=== PATIENT | male | born 1990 | race African-American/Black ===

== ENCOUNTER 2016-06-07 23:53 | Emergency (ER) | payer OTHER ==
[~2016-06-07] VITALS: Ht 160 cm; Wt 63.5 kg
[~2016-06-07 23:53] MED LIST: HYDREA500 M1 PO; PERCOCET 5-3251 EACH PO; ZOFRAN ODT4 M1 PO
--- NOTE | 2016-06-08 01:36 | ED GENERAL ADULT ---
History of Present Illness General Chief Complaint: General Adult Stated Complaint: PT STATES " SICKLE CELL PAIN" Source: patient Exam Limitations: no limitations Vital Signs & Intake/Output Vital Signs & Intake/Output Vital Signs Date Time Temp Pulse Resp B/P Pulse O2 O2 Flow FiO2 Ox Delivery Rate 06/08 0103 98.9 80 18 126/70 91 Allergies Coded Allergies: aspirin (Mild, GI UPSET 05/28/16) hydromorphone (From DILAUDID) (Mild, HIVES AND NAUSEA 05/28/16) ibuprofen (Mild, GI ISSUES 05/28/16) Reconcile Medications Hydroxyurea (Hydrea) 500 MG CAPSULE 1 TAB PO D SICKLE CELL Ondansetron (Zofran Odt) 4 MG TAB.RAPDIS 1 TAB PO Q6 PRN NAUSEA Oxycodone HCl/Acetaminophen (Percocet 5-325 MG Tablet) 5 MG-325 MG TABLET 1 TAB PO Q4-6 PRN PAIN Triage Note: PT WITH HX SICKLE CELL C/O BACK PAIN, BILAT LEG AND ARM PAIN AND SOB FOR A FEW HOURS Triage Nurses Notes Reviewed? yes Onset: Gradual Duration: hour(s):, waxing and waning Timing: recent history Injury Environment: home Severity: moderate Modifying Factors: Improves With: rest. Associated Symptoms: back pain, "body pain" HPI: 26 yo gentleman h/o sickle cell disease with occasional pain crises, presents with back and bilateral leg pain consistent with his prior sickle cell pain crises for the past 3 hours. He denies fever, dyspnea, cough, wheezing. He notes that he might be dehydrated. He is otherwise well. Past History Medical History Any Pertinent Medical History? see below for history Neurological: STROKE HX Gastrointestinal: GI BLEED HX Blood Disorders: sickle cell disease Surgical History Surgical History: non-contributory Psychosocial History What is your primary language Luxembourgish Family History Hx Contributory? No Review of Systems Review of Systems Constitutional: Reports: no symptoms. EENTM: Reports: no symptoms. Respiratory: Reports: no symptoms. Cardiovascular: Reports: no symptoms. GI: Reports: no symptoms. Genitourinary: Reports: no symptoms. Musculoskeletal: Reports: no symptoms. Skin: Reports: no symptoms. Neurological/Psychological: Reports: no symptoms. Hematologic/Endocrine: Reports: no symptoms. Immunologic/Allergic: Reports: no symptoms. All Other Systems: Reviewed and Negative Physical Exam Physical Exam General Appearance: well developed/nourished, mild distress Head: atraumatic, normal appearance Eyes: Bilateral: normal appearance. Ears, Nose, Throat: normal pharynx, normal ENT inspection, hearing grossly normal Neck: normal inspection, supple, full range of motion Respiratory: normal breath sounds, chest non-tender, no respiratory distress, quiet respiration, lungs clear Cardiovascular: regular rate/rhythm Gastrointestinal: normal bowel sounds, soft, non-tender Back: normal inspection Extremities: normal inspection Neurologic/Psych: no motor/sensory deficits, awake, alert, oriented x 3 Skin: intact, normal color, warm/dry Core Measures ACS in differential dx? No CVA/TIA Diagnosis: No Severe Sepsis Present: No Septic Shock Present: No Progress Differential Diagnoses I considered the following diagnoses in my evaluation of the patient: sickle cell disease vs other. Plan of Care: Orders Procedure Date/time Status TROPONIN LEVEL 06/08 140 Complete RETICULOCYTE COUNT 06/08 140 Complete COMPREHENSIVE METABOLIC PANEL 06/08 140 Complete CBC WITHOUT DIFFERENTIAL 06/08 140 Complete EKG 06/08 140 Active Laboratory Tests 06/08/16 0159: Anion Gap 12, Estimated GFR > 60, BUN/Creatinine Ratio 20.0, Glucose 94, Calcium 9.4, Total Bilirubin 5.5 H, AST 89 H, ALT 96 H, Alkaline Phosphatase 179 H, Troponin I < 0.01, Total Protein 7.7, Albumin 4.1, Globulin 3.6, Albumin/ Globulin Ratio 1.1, CBC w Diff MAN DIFF ORDERED, RBC 2.97 L, MCV 97.0 H, MCH 34.1 H, RDW 19.4 H, MPV 10.4, Segmented Neutrophils 55, Lymphocytes 28, Monocytes 16 H, Eosinophils 1, Nucleated RBCs 3 H, Platelet Estimate ADEQUATE, Polychromasia 1+, Hypochromic-Microcytic 1+, Poikilocytosis 1+, Anisocytosis 2+, Target Cells FEW, PUBS MCHC 35.2, Retic Count 5.93 H, Fld Total RBCs Counted 100 Diagnostic Imaging: Viewed by Me: Radiology Read. Discussed w/RAD: Radiology Read. CXR Impression: no acute abnormality, no infiltrates, normal mediastinum, ENLARGED CARDIAC SILHOUETTE Initial ED EKG: normal axis, normal intervals, normal p-waves, normal QRS complex, normal sinus rhythm, LVH Comments: PATIENT: SHAYAN PENALOZA PRESENT AGE: 26 PATIENT ACCOUNT NO: [id number] : 90 LOCATION: [facility] ORDERING PHYSICIAN: ALYCE MARROQUIN MD SERVICE DATE: 06/08/16 EXAM TYPE: RAD - XRY-PORTABLE CHEST XRAY EXAMINATION: XR PORTABLE CHEST CLINICAL INFORMATION: Dyspnea COMPARISON: None. TECHNIQUE: AP portable upright view of the chest FINDINGS: Cardiac silhouette is enlarged. Pulmonary vascularity is normal. Lungs are clear. No consolidation, pneumothorax, or pleural effusion. Tubular radiodense structure overlies the right upper quadrant, most likely external to the patient. Foci of sclerosis are present at the humeral heads bilaterally, potentially due to areas of bone infarct. IMPRESSION: Enlarged cardiac silhouette, either due to cardiomegaly or a pericardial effusion. No acute pulmonary findings DICTATED BY: KEVON TIRADO MD DATE/TIME DICTATED:06/08/16230 HISTOPATHOLOGIST:ULI DATE/TIME TRANSCRIBED:06/08/16230 CONFIDENTIAL, DO NOT COPY WITHOUT APPROPRIATE AUTHORIZATION. <Electronically signed in Other Vendor System> SIGNED BY: KEVON TIRADO MD 06/08/16235 Departure Departure Disposition: HOME OR SELF CARE Condition: Stable Clinical Impression Primary Impression: Sickle cell pain crisis Referrals: UNKNOWN (PCP/Family) Departure Forms: Customer Survey General Discharge Information Comments 06/08/15, 6:24am... pt feeling well after several rounds of morphine. His pulse is 60. He is otherwise well. His labs are stable. He would like to go home. Pt stable for discharge. Critical Care Note Critical Care Note Critical Care Time: non-applicable
--- NOTE | 2016-06-08 02:36 | RADIOLOGY REPORT ---
EXAMINATION: XR PORTABLE CHEST CLINICAL INFORMATION: Dyspnea COMPARISON: None. TECHNIQUE: AP portable upright view of the chest FINDINGS: Cardiac silhouette is enlarged. Pulmonary vascularity is normal. Lungs are clear. No consolidation, pneumothorax, or pleural effusion. Tubular radiodense structure overlies the right upper quadrant, most likely external to the patient. Foci of sclerosis are present at the humeral heads bilaterally, potentially due to areas of bone infarct. IMPRESSION: Enlarged cardiac silhouette, either due to cardiomegaly or a pericardial effusion. No acute pulmonary findings
[2016-06-08 02:42] LABS: HEMATOCRIT 28.8 % (42-52); MEAN CORPUSCULAR HGB 34.1 PG (27.0-31.0); MEAN CORPUSCULAR HGB CONC 35.2 G/DL (33.0-37.0); MEAN PLATELET VOLUME 10.4 FL (7.4-10.4); PLATELET COUNT 292 /CUMM (130-400); RBC DISTRIBUTION WIDTH 19.4 % (11.5-14.5); RED BLOOD CELL CT 2.97 /CUMM (4.70-6.10)
[2016-06-08 02:43] LABS: WHITE BLOOD CELL COUNT 9.5 /CUMM (4.8-10.8)
[2016-06-08 06:37] VITALS: BP 91/57
== END 2016-06-08 07:08 ==
LOC: ERH 23:53
PROVIDERS: Pediatrics
DX: D57.00 Hb-SS disease with crisis, unspecified (principal); M79.604 Pain in right leg; M79.605 Pain in left leg; R06.02 Shortness of breath; M79.601 Pain in right arm; M79.602 Pain in left arm
CPT/HCPCS: 93005; 93010; 96374; 96375; J1200; J2405

== ENCOUNTER 2016-06-22 11:19 | Emergency (ER) | payer OTHER ==
[~2016-06-22] VITALS: Ht 162.6 cm; Wt 63.5 kg
[2016-06-22] MEDS ORDERED: PROAIR HFA8.5 GM INH (11:39)
[2016-06-22] MEDS ORDERED: MONTELUKAST SOD10 M1 PO (11:40)
[2016-06-22] MEDS ORDERED: SYMBICORT 16010.2 GM INH (11:40)
[2016-06-22] MEDS ORDERED: PANTOPRAZOLE SO40 M1 PO (11:40)
[2016-06-22] MEDS ORDERED: LISINOPRIL5 M1 PO (11:40)
[2016-06-22] MEDS ORDERED: VITAMIN D250000 UNIT PO (11:40)
[2016-06-22] MEDS ORDERED: FOLIC ACID1 M1 PO (11:41)
[2016-06-22] MEDS ORDERED: MORPHINE SULFAT30 M3 PO (11:41)
--- NOTE | 2016-06-22 12:02 | ED GENERAL ADULT ---
History of Present Illness General Chief Complaint: General Adult Stated Complaint: BODY ACHES; NAUSEA Source: patient Exam Limitations: no limitations Vital Signs & Intake/Output Vital Signs & Intake/Output Vital Signs Date Time Temp Pulse Resp B/P Pulse O2 O2 Flow FiO2 Ox Delivery Rate 06/22 1526 97.8 77 18 118/69 96 Room Air 06/22 1311 97.4 74 18 121/66 94 Room Air 06/22 1125 98.9 85 18 149/77 98 Room Air Room Air Allergies Coded Allergies: aspirin (Mild, GI UPSET 05/28/16) hydromorphone (From DILAUDID) (Mild, HIVES AND NAUSEA 05/28/16) ibuprofen (Mild, GI ISSUES 05/28/16) Reconcile Medications Albuterol Sulfate (Proair Hfa) 90 MCG HFA.AER.AD 2 PUF INH Q4-6 PRN PRN BREATHING PROBLEMS (Reported) Budesonide/Formoterol Fumarate (Symbicort 160-4.5 Mcg Inhaler) 160 MCG-4.5 MCG/ ACTUATION HFA.AER.AD 2 PUF INH BID BREATHING PROBLEMS (Reported) Ergocalciferol (Vitamin D2) (Vitamin D2) 50,000 UNIT CAPSULE 1 CAP PO QW SUPPLEMENT (Reported) Folic Acid 1 MG TABLET 1 TAB PO DAILY SUPPLEMENT (Reported) Hydroxyurea (Hydrea) 500 MG CAPSULE 1 TAB PO D SICKLE CELL Lisinopril 5 MG TABLET 1 TAB PO DAILY HEART (Reported) Montelukast Sodium 10 MG TABLET 1 TAB PO DAILY ALLERGIES (Reported) Morphine Sulfate (Morphine Sulfate ER) 30 MG TABLET.ER 1 TAB PO BIDP PRN PAIN (Reported) Ondansetron (Zofran Odt) 4 MG TAB.RAPDIS 1 TAB PO Q6 PRN NAUSEA Pantoprazole Sodium 40 MG TABLET.DR 1 TAB PO DAILY GI (Reported) Triage Note: TRIAGE: 26 Y/O MALE PRESENTS W PMHX OF SICKLE CELL ANEMIA. NOW C/O BODY ACHES ADN NAUSEA. AFEBRILE IN TRIAGE. Triage Nurses Notes Reviewed? yes Onset: Abrupt Duration: day(s): (1), constant, continues in ED Timing: recent history Injury Environment: home Severity: moderate, severe No Modifying Factors: none HPI: 26-year-old male comes into emergency room for further evaluation of general body pain as well as nausea. Patient has a history of sickle cell anemia reports that the pain feels similar. Patient is also experiencing some abdominal pain which is new for him. Denies any fever. Denies any upper respiratory symptoms or cough. Denies any vomiting. Patient reports that he had some associated chest tightness and shortness of breath previously. Patient usually goes to [facility] but is currently with a friend that is locaL. Patient reports it feels like his previous sickle cell other than the abdominal pain. (JENNIFER MUNOZ) Past History Travel History Traveled to [place] past 21 day No Medical History Any Pertinent Medical History? see below for history Neurological: STROKE HX Gastrointestinal: GI BLEED HX Blood Disorders: SICKLE CELL ANEMIA Surgical History Surgical History: non-contributory Psychosocial History What is your primary language Maltese Tobacco Use: Never used ETOH Use: occasional use Illicit Drug Use: denies illicit drug use Family History Hx Contributory? No (JENNIFER MUNOZ) Review of Systems Review of Systems Constitutional: Reports: see HPI. EENTM: Reports: no symptoms. Respiratory: Reports: no symptoms. Cardiovascular: Reports: no symptoms. GI: Reports: see HPI. Genitourinary: Reports: no symptoms. Musculoskeletal: Reports: no symptoms. Skin: Reports: no symptoms. Neurological/Psychological: Reports: no symptoms. Hematologic/Endocrine: Reports: no symptoms. Immunologic/Allergic: Reports: no symptoms. All Other Systems: Reviewed and Negative (JENNIFER MUNOZ) Physical Exam Physical Exam General Appearance: well developed/nourished, no apparent distress, alert, awake Head: atraumatic, normal appearance, active bleeding Eyes: Bilateral: normal appearance, EOMI. Ears, Nose, Throat: normal pharynx, normal ENT inspection Neck: normal inspection Respiratory: normal breath sounds, no respiratory distress Cardiovascular: regular rate/rhythm Gastrointestinal: soft, tenderness (mild periumbilical) Back: normal inspection Extremities: normal inspection, normal range of motion Neurologic/Psych: awake, alert, oriented x 3, normal gait Skin: intact, normal color Core Measures ACS in differential dx? Yes CVA/TIA Diagnosis: No Severe Sepsis Present: No Septic Shock Present: No (JENNIFER MUNOZ) Progress Differential Diagnoses I considered the following diagnoses in my evaluation of the patient: Sickle cell crisis, influenza, viral syndrome, appendicitis, diverticulitis, [place], Plan of Care: Orders Procedure Date/time Status Add-on Test (ER Only) 06/22 1348 Active DIRECT BILIRUBIN 06/22 1220 Complete RAPID VIRAL INFLUENZA A 06/22 1151 Complete TROPONIN LEVEL 06/22 1151 Complete RETICULOCYTE COUNT 06/22 1151 Complete COMPREHENSIVE METABOLIC PANEL 06/22 1151 Complete CBC WITHOUT DIFFERENTIAL 06/22 1151 Complete EKG 06/22 1151 Active Laboratory Tests 06/22/16 1220: Anion Gap 7, Estimated GFR > 60, BUN/Creatinine Ratio 8.3, Glucose 89, Calcium 9.1, Total Bilirubin 4.1 H, Direct Bilirubin 0.9 H, AST 79 H, ALT 58, Alkaline Phosphatase 172 H, Troponin I 0.01, Total Protein 7.2, Albumin 4.0, Globulin 3.2, Albumin/Globulin Ratio 1.3, CBC w Diff MAN DIFF ORDERED, RBC 2.80 L, MCV 105.2 H, MCH 35.6 H, RDW 21.8 H, MPV 11.3 H, Gran % 45.9, Lymphocytes % 30.2, Monocytes % 18.3 H, Eosinophils % 3.2, Basophils % 2.4 H, Absolute Granulocytes 3.4, Segmented Neutrophils 44, Band Neutrophils 1, Absolute Lymphocytes 2.2, Lymphocytes 36, Monocytes 18 H, Absolute Monocytes 1.4 H, Eosinophils 1, Absolute Eosinophils 0.2, Absolute Basophils 0.2, Nucleated RBCs 9 H, Polychromasia 2+, Poikilocytosis 3+, Anisocytosis 3+, Macrocytic Cells 3+, Target Cells 1+, Ovalocytes 1+, PUBS MCHC 33.8, Retic Count 8.38 H Initial ED EKG: normal intervals, normal p-waves, normal sinus rhythm, rate (69) Comments: 06/22/2016 2:39:14 PM Patient has been reevaluated multiple times here in the emergency room. Patient has been in no apparent distress. Patient has been on his phone listening to his head phone. Patient has no acute abdomen on exam. No guarding. No rebound tenderness. No suspicion for appendicitis at this time. Discussed early possibility. At this time I do not feel patient needs CAT scan. Case discussed with Dr. Fishman. Patient to return immediately if any other concerns worsening symptoms. Patient has previous sickle cell anemia pain is consistent with previous sickle cell anemia. It was recommended to the patient that he should go to the hospital where all his hematologists are if his symptoms are persistent. (JENNIFER MUNOZ) Departure Departure Disposition: HOME OR SELF CARE Condition: Stable Clinical Impression Primary Impression: Sickle cell anemia Referrals: PATIENT HAS NO PRIMARY CARE DR (PCP/Family) Additional Instructions: If your symptoms persist and get worse go to [facility]. Return to emergency room if any concerns worsening symptoms. Please go over all results of today's visit with your primary care doctor. Contact your primary care doctor to let them know you were here in the emergency room. There may be nonspecific findings which may not be related to your visit today here in the emergency room but may require further evaluation and chronic monitoring by your primary care doctor. If you had a laceration today the chance of foreign body always remains. You should follow-up with your primary care doctor for recheck in 3-5 days for a wound check. If you had an x-ray done there is a chance that a fracture could have been missed on initial read and you should follow-up with your primary care doctor for repeat x-rays if symptoms persist. If your blood pressure was elevated here in the emergency room please have rechecked by her primary care doctor within the next 48 hours by your primary care doctor. If you were prescribed a narcotic here in the emergency room or any type of controlled substances you're not allowed to drive while taking this medication or operate any type of heavy machinery. Narcotics can make you feel lightheaded dizziness nausea and can cause constipation. You may need to nut picker a stool softener. Thank you for choosing [facility] emergency room. Please return to the emergency room immediately if you have any other concerns worsening of symptoms. Departure Forms: Customer Survey General Discharge Information (JENNIFER MUNOZ) PA/RETAIL LOSS PREVENTION SPECIALIST Co-Sign Statement Statement: ED Attending supervision documentation- [] I saw and evaluated the patient. I have also reviewed all the pertinent lab results and diagnostic results. I agree with the findings and the plan of care as documented in the PA's/RETAIL LOSS PREVENTION SPECIALIST's documentation. [X] I have reviewed the ED Record and agree with the PA's/RETAIL LOSS PREVENTION SPECIALIST's documentation. [] Additions or exceptions (if any) to the PAs/RETAIL LOSS PREVENTION SPECIALIST's note and plan are summarized below: [] (KEVIN FLOWERS,MAI Churchill) Critical Care Note Critical Care Note Critical Care Time: non-applicable (JOSE C MUNOZNTON)
[2016-06-22 12:41] LABS: ABSOLUTE BASOPHIL COUNT 0.2 /CUMM (0.0-0.2); ABSOLUTE EOSINOPHIL COUNT 0.2 /CUMM (0.0-0.7); HEMATOCRIT 29.5 % (42-52); MEAN CORPUSCULAR HGB 35.6 PG (27.0-31.0); MEAN CORPUSCULAR HGB CONC 33.8 G/DL (33.0-37.0); MEAN CORPUSCULAR VOLUME 105.2 FL (80.0-94.0); MEAN PLATELET VOLUME 11.3 FL (7.4-10.4); PLATELET COUNT 163 /CUMM (130-400); RBC DISTRIBUTION WIDTH 21.8 % (11.5-14.5)
[2016-06-22 12:58] LABS: WHITE BLOOD CELL COUNT 7.4 /CUMM (4.8-10.8)
[2016-06-22 12:59] LABS: ABSOLUTE GRANULOCYTE CT 3.4 /CUMM (1.4-6.5); ABSOLUTE LYMPH COUNT 2.2 /CUMM (1.2-3.4); ABSOLUTE MONOCYTE COUNT 1.4 /CUMM (0.10-0.60); BASOPHIL % 2.4 % (0.0-2.0); EOSINOPHIL % 3.2 % (0-5); GRANULOCYTE % 45.9 % (42.2-75.2)
[2016-06-22 15:26] VITALS: BP 118/69
== END 2016-06-22 15:27 ==
LOC: ERH 11:19
PROVIDERS: Physician Assistant Medical
DX: D57.1 Sickle-cell disease without crisis (principal); R07.89 Other chest pain; R10.9 Unspecified abdominal pain
CPT/HCPCS: 87804; 87804-59; 93005; 93010; 96374; 96375; 96376; J2405

== ENCOUNTER 2016-07-20 12:55 | Emergency (ER) | payer OTHER ==
[~2016-07-20] VITALS: Ht 167.6 cm; Wt 63.5 kg
[~2016-07-20 12:55] MED LIST changes: +FOLIC ACID1 M1 PO; +LISINOPRIL5 M1 PO; +MONTELUKAST SOD10 M1 PO; +MORPHINE SULFAT30 M3 PO; +PANTOPRAZOLE SO40 M1 PO; +PROAIR HFA8.5 GM INH; +SYMBICORT 16010.2 GM INH; +VITAMIN D250000 UNIT PO
--- NOTE | 2016-07-20 13:46 | ED GENERAL ADULT ---
History of Present Illness General Chief Complaint: General Adult Stated Complaint: SICKLE CELL PAIN Source: patient Exam Limitations: no limitations Allergies Coded Allergies: aspirin (Mild, GI UPSET 07/20/16) hydromorphone (From DILAUDID) (Mild, HIVES AND NAUSEA 07/20/16) ibuprofen (Mild, GI ISSUES 07/20/16) Triage Note: PT TO ED WITH C/O "ALL OVER SICKLE CELL PAIN, TAKING PRESCRIBED MORPHINE, NOT HELPING". LAST MORPHINE 0300 THIS MORNING. Triage Nurses Notes Reviewed? yes HPI: 26-year-old male with significant past medical history of sickle cell anemia seen for evaluation of pain in his arms and legs. He reports worsening pain in his upper and lower extremities since about noon yesterday. He denies any recent trauma or any ill contacts. He denies any chest or abdominal pain but does admit to associated nausea. Additionally he denies any headache, fever, chills, palpitations, shortness of breath, vomiting, diarrhea. His fuel cell repairer is located at [facility] and he has been reportedly been coming to [facility] recently because he is living "in the area"with his best friend. (MADAY FLOWERS,FABIOLA) Vital Signs & Intake/Output Vital Signs & Intake/Output Vital Signs Date Time Temp Pulse Resp B/P Pulse O2 O2 Flow FiO2 Ox Delivery Rate 07/20 1346 100 Room Air 07/20 1303 97.1 81 20 109/67 95 Room Air Room Air Reconcile Medications Albuterol Sulfate (Proair Hfa) 90 MCG HFA.AER.AD 2 PUF INH Q4-6 PRN PRN BREATHING PROBLEMS (Reported) Budesonide/Formoterol Fumarate (Symbicort 160-4.5 Mcg Inhaler) 160 MCG-4.5 MCG/ ACTUATION HFA.AER.AD 2 PUF INH BID BREATHING PROBLEMS (Reported) Ergocalciferol (Vitamin D2) (Vitamin D2) 50,000 UNIT CAPSULE 1 CAP PO QW SUPPLEMENT (Reported) Folic Acid 1 MG TABLET 1 TAB PO DAILY SUPPLEMENT (Reported) Hydroxyurea (Hydrea) 500 MG CAPSULE 1 TAB PO D SICKLE CELL Lisinopril 5 MG TABLET 1 TAB PO DAILY HEART (Reported) Montelukast Sodium 10 MG TABLET 1 TAB PO DAILY ALLERGIES (Reported) Morphine Sulfate (Morphine Sulfate ER) 30 MG TABLET.ER 1 TAB PO BIDP PRN PAIN (Reported) Morphine Sulfate 15 MG TABLET 1 TAB PO BIDP PRN PAIN (Reported) Ondansetron (Zofran Odt) 4 MG TAB.RAPDIS 1 TAB PO Q6 PRN NAUSEA Pantoprazole Sodium 40 MG TABLET.DR 1 TAB PO DAILY GI (Reported) (BRYON FLOWERS,HECTOR Negrete) Past History Travel History Traveled to [place] past 21 day No Medical History Any Pertinent Medical History? see below for history Neurological: STROKE HX EENT: NONE Cardiovascular: hypertension Respiratory: asthma Gastrointestinal: GI BLEED HX Hepatic: NONE Renal: NONE Musculoskeletal: NONE Psychiatric: depression Endocrine: hypothyroidism Blood Disorders: SICKLE CELL ANEMIA Cancer(s): NONE TRAINING OFFICER/Reproductive: NONE Surgical History Surgical History: non-contributory Psychosocial History What is your primary language East Timorese Tobacco Use: Never used ETOH Use: denies use Illicit Drug Use: denies illicit drug use Family History Hx Contributory? Yes (FABIOLA NASSAR MD) Review of Systems Review of Systems Constitutional: Reports: see HPI. (FABIOLA NASSAR MD) Physical Exam Physical Exam General Appearance: well developed/nourished, no apparent distress, alert, awake , comfortable Comments: General -well-developed, thin -[place]ue[place] man in no acute distress HEENT - NCAT, PERRL, EOMI, anicteric sclera Cardio - S1, S2 w/o murmurs/gallops/rubs, nontender to palpation Resp - CTA bilaterally w/o wheezing/rhochi/crackles GI - soft, nontender, nondistended, bowel sounds present Neuro - Awake and alert, CN II - XII grossly intact Extremities - no edema, pulses intact, upper/lower extremity tenderness Core Measures ACS in differential dx? No CVA/TIA Diagnosis: No Severe Sepsis Present: No Septic Shock Present: No (FABIOLA NASSAR MD) Progress Differential Diagnoses I considered the following diagnoses in my evaluation of the patient: sickle cell crisis, dehydration, viral illness Initial ED EKG: none Comments: Patient has multiple admissions for similar presentations to [facility]. Previous lab work is pharmaceutical representative of a mild anemia. Patient's vital signs and physical examination do not demonstrate any acute findings, patient appears comfortable seen lying flat in bed talking on his phone in no acute distress. [place] prescription monitoring program profile demonstrates prescriptions for narcotic pain medications from different providers. Complete blood count demonstrated a mild anemia with an elevated reticulocyte count. Comprehensive metabolic panel was within normal limits. Direct bilirubin was mildly elevated Morphine was given for pain relief. Zofran was given for nausea. Patient was given intravenous normal saline. Patient is to be discharged to home with instruction to follow up with his fuel cell repairer at [facility] on his previously scheduled appointment date of July 26. (FABIOLA NASSAR MD) Plan of Care: Orders Procedure Date/time Status RETICULOCYTE COUNT 07/20 1333 Complete DIRECT BILIRUBIN 07/20 1333 Complete COMPREHENSIVE METABOLIC PANEL 07/20 1333 Complete CBC WITHOUT DIFFERENTIAL 07/20 1333 Complete Laboratory Tests 07/20/16 1340: Anion Gap 8, Estimated GFR > 60, BUN/Creatinine Ratio 11.7, Glucose 92, Calcium 9.1, Total Bilirubin 3.4 H, Direct Bilirubin 0.9 H, AST 62 H, ALT 52, Alkaline Phosphatase 175 H, Total Protein 7.1, Albumin 3.8, Globulin 3.3, Albumin/Globulin Ratio 1.2, CBC w Diff MAN DIFF ORDERED, RBC 3.01 L, MCV 101.9 H, MCH 34.1 H, RDW 18.3 H, MPV 10.0, Gran % 58.7, Lymphocytes % 23.3, Monocytes % 16.1 H, Eosinophils % 1.9, Basophils % 0 L, Absolute Granulocytes 4.6, Segmented Neutrophils 49, Absolute Lymphocytes 1.8, Lymphocytes 35, Monocytes 14 H, Absolute Monocytes 1.3 H, Eosinophils 2, Absolute Eosinophils 0.1, Absolute Basophils 0, Nucleated RBCs 8 H, Platelet Estimate VERIFIED BY SMEAR, Polychromasia 2+, Poikilocytosis 2+, Anisocytosis 2+, Macrocytic Cells 1+ , Target Cells 1+, PUBS MCHC 33.5, Retic Count 8.44 H Departure Departure Disposition: HOME OR SELF CARE Condition: Stable Clinical Impression Primary Impression: Sickle cell anemia with pain Referrals: PATIENT HAS NO PRIMARY CARE DR (PCP/Family) Additional Instructions: Follow-up with your fuel cell repairer at [facility] for further evaluation and pain management of your sickle cell disease. Follow-up with your primary care provider after discharge for further evaluation. Departure Forms: Customer Survey General Discharge Information (FABIOLA NASSAR MD) Resident Co-Sign Statement Statement: ED Attending supervision documentation- [X] I saw and evaluated the patient. I have also reviewed all the pertinent lab results and diagnostic results. I agree with the findings and the plan of care as documented in the Resident's documentation. [] I have reviewed the ED Record and agree with the Resident's documentation. [] Additions or exceptions (if any) to the Resident's note and plan are summarized below: [] (BRYON FLOWERS,HECTOR Negrete) Critical Care Note Critical Care Note Critical Care Time: non-applicable (MADAY FLOWERS,FABIOLA)
[2016-07-20] MEDS ORDERED: MORPHINE SULFAT15 M4 PO (14:01)
[2016-07-20 14:05] LABS: ABSOLUTE LYMPH COUNT 1.8 /CUMM (1.2-3.4)
[2016-07-20 14:10] LABS: ABSOLUTE BASOPHIL COUNT 0 /CUMM (0.0-0.2); ABSOLUTE EOSINOPHIL COUNT 0.1 /CUMM (0.0-0.7); ABSOLUTE GRANULOCYTE CT 4.6 /CUMM (1.4-6.5); ABSOLUTE MONOCYTE COUNT 1.3 /CUMM (0.10-0.60); BASOPHIL % 0 % (0.0-2.0); EOSINOPHIL % 1.9 % (0-5); GRANULOCYTE % 58.7 % (42.2-75.2); HEMATOCRIT 30.6 % (42-52); MEAN CORPUSCULAR HGB 34.1 PG (27.0-31.0); MEAN CORPUSCULAR HGB CONC 33.5 G/DL (33.0-37.0); MEAN CORPUSCULAR VOLUME 101.9 FL (80.0-94.0); PLATELET COUNT 360 /CUMM (130-400); RBC DISTRIBUTION WIDTH 18.3 % (11.5-14.5); RED BLOOD CELL CT 3.01 /CUMM (4.70-6.10)
[2016-07-20 14:37] LABS: WHITE BLOOD CELL COUNT 7.8 /CUMM (4.8-10.8)
[2016-07-20 15:33] VITALS: BP 117/71
== END 2016-07-20 15:58 ==
LOC: ERH 12:55
PROVIDERS: Internal Medicine Interventional Cardiology
DX: D57.00 Hb-SS disease with crisis, unspecified (principal)
CPT/HCPCS: 96361; 96374; 96375; 96376; J2405

== ENCOUNTER 2016-08-17 13:18 | Emergency (ER) | payer OTHER ==
[~2016-08-17] VITALS: Ht 162.6 cm; Wt 63.5 kg
[~2016-08-17 13:18] MED LIST changes: +MORPHINE SULFAT15 M4 PO
--- NOTE | 2016-08-17 13:26 | ED GENERAL ADULT ---
History of Present Illness General Chief Complaint: General Adult Stated Complaint: SICKLE CELL CRISIS Source: patient, old records Exam Limitations: no limitations Vital Signs & Intake/Output Vital Signs & Intake/Output Vital Signs Date Time Temp Pulse Resp B/P Pulse O2 O2 Flow FiO2 Ox Delivery Rate 08/17 1526 98.0 60 18 108/66 97 Room Air 08/17 1320 97.6 67 16 120/66 94 Room Air Allergies Coded Allergies: aspirin (Mild, GI UPSET 07/20/16) hydromorphone (From DILAUDID) (Mild, HIVES AND NAUSEA 07/20/16) ibuprofen (Mild, GI ISSUES 07/20/16) Reconcile Medications Albuterol Sulfate (Proair Hfa) 90 MCG HFA.AER.AD 2 PUF INH Q4-6 PRN PRN BREATHING PROBLEMS (Reported) Budesonide/Formoterol Fumarate (Symbicort 160-4.5 Mcg Inhaler) 160 MCG-4.5 MCG/ ACTUATION HFA.AER.AD 2 PUF INH BID BREATHING PROBLEMS (Reported) Ergocalciferol (Vitamin D2) (Vitamin D2) 50,000 UNIT CAPSULE 1 CAP PO QW SUPPLEMENT (Reported) Folic Acid 1 MG TABLET 1 TAB PO DAILY SUPPLEMENT (Reported) Hydroxyurea (Hydrea) 500 MG CAPSULE 1 TAB PO D SICKLE CELL Lisinopril 5 MG TABLET 1 TAB PO DAILY HEART (Reported) Montelukast Sodium 10 MG TABLET 1 TAB PO DAILY ALLERGIES (Reported) Morphine Sulfate (Morphine Sulfate ER) 30 MG TABLET.ER 1 TAB PO BIDP PRN PAIN (Reported) Morphine Sulfate 15 MG TABLET 1 TAB PO BIDP PRN PAIN (Reported) Ondansetron (Zofran Odt) 4 MG TAB.RAPDIS 1 TAB PO Q6 PRN NAUSEA Pantoprazole Sodium 40 MG TABLET.DR 1 TAB PO DAILY GI (Reported) Triage Note: PT STATES HE IS IN SICKLE CELL CRISIS. PT STATES HE IS HAVING PAIN AND NAUSEA. Triage Nurses Notes Reviewed? yes Onset: Abrupt Duration: day(s): (1), intermittent, waxing and waning Timing: recent history Injury Environment: home Severity: moderate Severity Numbers: 8 No Modifying Factors: none Associated Symptoms: NAUSEA HPI: Is a 26-year-old male with history of sickle cell anemia CVA DC presents emergency room for evaluation complaining of moderate aching intermittent pain waxing and waning in intensity to his arms and legs since waking this morning. He states he took one of his morphine pills at 6 AM this morning without improvement. He is been no recent injury or trauma. He is also complaining of generalized nausea no abdominal pain. He reports to similar episodes in the past. No chest pain abdominal pain fever chills no vomiting no diarrhea. The patient is seen by patternmaker bench at [facility] whom he saw yesterday for a well checkup. Past History Travel History Traveled to [place] past 21 day No Medical History Any Pertinent Medical History? 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 No Review of Systems Review of Systems Constitutional: Reports: see HPI. All Other Systems: Reviewed and Negative Comments Review of systems: See HPI, All other systems negative. Constitutional, no chills no fever, no malaise HEENT: no sore throat no congestion, no ear pain Cardiovascular: No chest pain , no palpitation , Skin, no jaundice no rashes, no change in skin Respiratory: No dyspnea no cough no sputum GI: No nausea no vomiting, no diarrhea, : No dysuria Muscle skeletal: No joint pain, no joint swelling, no back pain Neurologic: No numbness, no headache Psych: No stress Heme/endocrine: No bruising no bleeding Immunology: No lymphadenopathy, Physical Exam Physical Exam General Appearance: well developed/nourished, no apparent distress, alert, awake Peripheral Pulses: 2+ radial (R), 2+ radial (L), 2+ tibialis posterior (R), 2+ tibialis posterior ( L) Comments: Well-developed well-nourished person in no acute distress HEENT: Normal EENT exam; PERRL, EOMI, HEAD is atraumatic. moist mucous membranes. Neck: Supple, normal range of motion without pain or tenderness Back: Nontender, no CVA tenderness. Full range of motion Cardiovascular: Regular rate and rhythms no murmurs rubs Respiratory: No respiratory distress. Patient speaking in full complete sentences. Breath sounds clear to auscultation bilaterally: NO W/R/R Abdomen: Soft, nontender nondistended, no appreciable organomegaly. Normal bowel sounds. No rebound/guarding Extremity: No edema, full range of motion of extremities, 5 out of 5 strength noted to bilateral upper and lower extremities, capillary refill is within normal limits, pulses are 2+ bilaterally Neuro: Alert oriented x3, motor sensory normal, There were no obvious focal neurologic abnormalities. Skin: No appreciable rash on exposed skin, skin is warm and dry. Psych: Mood and affect is normal, memory and judgment is normal. Core Measures ACS in differential dx? No CVA/TIA Diagnosis: No Severe Sepsis Present: No Septic Shock Present: No Progress Differential Diagnoses I considered the following diagnoses in my evaluation of the patient: SICKLE CELL CRISIS, DEHYDRATION, VIRAL SYNDROME Plan of Care: Orders Procedure Date/time Status Saline Lock 08/17 1326 Active RETICULOCYTE COUNT 08/17 1326 Complete COMPREHENSIVE METABOLIC PANEL 08/17 1326 Complete CBC WITHOUT DIFFERENTIAL 08/17 1326 Complete Laboratory Tests 08/17/16 1333: Anion Gap 9, Estimated GFR > 60, BUN/Creatinine Ratio 13.3, Glucose 107 H, Calcium 9.5, Total Bilirubin 6.6 H, AST 72 H, ALT 57, Alkaline Phosphatase 171 H, Total Protein 7.5, Albumin 4.1, Globulin 3.4, Albumin/Globulin Ratio 1.2, CBC w Diff MAN DIFF ORDERED, RBC 3.14 L, MCV 97.4 H, MCH 33.4 H, RDW 19.6 H, MPV 10.2, Segmented Neutrophils 59, Lymphocytes 26, Monocytes 7, Eosinophils 6 H, Basophils 2, Nucleated RBCs 18 H, Platelet Estimate ADEQUATE, Polychromasia 2+, Hypochromic-Microcytic 2+, Poikilocytosis 3+, Anisocytosis 3+, Target Cells 1+, Ovalocytes 1+, Elliptocytes 1+, Schistocytes 1+, PUBS MCHC 34.3, Retic Count 7.37 H Old records reviewed patient medicated with morphine 4 mg IV Zofran 4 mg IV labs ordered Old records reviewed patient H&H is baseline, his elevated bilirubin 6.6 today is unchanged from previous-5.5, 4.1, 3.4 in old records Discussed with patient ALL his lab results he is feeling improved after second administration of morphine 2 mg he will follow up with his patternmaker bench on Friday, he feels comfortable this plan, i answered all of his questions. (DEAN SCHULTZ,NIURKA) Initial ED EKG: none Departure Departure Disposition: HOME OR SELF CARE Condition: Stable Clinical Impression Primary Impression: Sickle cell crisis Secondary Impressions: Elevated bilirubin Referrals: PATIENT HAS NO PRIMARY CARE DR (PCP/Family) Additional Instructions: FOLLOW UP WITH YOUR INFORMATION TECHNOLOGY ACCOUNT MANAGER ON FRIDAY. CONTINUE TAKING YOUR MEDICATIONS PRESCRIBED. Departure Forms: Customer Survey General Discharge Information Critical Care Note Critical Care Note Critical Care Time: non-applicable
[2016-08-17 13:49] LABS: HEMATOCRIT 30.6 % (42-52); MEAN CORPUSCULAR HGB 33.4 PG (27.0-31.0); MEAN CORPUSCULAR HGB CONC 34.3 G/DL (33.0-37.0); MEAN CORPUSCULAR VOLUME 97.4 FL (80.0-94.0); MEAN PLATELET VOLUME 10.2 FL (7.4-10.4); PLATELET COUNT 217 /CUMM (130-400); RBC DISTRIBUTION WIDTH 19.6 % (11.5-14.5); RED BLOOD CELL CT 3.14 /CUMM (4.70-6.10)
[2016-08-17 15:26] VITALS: BP 108/66
== END 2016-08-17 15:44 ==
LOC: ERH 13:18
PROVIDERS: Physician Assistant Medical
DX: D57.00 Hb-SS disease with crisis, unspecified (principal); R17 Unspecified jaundice
CPT/HCPCS: 96374; 96375; 96376; J2405

== ENCOUNTER 2016-09-29 15:29 | Emergency (ER) | payer OTHER ==
[~2016-09-29] VITALS: Ht 162.6 cm; Wt 63.5 kg
[2016-09-29 15:32] VITALS: BP 122/75
--- NOTE | 2016-09-29 15:43 | ED GENERAL ADULT ---
History of Present Illness General Chief Complaint: General Adult Stated Complaint: PT IS HERE NOT FEELING WELL Source: patient, old records Exam Limitations: no limitations Vital Signs & Intake/Output Vital Signs & Intake/Output Vital Signs Date Time Temp Pulse Resp B/P B/P Pulse O2 O2 Flow FiO2 Mean Ox Delivery Rate 09/29 1532 98.3 55 18 122/75 96 Room Air Allergies Coded Allergies: aspirin (Mild, GI UPSET 07/20/16) hydromorphone (From DILAUDID) (Mild, HIVES AND NAUSEA 07/20/16) ibuprofen (Mild, GI ISSUES 07/20/16) Reconcile Medications Albuterol Sulfate (Proair Hfa) 90 MCG HFA.AER.AD 2 PUF INH Q4-6 PRN PRN BREATHING PROBLEMS (Reported) Budesonide/Formoterol Fumarate (Symbicort 160-4.5 Mcg Inhaler) 160 MCG-4.5 MCG/ ACTUATION HFA.AER.AD 2 PUF INH BID BREATHING PROBLEMS (Reported) Ergocalciferol (Vitamin D2) (Vitamin D2) 50,000 UNIT CAPSULE 1 CAP PO QW SUPPLEMENT (Reported) Folic Acid 1 MG TABLET 1 TAB PO DAILY SUPPLEMENT (Reported) Hydroxyurea (Hydrea) 500 MG CAPSULE 1 TAB PO D SICKLE CELL Lisinopril 5 MG TABLET 1 TAB PO DAILY HEART (Reported) Montelukast Sodium 10 MG TABLET 1 TAB PO DAILY ALLERGIES (Reported) Morphine Sulfate (Morphine Sulfate ER) 30 MG TABLET.ER 1 TAB PO BIDP PRN PAIN (Reported) Morphine Sulfate 15 MG TABLET 1 TAB PO BIDP PRN PAIN (Reported) Ondansetron (Zofran Odt) 4 MG TAB.RAPDIS 1 TAB PO Q6 PRN NAUSEA Pantoprazole Sodium 40 MG TABLET.DR 1 TAB PO DAILY GI (Reported) Triage Note: PT TO ER STATES THAT ABOUT 3 HOURS AGO HE STARTED WITH HIS SICKLE CELL PAIN. PTS DOCTORS ARE IN [place] BUT STATES THAT HE WAS VISITING FAMILY [place]. PT TAKES MORPHINE AT HOME FOR PAIN . LAST DOSE WAS 1000 THIS AM. Triage Nurses Notes Reviewed? yes Onset: Gradual Duration: day(s): (1), constant Timing: recent history Injury Environment: home Severity: mild, moderate Severity Numbers: 5 No Modifying Factors: none Associated Symptoms: denies HPI: This is a 26-year-old male with history significant of sickle cell anemia, CVA IA presents to the ER for evaluation stating that for the past 4 hours he's had gradual onset generalized leg cramping pain. He states that this feels similar to how his crisis episodes have started in the past. Symptoms are constant moderate aching. He denies chest pain shortness of breath fever chills rashes. His triage rn is out of Ten Sleep. Patient is also complaining of nausea he denies abdominal pain no vomiting no diarrhea black or bloody stools. He took morphine which she normally takes as needed for hours ago and the symptoms began as well as Zofran without improvement in his symptoms and came here for evaluation (NIURKA WREN) Past History Travel History Traveled to [place] past 21 day No Medical History Any Pertinent Medical History? see below for history Neurological: STROKE HX EENT: NONE Cardiovascular: hypertension Respiratory: asthma Gastrointestinal: GI BLEED HX Hepatic: NONE Renal: NONE Musculoskeletal: NONE Psychiatric: depression Endocrine: hypothyroidism Blood Disorders: SICKLE CELL ANEMIA Cancer(s): NONE LEGAL PRACTICE MANAGER/Reproductive: NONE Surgical History Surgical History: non-contributory Psychosocial History What is your primary language Greek Tobacco Use: Never used ETOH Use: denies use Illicit Drug Use: denies illicit drug use Family History Hx Contributory? No (NIURKA WREN) Review of Systems Review of Systems Constitutional: Reports: see HPI. All Other Systems: Reviewed and Negative Comments Review of systems: See HPI, All other systems negative. Constitutional, no chills no fever, no malaise no weight loss HEENT: no sore throat no congestion, no ear pain Cardiovascular: No chest pain , no palpitation , no orthopnea Skin: no rashes, no change in skin Respiratory: No dyspnea no cough no sputum no hemoptysis GI: No nausea no vomiting, no diarrhea, no bloating/constipation : No dysuria No hematuria, no frequency, no discharge Muscle skeletal: No joint pain, no joint swelling, no back pain, no neck pain, Neurologic: No numbness no confusion, no headache Psych: No stress no depression,. Heme/endocrine: No bruising no bleeding Immunology: No lymphadenopathy (NIURKA WREN) Physical Exam Physical Exam General Appearance: well developed/nourished, alert, awake Comments: Well-developed well-nourished person in no acute distress HEENT: Normal EENT exam; PERRL, EOMI, HEAD is atraumatic. moist mucous membranes. Neck: Supple, normal range of motion Back: Nontender, no CVA tenderness. Full range of motion Cardiovascular: Regular rate and rhythms no murmurs rubs Respiratory: Chest nontender.There were no bony deformities, no asymmetry. No respiratory distress. Patient speaking in full complete sentences. Breath sounds clear to auscultation bilaterally: NO W/R/R Abdomen: Soft, nontender nondistended, no appreciable organomegaly. Normal bowel sounds. No rebound/guarding, Extremity: No edema, full range of motion of extremities, normal and equal pulses bilaterally, 5 out of 5 strength noted to bilateral upper and lower extremities Neuro: Alert oriented x3, motor sensory normal, There were no obvious focal neurologic abnormalities. Skin: No appreciable rash on exposed skin, skin is warm and dry. Psych: Mood and affect is normal, memory and judgment is normal. Core Measures ACS in differential dx? No CVA/TIA Diagnosis: No Severe Sepsis Present: No Septic Shock Present: No (NIURKA WREN) Progress Differential Diagnoses I considered the following diagnoses in my evaluation of the patient: [Sickle cell crisis acute chest syndrome electrolyte abnormality dehydration Plan of Care: Current Medications Sig/Chayo Start time Last Medication Dose Stop Time Status Admin Morphine Sulfate 6 MG ONCE ONE 09/29 1544 CAN (Morphine) 09/29 1545 Patient has been seen numerous times in the past, advised he follow up with his triage rn tomorrow. Advised return anytime sooner with any concerns I had an extensive conversation regarding need for close follow up with their primary care physician this week as well as return precautions. I answered all of their questions, they feel comfortable with the plan and follow-up care. (NIURKA WREN) Initial ED EKG: none (NIURKA WREN) Departure Departure Time of Disposition: 1545 Disposition: HOME OR SELF CARE Condition: Stable Clinical Impression Primary Impression: Sickle cell pain crisis Referrals: UNKNOWN (PCP/Family) Additional Instructions: Follow-up with your triage rn tomorrow continue taking her pain medication nausea medicine as directed return with any concerns. Departure Forms: Customer Survey General Discharge Information (NIURKA WREN) PA/METEOROLOGY TEACHER Co-Sign Statement Statement: ED Attending supervision documentation- [] I saw and evaluated the patient. I have also reviewed all the pertinent lab results and diagnostic results. I agree with the findings and the plan of care as documented in the PA's/METEOROLOGY TEACHER's documentation. [X] I have reviewed the ED Record and agree with the PA's/METEOROLOGY TEACHER's documentation. [] Additions or exceptions (if any) to the PAs/METEOROLOGY TEACHER's note and plan are summarized below: [] (KEVIN FLOWERS,MAI Churchill) Critical Care Note Critical Care Note Critical Care Time: non-applicable (NIURKA WREN)
== END 2016-09-29 16:04 ==
LOC: ERH 15:29
DX: D57.00 Hb-SS disease with crisis, unspecified (principal)
CPT/HCPCS: 96372; J3101

== ENCOUNTER 2017-09-05 22:13 | Emergency (ER) | payer OTHER ==
[2017-09-05 22:18] VITALS: BP 115/73
[2017-09-05 22:54] LABS: PT 14.2 SEC (9.4-12.5); PTT 29 SEC (25-37)
[2017-09-05 22:56] LABS: HEMATOCRIT 28.9 % (42-52); MEAN CORPUSCULAR HGB 33.7 PG (27.0-31.0); MEAN CORPUSCULAR HGB CONC 35.5 G/DL (33.0-37.0); MEAN CORPUSCULAR VOLUME 95.1 FL (80.0-94.0); MEAN PLATELET VOLUME 11.1 FL (7.4-10.4); PLATELET COUNT 198 /CUMM (130-400); RBC DISTRIBUTION WIDTH 21.3 % (11.5-14.5); RED BLOOD CELL CT 3.04 /CUMM (4.70-6.10); WHITE BLOOD CELL COUNT 17.1 /CUMM (4.8-10.8)
--- NOTE | 2017-09-06 00:39 | ED GENERAL ADULT ---
History of Present Illness General Chief Complaint: General Adult Stated Complaint: +V BLACK "STUFF" "MY SICKLE CELL IS ACTING UP" Source: patient Exam Limitations: no limitations Vital Signs & Intake/Output Vital Signs & Intake/Output Vital Signs Date Time Temp Pulse Resp B/P B/P Pulse O2 O2 Flow FiO2 Mean Ox Delivery Rate 09/05 2218 98.0 105 20 115/73 96 ED Intake and Output 09/06 0000 09/05 1200 Intake Total Output Total Balance Patient 140 lb Weight Allergies Coded Allergies: aspirin (Mild, GI UPSET 07/20/16) hydromorphone (From DILAUDID) (Mild, HIVES AND NAUSEA 07/20/16) ibuprofen (Mild, GI ISSUES 07/20/16) Triage Note: PER PT VOMITING BLACK STUFF ALL DAY AND SEVERE BODY PAIN FROM SICKLE CELL Triage Nurses Notes Reviewed? yes Onset: Abrupt Duration: day(s): (1), changing over time, continues in ED, getting worse Timing: recent history Injury Environment: home Severity: mild, moderate Severity Numbers: 9 No Modifying Factors: none Associated Symptoms: back pain HPI: 27-year-old male past medical history of sickle cell anemia, GI bleed, hypertension, and asthma presents for evaluation of diffuse body pain and vomiting. Patient states symptoms started today with epigastric abdominal pain and multiple episodes of vomiting. He states that he vomited black material. He states that he had similar symptoms back when he had a GI bleed several years ago. He denies any melena or prior blood per rectum. He had a normal bowel movement earlier today. He denies any chest pain or shortness of breath. He reports pain located in the bilateral upper and lower extremities as well as his lower back. He's been taking morphine at home without much improvement. No chest pain no shortness of breath. No hemoptysis or lower EXTREMITY edema. No fevers. (Wilfred SCHULTZ,Osito) Reconcile Medications Albuterol Sulfate (Proair Hfa) 90 MCG HFA.AER.AD 2 PUF INH Q4-6 PRN PRN BREATHING PROBLEMS (Reported) Budesonide/Formoterol Fumarate (Symbicort 160-4.5 Mcg Inhaler) 160 MCG-4.5 MCG/ ACTUATION HFA.AER.AD 2 PUF INH BID BREATHING PROBLEMS (Reported) Ergocalciferol (Vitamin D2) (Vitamin D2) 50,000 UNIT CAPSULE 1 CAP PO QW SUPPLEMENT (Reported) Folic Acid 1 MG TABLET 1 TAB PO DAILY SUPPLEMENT (Reported) Lisinopril 5 MG TABLET 1 TAB PO DAILY HEART (Reported) Montelukast Sodium 10 MG TABLET 1 TAB PO DAILY ALLERGIES (Reported) Morphine Sulfate (Morphine Sulfate ER) 30 MG TABLET.ER 1 TAB PO BIDP PRN PAIN (Reported) Morphine Sulfate 15 MG TABLET 1 TAB PO BIDP PRN PAIN (Reported) Ondansetron (Zofran Odt) 4 MG TAB.RAPDIS 1 TAB PO Q6 PRN NAUSEA Ondansetron (Zofran Odt) 4 MG TAB.RAPDIS 1 TAB SL TID PRN NAUSEA Pantoprazole Sodium 40 MG TABLET.DR 1 TAB PO DAILY GI (Reported) Pantoprazole Sodium (Protonix) 40 MG TABLET.DR 1 TAB PO DAILY STOMACH BURNING (Michaela FLOWERS,Jairon Plasencia) Past History Travel History Traveled to [place] past 21 day No Medical History Any Pertinent Medical History? see below for history Neurological: STROKE HX EENT: NONE Cardiovascular: hypertension Respiratory: asthma Gastrointestinal: GI BLEED HX Hepatic: NONE Renal: NONE Musculoskeletal: NONE Psychiatric: depression Endocrine: hypothyroidism Blood Disorders: SICKLE CELL ANEMIA Cancer(s): NONE ART MODEL/Reproductive: NONE Surgical History Surgical History: non-contributory Psychosocial History What is your primary language Macanese Tobacco Use: Never used Family History Hx Contributory? No (Osito Simpson) Review of Systems Review of Systems Constitutional: Reports: no symptoms. EENTM: Reports: no symptoms. Respiratory: Reports: no symptoms. Cardiovascular: Reports: no symptoms. GI: Reports: see HPI, abdominal pain, vomiting. Genitourinary: Reports: no symptoms. Musculoskeletal: Reports: back pain, joint pain, muscle pain, muscle stiffness. Skin: Reports: no symptoms. Neurological/Psychological: Reports: no symptoms. Hematologic/Endocrine: Reports: no symptoms. Immunologic/Allergic: Reports: no symptoms. All Other Systems: Reviewed and Negative (Osito Simpson) Physical Exam Physical Exam General Appearance: well developed/nourished, no apparent distress, alert, awake Head: atraumatic, normal appearance Eyes: Bilateral: normal appearance, PERRL, EOMI. Ears, Nose, Throat: normal pharynx, normal ENT inspection, hearing grossly normal Neck: normal inspection, supple, full range of motion Respiratory: normal breath sounds, chest non-tender, no respiratory distress, lungs clear Cardiovascular: regular rate/rhythm, normal peripheral pulses Peripheral Pulses: 2+ radial (R), 2+ radial (L) Gastrointestinal: normal bowel sounds, soft, no organomegaly, tenderness ( EPIGASTRIC ) Rectal: normal exam, normal rectal tone, heme negative stool Back: normal inspection, normal range of motion, LUMBAR SPINE AND PARASPINOUS MUSCLES TENDER TO PALPATION BILATERALLY NO STEP-OFFS OR DEFORMITIES NO BRUISING SWELLING OR ABRASIONS Extremities: normal inspection, normal capillary refill, normal range of motion, no edema Neurologic/Psych: no motor/sensory deficits, awake, alert, oriented x 3, normal gait Skin: intact, normal color, warm/dry Lymphatic: no anterior cervical esvin Core Measures ACS in differential dx? No CVA/TIA Diagnosis: No Sepsis Present: No Sepsis Focused Exam Completed? No (Wilfred SCHULTZ,Osito) Progress Differential Diagnoses I considered the following diagnoses in my evaluation of the patient: [Sickle cell crisis, pulmonary infarct, pneumonia, GI bleeding, pulmonary embolism,] Plan of Care: Orders Procedure Date/time Status Add-on Test (ER Only) 09/06 0039 Active MISTAKE 09/06 0001 Active Add-on Test (ER Only) 09/05 2353 Active PROTHROMBIN TIME 09/05 2231 Complete LIPASE 09/05 2231 Complete DIRECT BILIRUBIN 09/05 2231 Complete RETICULOCYTE COUNT 09/05 2221 Complete PARTIAL THROMBOPLASTIN TIME 09/05 2221 Complete LACTIC ACID 09/05 2221 Complete COMPREHENSIVE METABOLIC PANEL 09/05 2221 Complete CBC WITHOUT DIFFERENTIAL 09/05 2221 Complete Laboratory Tests 09/06/17 0121: Lactic Acid Cancelled 09/05/17 2231: Anion Gap 13, Estimated GFR 56 L, BUN/Creatinine Ratio 12.0, Glucose 113 H, Lactic Acid 1.5, Calcium 9.9, Total Bilirubin 12.3 H, Direct Bilirubin 3.4 H, AST 139 H, ALT 66, Alkaline Phosphatase 292 H, Total Protein 8.7 H, Albumin 4.7, Globulin 4.0, Albumin/Globulin Ratio 1.2, Lipase 86, PT 14.2 H, INR 1.30 H, APTT 29, CBC w Diff MAN DIFF ORDERED, RBC 3.04 L, MCV 95.1 H, MCH 33.7 H, MCHC 35.5, RDW 21.3 H, MPV 11.1 H, Segmented Neutrophils 84 H, Band Neutrophils 1, Lymphocytes 8 L, Monocytes 7, Nucleated RBCs 1 H, Platelet Estimate VERIFIED BY SMEAR, Polychromasia 1+, Poikilocytosis 2+, Anisocytosis 2+ , Target Cells FEW, Ovalocytes RARE, Retic Count 4.65 H, Fld Total RBCs Counted 100 Patient seen and evaluated. He has a history of sickle cell and reporting vomiting black material. Rectal exam is negative for occult or gross blood. Blood work was obtained and shows an elevated white blood cell count elevated BUN and creatinine and elevated bilirubin. LFTs are also elevated. Patient was not orthostatic however when evaluating his vital signs and was noted that his oxygen saturation dropped to 85% when standing. He did not become visibly dyspneic. HE was placed on oxygen and maintaining oxygen saturation of 99% We'll check a CTA of the chest and a CT scan of the abdomen and pelvis. Patient was medicated with IV Protonix and multiple IV fluid boluses were ordered. Patient sent to Dr. Jennings pending CT scans and disposition. Initial ED EKG: none Hand-Off Endorsed To: Michaela FLOWERS,Jairon Plasencia Endorsed Time: 105 Pending: CT (Wilfred SCHULTZ,Osito) Diagnostic Imaging: Viewed by Me: CT Scan. Discussed w/RAD: CT Scan. Radiology Impression: PATIENT: SHAYAN PENALOZA PRESENT AGE: 27 PATIENT ACCOUNT NO: [id number] : 90 LOCATION: [facility] ([place] ORDERING PHYSICIAN: Osito SCHULTZ SERVICE DATE: 09/06/17 EXAM TYPE: CAT - CT ABD & PELVIS W IV CONTRAST; CTA CHEST-PULMONARY EMBOLISM EXAMINATIONS: CT PULMONARY EMBOLISM STUDY AND CT ABDOMEN AND PELVIS WITH CONTRAST CLINICAL INFORMATION: Sickle cell disease. Hypoxia. Sickle cell crisis. Abdominal pain. COMPARISON: June 08, 2016. TECHNIQUE: Contiguous helical images of the chest were obtained following the administration of IV contrast. Multiplanar reconstructions were performed. MIPS were obtained and reviewed. Contiguous axial thin section helical images of the abdomen and pelvis were performed following the administration of IV contrast. The data set was reformatted in the coronal and sagittal planes and reviewed on an independent workstation. DLP: 556 mGy-cm. CONTRAST: 95 cc of Optiray 320 were administered without incident. FINDINGS: The heart is enlarged, though stable. There is no pericardial effusion. The great vessels are unremarkable. Specifically, there is no pulmonary arterial filling defect. There is no CT evidence for pulmonary embolism. There are no chest wall masses. Review of lung windows demonstrates that there are neither pleural effusions nor pneumothoraces. There are no consolidations. There is dependent bibasilar atelectasis. There are no pulmonary parenchymal nodules. The liver is of normal size and attenuation without focal lesions nor intrahepatic biliary ductal dilation. The patient is status post cholecystectomy. Surgical clips are identified. The pancreas and adrenal glands are unremarkable. The spleen is not visualized. Both kidneys are of normal size and attenuation without hydronephrosis or nephrolithiasis. Following the administration of IV contrast, prompt symmetric nephrograms are displayed. There is no abdominal free fluid. There is neither mesenteric nor retroperitoneal lymphadenopathy. Normal unopacified loops of small and large bowel are identified. There is no pelvic free fluid. The urinary bladder is unremarkable. There is neither pelvic nor inguinal lymphadenopathy. Bone windows: There is mixed sclerosis within the humeral and femoral heads and both innominate bones indicative of osteonecrosis. IMPRESSION: No CT evidence for pulmonary embolism. No evidence for acute abdominal or pelvic inflammatory or infectious processes. Osseous manifestations of sickle cell disease. 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 <Electronically signed in Other Vendor System> SIGNED BY: Armaan Chopra MD 09/06/17 0154 (Michaela FLOWERS,Jairon Plasencia) Departure Departure Disposition: STILL A PATIENT Condition: Stable Referrals: Jenna Moreno (PCP/Family) Departure Forms: Customer Survey General Discharge Information (Osito Simpson) Departure Clinical Impression Primary Impression: Sickle cell anemia Qualifiers: Sickle-cell associated disorders: with unspecified crisis Qualified Code: D57.00 - Hb-SS disease with crisis, unspecified Secondary Impressions: Myalgia, Vomiting Prescriptions: Current Visit Scripts Pantoprazole Sodium (Protonix) 1 TAB PO DAILY #30 TAB Ref 1 Ondansetron (Zofran Odt) 1 TAB SL TID PRN NAUSEA #10 TAB Comments 09/06/17, 2:47AM... Pt reports feeling better... ct scans benign. no PE. His nausea and vomiting have resolved with supportive measures. Guiac negative from below with stable vitals. He is safe for discharge with close follow up advised. He states that he feels comfortable going home. PA/UNDERGROUND ELECTRICIAN Co-Sign Statement Statement: ED Attending supervision documentation- [x] I saw and evaluated the patient. I have also reviewed all the pertinent lab results and diagnostic results. I agree with the findings and the plan of care as documented in the PA's/UNDERGROUND ELECTRICIAN's documentation. //// as above [] I have reviewed the ED Record and agree with the PA's/UNDERGROUND ELECTRICIAN's documentation. [] Additions or exceptions (if any) to the PAs/UNDERGROUND ELECTRICIAN's note and plan are summarized below: [] (Michaela FLOWERS,Jairon Plasencia) Critical Care Note Critical Care Note Critical Care Time: non-applicable (Osito Simpson)
--- NOTE | 2017-09-06 01:54 | CT SCAN REPORT ---
EXAMINATIONS: CT PULMONARY EMBOLISM STUDY AND CT ABDOMEN AND PELVIS WITH CONTRAST CLINICAL INFORMATION: Sickle cell disease. Hypoxia. Sickle cell crisis. Abdominal pain. COMPARISON: June 08, 2016. TECHNIQUE: Contiguous helical images of the chest were obtained following the administration of IV contrast. Multiplanar reconstructions were performed. MIPS were obtained and reviewed. Contiguous axial thin section helical images of the abdomen and pelvis were performed following the administration of IV contrast. The data set was reformatted in the coronal and sagittal planes and reviewed on an independent workstation. DLP: 556 mGy-cm. CONTRAST: 95 cc of Optiray 320 were administered without incident. FINDINGS: The heart is enlarged, though stable. There is no pericardial effusion. The great vessels are unremarkable. Specifically, there is no pulmonary arterial filling defect. There is no CT evidence for pulmonary embolism. There are no chest wall masses. Review of lung windows demonstrates that there are neither pleural effusions nor pneumothoraces. There are no consolidations. There is dependent bibasilar atelectasis. There are no pulmonary parenchymal nodules. The liver is of normal size and attenuation without focal lesions nor intrahepatic biliary ductal dilation. The patient is status post cholecystectomy. Surgical clips are identified. The pancreas and adrenal glands are unremarkable. The spleen is not visualized. Both kidneys are of normal size and attenuation without hydronephrosis or nephrolithiasis. Following the administration of IV contrast, prompt symmetric nephrograms are displayed. There is no abdominal free fluid. There is neither mesenteric nor retroperitoneal lymphadenopathy. Normal unopacified loops of small and large bowel are identified. There is no pelvic free fluid. The urinary bladder is unremarkable. There is neither pelvic nor inguinal lymphadenopathy. Bone windows: There is mixed sclerosis within the humeral and femoral heads and both innominate bones indicative of osteonecrosis. IMPRESSION: No CT evidence for pulmonary embolism. No evidence for acute abdominal or pelvic inflammatory or infectious processes. Osseous manifestations of sickle cell disease.
[2017-09-06] MEDS ORDERED: ZOFRAN ODT4 M1 SL (02:47)
[2017-09-06] MEDS ORDERED: PROTONIX40 M3 PO (02:47)
== END 2017-09-06 03:12 ==
LOC: ERH 22:13
PROVIDERS: Pediatrics
DX: D57.1 Sickle-cell disease without crisis (principal)
CPT/HCPCS: 74177; 96361; 96374; 96375

== ENCOUNTER 2017-10-19 07:57 | Inpatient (IN) | payer OTHER ==
[~2017-10-19] VITALS: Ht 162.6 cm; Wt 63.5 kg
[~2017-10-19 07:57] MED LIST changes: +PROTONIX40 M3 PO; +ZOFRAN ODT4 M1 SL
--- NOTE | 2017-10-19 08:21 | ED GI/GU/ABDOMINAL COMPLAINT ---
History of Present Illness General Chief Complaint: Abdominal Pain/Flank Pain Stated Complaint: SICKLE CELL PAIN +BACK AND ABDOMEN PAIN Source: patient, old records Exam Limitations: no limitations Vital Signs & Intake/Output Vital Signs & Intake/Output Vital Signs Date Time Temp Pulse Resp B/P B/P Pulse O2 O2 Flow FiO2 Mean Ox Delivery Rate 10/19 1211 98.0 68 18 108/65 99 Room Air 10/19 1018 65 18 121/71 97 Room Air 10/19 0803 98.1 96 20 109/69 92 Room Air Allergies Coded Allergies: aspirin (Mild, GI UPSET 10/19/17) hydromorphone (From DILAUDID) (Mild, HIVES AND NAUSEA 10/19/17) ibuprofen (Mild, GI ISSUES 10/19/17) Reconcile Medications Albuterol Sulfate (Proair Hfa) 90 MCG HFA.AER.AD 2 PUF INH Q4-6 PRN PRN BREATHING PROBLEMS (Reported) Budesonide/Formoterol Fumarate (Symbicort 160-4.5 Mcg Inhaler) 160 MCG-4.5 MCG/ ACTUATION HFA.AER.AD 2 PUF INH BID BREATHING PROBLEMS (Reported) Ergocalciferol (Vitamin D2) (Vitamin D2) 50,000 UNIT CAPSULE 1 CAP PO QW SUPPLEMENT (Reported) Folic Acid 1 MG TABLET 1 TAB PO DAILY SUPPLEMENT (Reported) Lisinopril 5 MG TABLET 1 TAB PO DAILY HEART (Reported) Montelukast Sodium 10 MG TABLET 1 TAB PO DAILY ALLERGIES (Reported) Morphine Sulfate (Morphine Sulfate ER) 30 MG TABLET.ER 1 TAB PO BIDP PRN PAIN (Reported) Morphine Sulfate 15 MG TABLET 1 TAB PO BIDP PRN PAIN (Reported) Ondansetron (Zofran Odt) 4 MG TAB.RAPDIS 1 TAB PO Q6 PRN NAUSEA Ondansetron (Zofran Odt) 4 MG TAB.RAPDIS 1 TAB SL TID PRN NAUSEA Pantoprazole Sodium 40 MG TABLET.DR 1 TAB PO DAILY GI (Reported) Pantoprazole Sodium (Protonix) 40 MG TABLET.DR 1 TAB PO DAILY STOMACH BURNING Triage Note: C/O ABDOMINAL AND "ALL OVER" PAIN X 4 HOURS WITH NAUSEA. PMH: SICKLE CELL ANEMIA. Triage Nurses Notes Reviewed? yes HPI: Patient presents complaining of sickle cell crisis. Patient states the pain started yesterday evening has steadily increased. Patient states the pain is in his abdomen as well as back. The pain is constant and is 10 out of 10. There are no aggravating or mitigating factors. Patient states this is his usual site of sickle pain. He is nauseous but there is no vomiting. There are no fevers or chills. He denies any dysuria. 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 Past History Travel History Traveled to [place] past 21 day No Medical History Any Pertinent Medical History? 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 No Review of Systems Review of Systems Constitutional: Reports: no symptoms. EENTM: Reports: no symptoms. Respiratory: Reports: no symptoms. Cardiovascular: Reports: no symptoms. GI: Reports: see HPI, abdominal pain. Genitourinary: Reports: no symptoms. Musculoskeletal: Reports: see HPI, back pain. Skin: Reports: no symptoms. Neurological/Psychological: Reports: no symptoms. Hematologic/Endocrine: Reports: no symptoms. Immunologic/Allergic: Reports: no symptoms. All Other Systems: Reviewed and Negative Physical Exam Physical Exam General Appearance: well developed/nourished, alert, awake, anxious, moderate distress Head: atraumatic, normal appearance Eyes: Bilateral: PERRL, EOMI. Ears, Nose, Throat, Mouth: hearing grossly normal, DRY MM Neck: normal inspection, supple, full range of motion Respiratory: normal breath sounds, chest non-tender, no respiratory distress, lungs clear Cardiovascular: regular rate/rhythm, normal peripheral pulses Gastrointestinal: normal bowel sounds, soft, non-tender, no organomegaly Back: normal inspection, normal range of motion Extremities: normal range of motion Neurologic/Psych: no motor/sensory deficits, awake, alert, oriented x 3, normal gait, normal mood/affect Skin: intact, normal color, warm/dry Core Measures ACS in differential dx? No Sepsis Present: No Sepsis Focused Exam Completed? No Progress Differential Diagnosis: diverticulitis, gastritis, hepatitis, ischemic bowel, inflamm bowel dis, pancreatitis, SICKLE CRISIS Plan of Care: Orders Procedure Date/time Status Regular Diet 10/19 L Active ED Holding Orders 10/19 1324 Active Admit to inpatient 10/19 1324 Active Vital Signs 10/19 1324 Active Code Status 10/19 1324 Active RETICULOCYTE COUNT 10/19 0822 Complete LIPASE 10/19 0822 Complete COMPREHENSIVE METABOLIC PANEL 10/19 0822 Complete CBC WITHOUT DIFFERENTIAL 10/19 0822 Complete AMYLASE 10/19 0822 Complete Current Medications Sig/Chayo Start time Last Medication Dose Stop Time Status Admin Diphenhydramine HCl 25 MG ONCE ONE 10/19 1330 UNVr (Benadryl) 10/19 1331 Morphine Sulfate 6 MG ONCE ONE 10/19 1330 UNVr (Morphine) 10/19 1331 Sodium Chloride 1,000 ML BOLUS ONE 10/19 133 UNVr (Normal Saline 0.9%) 10/19 1429 Laboratory Tests 10/19/17 0842: Anion Gap 10, Estimated GFR > 60, BUN/Creatinine Ratio 18.3, Glucose 96, Calcium 9.1, Total Bilirubin 5.9 H, AST 72 H, ALT 48, Alkaline Phosphatase 218 H, Total Protein 7.2, Albumin 4.1, Globulin 3.1, Albumin/Globulin Ratio 1.3, Amylase 88, Lipase 214, CBC w Diff MAN DIFF ORDERED, RBC 2.68 L, MCV 99.2 H, MCH 34.4 H, MCHC 34.7, RDW 24.2 H, MPV 10.6 H, Gran % 68.3, Lymphocytes % 15.5 L, Monocytes % 14.3 H, Eosinophils % 1.9, Basophils % 0, Absolute Granulocytes 6.8 H, Segmented Neutrophils 52, Band Neutrophils 2, Absolute Lymphocytes 1.5, Lymphocytes 20 L, Monocytes 19 H, Absolute Monocytes 1.4 H, Eosinophils 6 H, Absolute Eosinophils 0.2, Basophils 1, Absolute Basophils 0, Nucleated RBCs 23 H, Polychromasia 2+, Hypochromic-Microcytic 2+, Target Cells 1+, Ovalocytes 2+, Retic Count 12.68 H Initial ED EKG: none Departure Departure Disposition: STILL A PATIENT Condition: Stable Clinical Impression Primary Impression: Sickle cell crisis Referrals: Patient Has No Primary Care Dr (PCP/Family) Departure Forms: Customer Survey General Discharge Information Admission Note Spoke With: Armaan Robert MD Documentation of Exam: Documentation of any treatments & extenuating circumstances including Concerns Regarding Discharge (functional status, medication knowledge or non-compliance, living conditions, etc.) that warrant an admission rather than observation: [IV fluids, IV pain control, hematology consultation]
[2017-10-19 08:58] LABS: ABSOLUTE BASOPHIL COUNT 0 /CUMM (0.0-0.2); ABSOLUTE EOSINOPHIL COUNT 0.2 /CUMM (0.0-0.7); ABSOLUTE GRANULOCYTE CT 6.8 /CUMM (1.4-6.5); ABSOLUTE LYMPH COUNT 1.5 /CUMM (1.2-3.4); ABSOLUTE MONOCYTE COUNT 1.4 /CUMM (0.10-0.60); BASOPHIL % 0 % (0.0-2.0); EOSINOPHIL % 1.9 % (0-5); GRANULOCYTE % 68.3 % (42.2-75.2); HEMATOCRIT 26.5 % (42-52); MEAN CORPUSCULAR HGB 34.4 PG (27.0-31.0); MEAN CORPUSCULAR HGB CONC 34.7 G/DL (33.0-37.0); MEAN CORPUSCULAR VOLUME 99.2 FL (80.0-94.0); MEAN PLATELET VOLUME 10.6 FL (7.4-10.4); RBC DISTRIBUTION WIDTH 24.2 % (11.5-14.5); RED BLOOD CELL CT 2.68 /CUMM (4.70-6.10); WHITE BLOOD CELL COUNT 9.9 /CUMM (4.8-10.8)
[2017-10-19 09:43] LABS: PLATELET COUNT 235 /CUMM (130-400)
[2017-10-19] MEDS ORDERED: HYDROXYUREA500 M1 PO (13:38)
--- NOTE | 2017-10-19 13:39 | History & Physical ---
Daniel FLOWERS,[facility] 10/19/17 1338: General Information and HPI MD Statement: I have seen and personally examined SHAYAN PENALOZA and documented this H&P. The patient is a 27 year old M who presented with a patient stated chief complaint of [abdominal pain]. Source of Information: patient History of Present Illness: 27-year-old gentleman with past medical history of hypertension, stroke, cognitive impairment, GI bleed, sickle cell anemia, asthma came to [place] ER with complaints of abdominal, bilateral lower extremity, low back pain of 8 x 10 in severity. According to the patient he was in usual state of health until this morning following which he started having 8-10 pain with no radiation or relieving factors. Patient tried to take morphine which didn't help much. He denies chest pain, shortness of breath, nausea, vomiting, abdominal pain, headache, vision changes, bloody urine, myalgia, altered sensation, weakness, palpitations. Blood transfusion-he says he got more than 1 blood transfusion Patient says whenever he gets this kind of pain he brings himself to the hospital in view of sickle cell crisis. Patient also mentioned that he gets better with IV fluids and oxygen. The last sickle cell crisis was 2 weeks ago for which the patient was admitted at [facility] for a week. Patient follows with a logistics service representative at [facility]. At baseline he ambulates well and lives on disability. Patient's mother is a carrier and has 5 brothers and 7 sisters none of them diagnosed with sickle cell anemia. We will try to get records from [facility] and also from his logistics service representative. Allergies/Medications Allergies: Coded Allergies: aspirin (Mild, GI UPSET 10/19/17) hydromorphone (From DILAUDID) (Mild, HIVES AND NAUSEA 10/19/17) ibuprofen (Mild, GI ISSUES 10/19/17) Home Med list Hydroxyurea 500 MG CAPSULE 2 PO BID sickle cell anemia (Reported) Lisinopril 20 MG TABLET 1 TAB PO DAILY htn (Reported) Morphine Sulfate (Morphine Sulfate ER) 30 MG TABLET.ER 1 TAB PO BIDP PRN PAIN (Reported) Ondansetron (Zofran Odt) 4 MG TAB.RAPDIS 1 TAB SL TID PRN NAUSEA Pantoprazole Sodium (Protonix) 40 MG TABLET.DR 1 TAB PO DAILY STOMACH BURNING Past History Travel History Traveled to [place] past 21 day No Medical History Neurological: STROKE HX EENT: NONE Cardiovascular: hypertension Respiratory: asthma Gastrointestinal: GI BLEED HX Hepatic: NONE Renal: NONE Musculoskeletal: NONE Psychiatric: depression Endocrine: hypothyroidism Blood Disorders: SICKLE CELL ANEMIA Cancer(s): NONE RADIOLOGIC TECHNOLOGY INSTRUCTOR/Reproductive: NONE Surgical History Surgical History: non-contributory Past Family/Social History Family History Relations & Conditions if any MOTHER (sickle cell carrier). Psychosocial History Where do you live? Home Who Do You Live With? self Services at Home: None Primary Language: Faroese Smoking Status: Never Smoked ETOH Use: denies use Illicit Drug Use: denies illicit drug use Functional Ability ADLs Independent: dressing, eating, toileting, bathing. Ambulation: independent IADLs Independent: shopping, housework, finances, food prep, telephone, transportation , medication admin. Review of Systems Review of Systems Constitutional: Reports: no symptoms, see HPI. Exam & Diagnostic Data Last 24 Hrs of Vital Signs/I&O Vital Signs Date Time Temp Pulse Resp B/P B/P Pulse O2 O2 Flow FiO2 Mean Ox Delivery Rate 10/19 1346 98.0 66 18 107/63 99 Nasal 2.0L Cannula 10/19 1211 98.0 68 18 108/65 99 Room Air 10/19 1018 65 18 121/71 97 Room Air 10/19 0803 98.1 96 20 109/69 92 Room Air Intake & Output 10/19 1600 10/19 0800 10/19 0000 Intake Total 2000 Output Total Balance 2000 Intake, IV 2000 Patient 140 lb Weight Weight Reported by Patient Measurement Method Physical Exam General Appearance Alert, Oriented X3, Cooperative, No Acute Distress Cardiovascular Regular Rate, Normal S1, Normal S2, No Murmurs Lungs Clear to Auscultation Abdomen Soft, No Tenderness, No Hepatospenomegaly Neurological Normal Speech, Strength at 5/5 X4 Ext, Normal Tone Extremities No Edema Last 24 Hrs of Labs/Joshua: Laboratory Tests 10/19/17 0842: Anion Gap 10, Estimated GFR > 60, BUN/Creatinine Ratio 18.3, Glucose 96, Calcium 9.1, Total Bilirubin 5.9 H, Direct Bilirubin 1.6 H, AST 72 H, ALT 48, Alkaline Phosphatase 218 H, Total Protein 7.2, Albumin 4.1, Globulin 3.1, Albumin/Globulin Ratio 1.3, Amylase 88, Lipase 214, CBC w Diff MAN DIFF ORDERED, RBC 2.68 L, MCV 99.2 H, MCH 34.4 H, MCHC 34.7, RDW 24.2 H, MPV 10.6 H, Gran % 68.3, Lymphocytes % 15.5 L, Monocytes % 14.3 H, Eosinophils % 1.9, Basophils % 0, Absolute Granulocytes 6.8 H, Segmented Neutrophils 52, Band Neutrophils 2, Absolute Lymphocytes 1.5, Lymphocytes 20 L, Monocytes 19 H, Absolute Monocytes 1.4 H, Eosinophils 6 H, Absolute Eosinophils 0.2, Basophils 1, Absolute Basophils 0, Nucleated RBCs 23 H, Polychromasia 2+, Hypochromic-Microcytic 2+, Target Cells 1+, Ovalocytes 2+, Retic Count 12.68 H Assessment/Plan Assessment: A 7-year-old -Macanese with past medical history of sickle cell anemia, hypertension, GI bleed, asthma came to [place] ER with complaints of abdominal, bilateral lower extremity, lower back pain of 8 x 10 in severity. Admission labs WBC 9.9, hemoglobin 9.2, platelet 235, sodium 140, total bilirubin 5.9, direct bilirubin 1.6, AST 72, ALT 40, alkaline phosphatase 218, Admission vitals Pulse rate 65, blood pressure 121/71, saturating 97 ON 2 L of oxygen. Assessment and plan 1. Sickle cell hyfyad-gdbt-mtlcomyws painful crisis 2. Transaminitis * Admitted in [facility] med. * Oxygen, IV fluids * Pain meds-patient is on morphine ER 30 twice a day at home this has been prescribed by his logistics service representative at [facility]. Patient's pain medication needs to be confirmed from [facility]. Need to get records of his previous hospital from [facility]. For now will continue on morphine 30 twice a day. * Patient hemoglobin is 9.2 over 26.5 with a platelet count of 235, no thrombocytopenia. Patient has reticulocytosis. Patient's anemia looks like chronic hemolytic picture. We will send serum LDH and haptoglobin level. * Transaminitis patient's T bilirubin in August was 12.3. Today his T bilirubin is 5.9. This can be secondary due to hepatobiliary sequestration crisis/ ischemia /cholestasis. We will repeat LFT tomorrow and take an ultrasound right upper quadrant to rule out hepatobiliary pathology. * Asthma-stable patient is on Symbicort and albuterol inhaler. Patient also uses nebuliser at home. Code-full code Diet-regular diet DVT prophylaxis-Lovenox As Ranked By This Provider Problem List: 1. Sickle cell pain crisis Core Measures/Misc (02/16) Acute Coronary Syndrome ACS Diagnosis: No Congestive Heart Failure Congestive Heart Failure Diagnosis No Cerebrovascular Accident CVA/TIA Diagnosis: No VTE (View Protocol) VTE Risk Factors Age>40 No Mechanical VTE Prophylaxis d/t Other No VTE Pharm Prophylaxis d/t Other Sepsis (View protocol) Sepsis Present: No Janet Vincent 10/19/17 1600: Resident Review Statement Resident Statement: examined this patient, discussed with planner intern Other Findings: Patient is a 27-year-old in with a with a past medical history significant for sickle cell anemia with crisis, hospitalized multiple times requiring IV narcotics, history of pigment cholelithiasis status post cholecystectomy history of history of asthma, hypertension presented to the ED for the evaluation of severe generalized pain. Patient was recently discharged from the [facility] after being treated for sickle cell crisis, hospitalized for a week. He was doing okay until this morning when he started having severe 8/10 pain involving abdomen, lower back, bilateral lower and upper extremities, took his usual pain medications including extended release morphine sulfate and short-acting morphine without much improvement in his symptoms and came to the ER for further help. Denied any recent fever or chills, chest discomfort, breathing palpitations. Reported nausea without any vomiting. No urinary complaints. Patient follows up with logistics service representative at sickle cell clinic, doesn't smoke doesn' t drink any alcohol. Does not get any any history of sickle cell and his siblings however mentioned that his mother was a carrier of sickle cell disease. Vitals on admission blood pressure 121/71 surgery are 97% on 2 L, pulse 65 respiratory rate Pertinent labs on admission No evidence of leukocytosis H&H low but stable with a platelet count 235 sodium 140, elevated total bilirubin to 5.9 with direct bilirubin 1.6 and ALP 218,AST 72, ALT 40. 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 * Continue oxygen to saturations above 92% along with aggressive IV hydration * Continue long-acting morphine sulfate 30 mg twice a day, start morphine IV 4 mg every 4 hours for severe pain and oxycodone for moderate pain. * Will call patient's logistics service representative tomorrow and get the records. * Watch for any hemodynamic instability. Hyperbilirubinemia with slight transaminitis-hepatobiliary sequestration crisis/ cholestasis * Total bilirubin was 12.3 in August, bilirubin today is 5.9. * We will obtain abdominal ultrasound to rule out any biliary pathology * Will continue to watch repeat LFTs and total bilirubin tomorrow. History of chronic hemolytic anemia-due to sickle cell disease * H&H is stable * Pending haptoglobin LDH results History of asthma * [facility] nebs * Patient takes medication from [facility] pharmacy currently closed will call the pharmacy tomorrow and perform all the medications. \ History of opiate dependence * Continue home dose of morphine sulfate. DVT prophylaxis with subcutaneous Lovenox Severe pain control with IV morphine Patient is full code Armaan Robert MD 10/19/17 3397: Attending MD Review Statement Attending Statement Attending MD Statement: examined this patient, discuss w/resident/PA/MOTHER'S HELPER, agreed w/resident/PA/MOTHER'S HELPER, reviewed EMR data (avail), amended to note Attending Assessment/Plan: The patient is a 27 yo male with h/o HTN, asthma, and sickle cell anemia and multiple prior admissions for crisis (in [place]- last within 1 month- 1 week stay) who presented in the [place] ED with c/o abdominal pain and diffuse bone/ body pain similar to his prior crises. He is s/p cholecystectomy 1 year ago. He requests morphine for pain. He is followed in clinic at [facility] and is on chronic po morphine as well. Physical Exam: VS: T 98.1, P 96, R 20, BP 109/69, PO 97% RA HEENT: eyes- PERRLA, EOMI tasneem- moist mucosa w/o lesions Neck: supple Chest: clear Cor: RRR nl S1, S2 w/o murm Abd: BS+, soft, + mild diffuse tender w/o guarding or rebound Ext: no edema Neuro: alert & oriented, non-focal exam Labs/Tests- as above Impression/Plan: #Sickle Cell Crisis- body pain/bone pain and abdominal pain. Had recent admit to [place] for same. He is requiring significant amounts of morphine IV for relief. Note his HR and BP are not increased in spite of pain. Has elevated LDH. Plan: Admit to medical floor. Aggressive IV hydration and nasal oxygen as per sickle cell protocol Follow symptoms. Will contact his clinic MD's at [place] tomorrow. Will check CTPMP & urine tox screen. #Abdominal Pain - mildly elated bilirubin and liver enzymes. He did have prior cholecystectomy 1 year ago. Cannot exclude biliary duct stones. Plan: Agree with US. Would check GGT and follow-up LFT's. #Anemia- c/w known sickle cell. Plan: Will follow- up CBC. #Asthma- on inhalers. Lungs clear at present. Plan: Continue inhalers. #HTN- BP as above. Plan: Will continue Lisinopril.
[2017-10-19 15:52] VITALS: BP 98/60
--- NOTE | 2017-10-19 18:11 | Patient Discharge Instructions ---
Discharge Instructions General Discharge Information You were seen/treated for: Sickle cell crisis Watch for these problems: In case of nausea, vomiting, abdominal pain, chest pain please go to nearest emergency room Special Instructions: Please follow-up with your primary care provider/work from home/digital asset specialist within 1-2 weeks of discharge and let them know about your recent admission at [facility]. You might need Cardiac MRI, please follow up with digital asset specialist Diet Continue normal diet: Yes Activity Full Activity/No Limits: No Activity Self Limited: Yes Acute Coronary Syndrome Inclusion Criteria At DC or during hospital stay patient has or had the following: ACS DIAGNOSIS No Discharge Core Measures Meds if any: Prescribed or Continued at Discharge Meds if any: NOT Prescribed or Continued at Discharge Congestive Heart Failure Inclusion Criteria At DC or during hospital stay patient has or had the following: CHF DIAGNOSIS No Discharge Core Measures Meds if any: Prescribed or Continued at Discharge Meds if any: NOT Prescribed or Continued at Discharge Cerebrovascular accident Inclusion Criteria At DC or during hospital stay patient has or had the following: CVA/TIA Diagnosis No Discharge Core Measures Meds if any: Prescribed or Continued at Discharge Meds if any: NOT Prescribed or Continued at Discharge Venous thromboembolism Inclusion Criteria VTE Diagnosis No VTE Type NONE VTE Confirmed by (Test) NONE Discharge Core Measures - Per Current guidelines, there needs to be overlap - treatment for the first 5 days of Warfarin therapy. - If discharged on Warfarin prior to 5 days of - overlap therapy, the patient will need to be - assessed for post discharge needs including - *Post discharge parental anticoagulation - *Warfarin and/or parental anticoagulation education - *Follow up date to check INR post discharge At least 5 days overlap therapy as Inpatient No Meds if any: Prescribed or Continued at Discharge Note: Overlap Therapy is Warfarin and Anticoagulant Meds if any: NOT Prescribed or Continued at Discharge
--- NOTE | 2017-10-19 18:18 | Discharge Summary ---
Visit Information Visit Dates Admission Date: 10/19/17 Discharge Date: 10/24/17 Hospital Course Course Attending Physician: Erinn Buckley MD Primary Care Physician: Patient Has No Primary Care Dr Hospital Course: 27-year-old gentleman with past medical history of hypertension, stroke, cognitive impairment, GI bleed, sickle cell anemia, asthma came to [facility] with complaints of abdominal, bilateral lower extremity, low back pain of 8 x 10 in severity. According to the patient he was in usual state of health until the morning of admission following which he started having 8-10 pain with no radiation or relieving factors. Patient tried to take morphine which didn't help much. He denies chest pain, shortness of breath, nausea, vomiting, abdominal pain, headache, vision changes, bloody urine, myalgia, altered sensation, weakness, palpitations. Blood transfusion-he says he got more than 1 blood transfusion Patient says whenever he gets this kind of pain he brings himself to the hospital in view of sickle cell crisis. Patient also mentioned that he gets better with IV fluids and oxygen. The last sickle cell crisis was 2 weeks ago for which the patient was admitted at [facility] for a week. Patient follows with a track repair laborer at [facility]. At baseline he ambulates well and lives on disability. Patient's mother is a carrier and has 5 brothers and 7 sisters none of them diagnosed with sickle cell anemia. Hospital course Patient admitted for sickle cell pain treated with IV fluids, morphine and oxygen. At baseline patient is on 2 L of oxygen at home. Patient pain improved and he was started back on his hydroxyurea during the hospital course. Patient had a CAT scan of the chest for his shortness of breath, pulmonary embolism ruled out but CAT scan showed dense consolidation and multifocal irregular not opacities in the right upper lobe with features consistent of pneumonia. Hence patient was treated for pneumonia with IV ceftriaxone. Patient was seen by audio/visual operator for his cardiomegaly noted on CAT scan. Field Servicer reviewed his old records, and he had a history of dilated left ventricle and left atria which was followed by his audio/visual operator as outpatient. Off note patient had an echocardiogram done less than 30 days ago. At this point there was no need to repeat an echocardiogram. Field Servicer, Advised to continue current management with outpatient cardiology follow-up and possibly cardiac MRI in future. Patient was also seen by track repair laborer who advised to continue the current management treat his infection, IV hydration and outpatient follow-up with his track repair laborer. Patient was sent home with referable to his primary care provider, track repair laborer, audio/visual operator. Allergies: Coded Allergies: aspirin (Mild, GI UPSET 10/19/17) hydromorphone (From DILAUDID) (Mild, HIVES AND NAUSEA 10/19/17) ibuprofen (Mild, GI ISSUES 10/19/17) Pertinent Lab Results: Ultrasound abdomen IMPRESSION: Normal exam. CTA 1. No evidence of pulmonary embolism. 2. Dense consolidation and multifocal irregular nodular opacities and groundglass opacities in the right upper lobe. Findings are most consistent with multifocal pneumonia. Associated reactive adenopathy is seen in the right hilum and azygous esophageal recess. Pulmonary infarct/pulmonary hemorrhage is felt to be much less likely as no abnormal filling defect is seen within the pulmonary arteries with the right upper lobe. Close clinical correlation and follow-up CT scan is recommended for reassessment. 3. Markedly enlarged heart, suspicious for a dilated cardiomyopathy. Associated small pericardial effusion is seen. 4. Status post cholecystectomy. 5. 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 6. 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 Chest x-ray Small right pleural effusion with right lower lung airspace opacity which may represent pneumonia. Mild prominence of the cardiac silhouette. This is similar to previous CT. Disposition Summary Disposition Principal Diagnosis: sickle cell pain crisis Additional Diagnosis: pneumonia Discharge Disposition: home or self care Discharge Instructions General Discharge Information Code Status: Full Code Patient's Diet: regular diet Patient's Activity: as tolerated Follow-Up Instructions/Appts: Please follow-up with your primary care provider/track repair laborer/audio/visual operator within 1-2 weeks of discharge and let them know about your recent admission at [facility]. Medications at Discharge Discharge Medications: Continue taking these medications: Morphine Sulfate (Morphine Sulfate ER) 30 MG TABLET.ER 1 Tablet ORAL 2 x Daily as needed as needed for PAIN Qty = 6 Comments: LAST GIVEN 10/24/17 @ 0900 Pantoprazole Sodium (Protonix) 40 MG TABLET.DR 1 Tablet ORAL DAILY Qty = 30 Ondansetron (Zofran Odt) 4 MG TAB.RAPDIS 1 Tablet SUBLINGUAL THREE TIMES DAILY as needed for NAUSEA Qty = 10 Hydroxyurea (Hydroxyurea) 500 MG CAPSULE 2 ORAL TWICE DAILY Qty = 60 Comments: LAST GIVEN 10/14/17 @ 0900 Lisinopril (Lisinopril) 20 MG TABLET 1 Tablet ORAL DAILY Start taking the following new medications: Morphine Sulfate (Morphine Sulfate) 15 MG TABLET 15 Milligram ORAL THREE TIMES DAILY Qty = 12 No Refills Instructions: . Comments: LAST GIVEN 10/24/17 @ 1315 Amoxicillin/Clavulanate Potass (Amox-Clav 875-125 MG Tablet) 875 MG-125 MG TABLET 875 Milligram ORAL EVERY 12 HOURS Qty = 7 No Refills Instructions: . Comments: LAST GIVEN 10/24/17 @ 0900 Folic Acid (Folic Acid) 1 MG TABLET 1 Milligram ORAL DAILY Qty = 30 Refills = 1 Comments: LAST GIVEN 10/24/17 @ 0900 Copies To: elena Freed; abdiel sims
[2017-10-19 21:57] VITALS: BP 116/62
--- NOTE | 2017-10-19 23:09 | Admission Certification ---
Admission Certification Certification Statement - As attending physician, I certify that at the time of - admission, based on clinical presentation, severity of - symptoms, need for further diagnostic testing and - therapeutic interventions, and risk of adverse outcomes - without in-hospital treatment, in my clinical assessment, - this patient requires an acute hospital stay for a minimum - of two nights or longer. I have also considered psychsocial - factors such as support system, advanced age, financial - issues, cognitive issues, and failed out-patient treatments, - past re-admission history, safety of patient, and lack of - compliance as applicable. Specific rationale supporting this admission is: The patient presents with acute sickle cell crisis with severe bone and abdominal pain requiring IV analgesia (morphine). Will admit for hydration, IV narcotic analgesia, nasal oxygen. Follow LFT"s. CBC.
[2017-10-20 06:31] VITALS: BP 111/72
--- NOTE | 2017-10-20 06:46 | PN- Housestaff ---
Daniel FLOWERS,[place] 10/20/17 0646: Subjective Follow-up For: Sickle cell crisis Subjective: Patient seen and examined at bedside. He is lying in his bed comfortably. Complains of 8 x 10 in his lower extremity, arms, lower back. He denies shortness of breath, chest pain, abdominal pain. Review of Systems Constitutional: Reports: no symptoms, see HPI. Objective Last 24 Hrs of Vital Signs/I&O Vital Signs Date Time Temp Pulse Resp B/P B/P Pulse O2 O2 Flow FiO2 Mean Ox Delivery Rate 10/20 0631 97.9 60 18 111/72 100 Nasal 2.0L Cannula 10/20 0000 96 Nasal 2.0L Cannula 10/19 2157 98.1 52 20 116/62 98 Nasal 2.0L Cannula 10/19 1845 Nasal 2.0L Cannula 10/19 1552 Nasal 2.0L Cannula 10/19 1552 98.4 52 18 98/60 98 Nasal 2.0L Cannula 10/19 1346 98.0 66 18 107/63 99 Nasal 2.0L Cannula Intake & Output 10/20 1600 10/20 0800 10/20 0000 Intake Total 1120 150 Output Total 500 600 Balance 620 -450 Intake, IV 1000 Intake, Oral 120 150 Output, Urine 500 600 Patient 140 lb Weight Weight Reported by Patient Measurement Method Physical Exam General Appearance: Alert, Oriented X3, Cooperative, No Acute Distress Cardiovascular: Regular Rate, Normal S1, Normal S2, No Murmurs Lungs: Normal Air Movement Abdomen: Soft, No Tenderness, No Hepatospenomegaly Neurological: Normal Speech, Strength at 5/5 X4 Ext, Normal Tone, Sensation Intact Current Medications: Current Medications Sig/Chayo Start time Last Medication Dose Route Stop Time Status Admin Acetaminophen 1,000 MG Q6P PRN 10/19 1545 AC 10/19 N/A 1 UNIT IV 1606 Albuterol Sulfate 2 PUF Q4P PRN 10/19 1900 AC INH Budesonide/ 2 PUF BID 10/19 2330 AC 10/20 Formoterol Fumarate INH 0857 Diphenhydramine HCl 0 .STK-MED ONE 10/19 1350 DC .ROUTE Diphenhydramine HCl 25 MG ONCE ONE 10/19 1330 DC 10/19 IV 10/19 1331 1353 Folic Acid 1 MG DAILY 10/20 0900 AC 10/20 PO 0856 Morphine Sulfate 30 MG BID 10/19 2100 AC 10/20 PO 0856 Morphine Sulfate 4 MG Q4P PRN 10/19 1545 AC 10/20 IV 1038 Morphine Sulfate 30 MG .[BIDP] PRN 10/19 1545 DC PO Morphine Sulfate 0 .STK-MED ONE 10/19 1350 DC .ROUTE Morphine Sulfate 6 MG ONCE ONE 10/19 1330 DC 10/19 IV 10/19 1331 1353 Omeprazole 40 MG DAILY AC 10/20 0700 AC 10/20 PO 0545 Ondansetron HCl 4 MG Q8P PRN 10/19 1345 AC IV Sodium Chloride 1,000 ML Q8H 10/19 1545 AC 10/20 IV 0856 Sodium Chloride 1,000 ML BOLUS ONE 10/19 1330 DC 10/19 IV 10/19 1429 1353 Last 24 Hrs of Lab/Joshua Results Last 24 Hrs of Labs/Mics: Laboratory Tests 10/20/17 0858: CBC w Diff MAN DIFF ORDERED, RBC 2.67 L, MCV 100.4 H, MCH 35.0 H, MCHC 34.8, RDW 23.5 H, MPV 10.9 H, Gran % 67.3, Lymphocytes % 12.1 L, Monocytes % 13.9 H, Eosinophils % 4.3, Basophils % 2.4 H, Absolute Granulocytes 10.2 H, Segmented Neutrophils 65, Absolute Lymphocytes 1.8, Lymphocytes 15 L, Monocytes 14 H, Absolute Monocytes 2.1 H, Eosinophils 4, Absolute Eosinophils 0.6, Basophils 2, Absolute Basophils 0.4, Nucleated RBCs 6 H, Platelet Estimate VERIFIED BY SMEAR, Polychromasia 1+, Poikilocytosis 2+, Anisocytosis 2+, Macrocytic Cells 1+, Target Cells 1+ 10/20/17 0300: Urine Opiates Screen > 4000.00 H, Methadone Screen 43, Barbiturate Screen < 60, Ur Phencyclidine Scrn < 6.00, Amphetamines Screen < 100, U Benzodiazepines Scrn < 85, Urine Cocaine Screen < 50, Urine Cannabis Screen < 5.00 Assessment/Plan Assessment: 27-year-old -[place]yp[place] with past medical history of sickle cell anemia, stroke, cognitive impairment, hypertension, GI bleed, asthma came to [place] [facility] with complaints of abdominal, bilateral lower extremity, lower back pain of 8 x 10 in severity. Assessment and plan 1. Sickle cell jvsegg-zocc-hpszteprn painful crisis 2. Transaminitis * Patient is currently managed with IV fluids, oxygen, pain medications * Pain meds-patient is on morphine ER 30 twice a day at home this has been prescribed by his cell liner at [facility]. Patient's pain medication needs to be confirmed from [facility]. We have requested records from [facility]. We will resume his hydroxyurea from today. * Patient hemoglobin is 9.2 over 26.5 with a platelet count of 235, no thrombocytopenia. Patient has reticulocytosis and high LDH giving the chronic hemolytic picture. Pending haptoglobin level. * Transaminitis patient's T bilirubin in August was 12.3. Today his T bilirubin is 5.9. This can be secondary due to hepatobiliary sequestration crisis/ ischemia /cholestasis. We will repeat LFT tomorrow and take an ultrasound right upper quadrant to rule out hepatobiliary pathology. * Asthma-stable patient is on Symbicort and albuterol inhaler. Patient also uses nebuliser at home. Code-full code Diet-regular diet DVT prophylaxis-Lovenox Problem List: 1. Sickle cell pain crisis Pain Ratin Pain Location: none Pain Goal: Remain pain free Pain Plan: Morphine Tomorrow's Labs & Rationales: cbc,bep Marcio FLOWERS,[place] 10/20/17 1337: Attending MD Review Statement Attending Statement Attending MD Statement: examined this patient, discuss w/resident/PA/MAGNETIC TAPE COMPOSER OPERATOR, agreed w/resident/PA/MAGNETIC TAPE COMPOSER OPERATOR, reviewed EMR data (avail), discussed with nursing, discussed with case mgmt, reviewed images, amended to note Attending Assessment/Plan: Patient seen and examined, still complaining of excruciating pain mainly in his back and his abdomen. He does not complain of any shortness of breath. Patient currently getting treated with pain management, oxygen and IV fluids. Did notice increase in his WBC count today. Vital Signs Date Time Temp Pulse Resp B/P B/P Pulse O2 O2 Flow FiO2 Mean Ox Delivery Rate 10/20 0631 97.9 60 18 111/72 100 Nasal 2.0L Cannula 10/20 0000 96 Nasal 2.0L Cannula 10/19 2157 98.1 52 20 116/62 98 Nasal 2.0L Cannula 10/19 1845 Nasal 2.0L Cannula 10/19 1552 Nasal 2.0L Cannula 10/19 1552 98.4 52 18 98/60 98 Nasal 2.0L Cannula 10/19 1346 98.0 66 18 107/63 99 Nasal 2.0L Cannula on exam; aox3, nad. cv; s1,s2, rrr resp; clear. abd; soft, nt, bs+ ext: no edema Laboratory Tests 10/20 10/20 0858 0300 Hematology CBC w Diff MAN DIFF ORDERED WBC (4.8 - 10.8 /CUMM) 16.9 H RBC (4.70 - 6.10 /CUMM) 2.67 L Hgb (14.0 - 18.0 G/DL) 9.3 L Hct (42 - 52 %) 26.8 L MCV (80.0 - 94.0 FL) 100.4 H MCH (27.0 - 31.0 PG) 35.0 H MCHC (33.0 - 37.0 G/DL) 34.8 RDW (11.5 - 14.5 %) 23.5 H Plt Count (130 - 400 /CUMM) 245 MPV (7.4 - 10.4 FL) 10.9 H Gran % (42.2 - 75.2 %) 67.3 Lymphocytes % (20.5 - 51.1 %) 12.1 L Monocytes % (1.7 - 9.3 %) 13.9 H Eosinophils % (0 - 5 %) 4.3 Basophils % (0.0 - 2.0 %) 2.4 H Absolute Granulocytes (1.4 - 6.5 /CUMM) 10.2 H Segmented Neutrophils (42.2 - 75.2 %) 65 Absolute Lymphocytes (1.2 - 3.4 /CUMM) 1.8 Lymphocytes (20.5 - 51.1 %) 15 L Monocytes (1.7 - 9.3 %) 14 H Absolute Monocytes (0.10 - 0.60 /CUMM) 2.1 H Eosinophils (0 - 5.0 %) 4 Absolute Eosinophils (0.0 - 0.7 /CUMM) 0.6 Basophils (0.0 - 2.0 %) 2 Absolute Basophils (0.0 - 0.2 /CUMM) 0.4 Nucleated RBCs (0.0 - 0.0 /100WBC) 6 H Platelet Estimate (ADEQUATE) VERIFIED BY SMEAR Polychromasia 1+ Poikilocytosis 2+ Anisocytosis 2+ Macrocytic Cells 1+ Target Cells 1+ Toxicology Urine Opiates Screen (>2000 NG/ML) > 4000.00 H Methadone Screen (>300 NG/ML) 43 Barbiturate Screen (>200 NG/ML) < 60 Ur Phencyclidine Scrn (>25 NG/ML) < 6.00 Amphetamines Screen (>1000 NG/ML) < 100 U Benzodiazepines Scrn (>200 NG/ML) < 85 Urine Cocaine Screen (>300 NG/ML) < 50 Urine Cannabis Screen (>50 NG/ML) < 5.00 A/P; 27 y/o M with pmh sig for hypertension, GI bleed, sickle cell anemia, asthma admitted with generalized pain specially in his back and his abdomen as well as acute sickle cell crisis. Patient currently getting morphine. Will continue the morphine. Patient on oral and IV morphine. He is also getting IV fluids and oxygen. Will continue both. Also noted rise in bilirubin as well as LDH. Patient also has a rise in his white blood cell count today. We'll check a urinalysis, urine culture, blood cultures and chest x-ray. We'll also consult hematology. Continue the rest of the meds. DCT px; ALPS.
--- NOTE | 2017-10-20 08:29 | PN- Student ---
Subjective Subjective: Today- No acute events overnight. Patient restin in bed. Complains of pain in his back, knee, abdomen. Denied headache, palpitation. HPI: 27-year-old gentleman with came to [place] ER with CC of abdominal pain, bilateral lower extremity pain, and low back pain of 8/10 in severity. Patient was recently discharge, about two weeks agos from [facility] due to similar complains. Patient do take morphine at home which he tried to take but didn't help. At that time he denied chest pain, shortness of breath, nausea, vomiting, headache, vision changes, bloody urine, myalgia, altered sensation, weakness, palpitations. PMHx: HTN, GI bleed, sickle cell anemia, stroke (2013-Patient was at his school when he developed symptoms and was sent to [facility]. He can't remember what was the management during that time), cognitive impairment, asthma PSHx: Chelecystectomy, hernia repair, tonsillectomy and adenoidectomy (2006) FHx: Patient's mother is a carrier and has 5 brothers and 7 sisters none of them diagnosed with sickle cell anemia. Objective Objective: PE: General: alert and oriented without any distress HEENT: NCAT, anicteric sclera, moist oral mucosa, no exudates CVS: Normal S1 and S2, reular rate and rythm Lungs: symetrical chest expansion, clear breath sounds, no added sound Abdomen: presented bowel sounds, soft, nontender, nondistended, no hepatosplenomegaly Extremities: palpable pulses, no edema Results Results: Laboratory Tests 10/20/17 0858: CBC w Diff MAN DIFF ORDERED, RBC 2.67 L, MCV 100.4 H, MCH 35.0 H, MCHC 34.8, RDW 23.5 H, MPV 10.9 H, Gran % 67.3, Lymphocytes % 12.1 L, Monocytes % 13.9 H, Eosinophils % 4.3, Basophils % 2.4 H, Absolute Granulocytes 10.2 H, Segmented Neutrophils 65, Absolute Lymphocytes 1.8, Lymphocytes 15 L, Monocytes 14 H, Absolute Monocytes 2.1 H, Eosinophils 4, Absolute Eosinophils 0.6, Basophils 2, Absolute Basophils 0.4, Nucleated RBCs 6 H, Platelet Estimate VERIFIED BY SMEAR, Polychromasia 1+, Poikilocytosis 2+, Anisocytosis 2+, Macrocytic Cells 1+, Target Cells 1+ 10/20/17 0300: Urine Opiates Screen > 4000.00 H, Methadone Screen 43, Barbiturate Screen < 60, Ur Phencyclidine Scrn < 6.00, Amphetamines Screen < 100, U Benzodiazepines Scrn < 85, Urine Cocaine Screen < 50, Urine Cannabis Screen < 5.00 Vital Signs Date Time Temp Pulse Resp B/P B/P Pulse O2 O2 Flow FiO2 Mean Ox Delivery Rate 10/20 0631 97.9 60 18 111/72 100 Nasal 2.0L Cannula 10/20 0000 96 Nasal 2.0L Cannula 10/19 2157 98.1 52 20 116/62 98 Nasal 2.0L Cannula 10/19 1845 Nasal 2.0L Cannula 10/19 1552 Nasal 2.0L Cannula 10/19 1552 98.4 52 18 98/60 98 Nasal 2.0L Cannula 10/19 1346 98.0 66 18 107/63 99 Nasal 2.0L Cannula 10/19 1211 98.0 68 18 108/65 99 Room Air Intake & Output 10/20 1600 10/20 0800 10/20 0000 Intake Total 1120 150 Output Total 500 600 Balance 620 -450 Intake, IV 1000 Intake, Oral 120 150 Output, Urine 500 600 Patient 140 lb Weight Weight Reported by Patient Measurement Method Assessment/Plan Assessment: 27 y/o M with PMHx of HTN, GI bleed, sickle cell anemia, stroke, cognitive impairment, asthma came to [place] ER with CC of abdominal pain, bilateral lower extremity pain, and low back pain of 8/10 in severity. Patient was recently discharge, about two weeks ago from [facility] due to similar complains. Admission labs: patient presented with transaminitis of AST 72 and ALT 40, Alkaline phosphatase 218, R, T. bili 5.9 and D. bili 1.6 on the setting of cholecystectomy in the past, WBC of 9.9. CXR and CT abd/pel r/o any acute process. Based on history/PE, labs and imagine patient seem to be in sickle crisis. Patient have a reticulocyte count of 12.6 and LDH of 1427. Haptoglobin pending. His transaminitis maybe related to vaso-occlusive state. Plan: Sickle cell anemia: vaso-occlusive painful crisis -No thrombocytopenia -WBC 17 from 10 with no fever, no tachycardia -O2 to prevent sickling and Folic acid to help make new RBC -Pain management with morphine -Will review records from [facility] and Hemtologist at [facility]: will resume hydroxyurea, per [facility] records patient take lisinopril. Will hold lisinopril due to BP in lower side. Transaminitis: -T bilirubin in August was 12.3 now 5.6 -F/U LFT -Pending RUQ US to r/o hepatobiliary pathology Hx of Asthma: -No active asthma at this point -Cont. home meds (symbicort and albuterol inhaler) Code-full code Diet-regular diet DVT prophylaxis-Lovenox
[2017-10-20 09:25] LABS: ABSOLUTE BASOPHIL COUNT 0.4 /CUMM (0.0-0.2); ABSOLUTE EOSINOPHIL COUNT 0.6 /CUMM (0.0-0.7); ABSOLUTE GRANULOCYTE CT 10.2 /CUMM (1.4-6.5); ABSOLUTE LYMPH COUNT 1.8 /CUMM (1.2-3.4); ABSOLUTE MONOCYTE COUNT 2.1 /CUMM (0.10-0.60); BASOPHIL % 2.4 % (0.0-2.0); EOSINOPHIL % 4.3 % (0-5); GRANULOCYTE % 67.3 % (42.2-75.2); HEMATOCRIT 26.8 % (42-52); MEAN CORPUSCULAR HGB CONC 34.8 G/DL (33.0-37.0); MEAN CORPUSCULAR VOLUME 100.4 FL (80.0-94.0); MEAN PLATELET VOLUME 10.9 FL (7.4-10.4); PLATELET COUNT 245 /CUMM (130-400); RBC DISTRIBUTION WIDTH 23.5 % (11.5-14.5); RED BLOOD CELL CT 2.67 /CUMM (4.70-6.10)
[2017-10-20 10:29] LABS: WHITE BLOOD CELL COUNT 16.9 /CUMM (4.8-10.8)
[2017-10-20] MEDS ORDERED: LISINOPRIL20 M1 PO (14:00)
[2017-10-20 15:06] VITALS: BP 100/60
--- NOTE | 2017-10-20 16:34 | ULTRASOUND REPORT ---
EXAMINATION: US ABDOMEN LIMITED CLINICAL INFORMATION: Elevated bilirubin. Rule out biliary pathology. COMPARISON: CT scan of the abdomen and pelvis dated 09/06/2017 TECHNIQUE: Real-time imaging of the right upper quadrant abdominal viscera. FINDINGS: PANCREAS: Normal. LIVER: Normal. The liver demonstrates normal size, contour and echogenicity. No focal lesion or intrahepatic biliary duct dilatation. GALLBLADDER: Normal. The gallbladder is physiologically distended without evidence of stones, sludge, polyps, wall thickening or pericholecystic fluid. COMMON BILE DUCT: Normal in caliber measuring 0.5 cm in diameter. RIGHT KIDNEY: Normal. No hydronephrosis. No renal calculi or focal parenchymal lesions. The kidney measures 11.2 cm in maximum dimension. FREE FLUID: None. IMPRESSION: Normal exam.
[2017-10-20 23:25] VITALS: BP 130/81
--- NOTE | 2017-10-21 06:45 | PN- Housestaff ---
Subjective Follow-up For: Sickle cell crisis Subjective: Patient seen and examined at bedside. Patient lying in his bed comfortably. Complains of 9 x 10 bilateral lower extremity, abdominal pain, back pain. He denies shortness of breath, chest pain. Review of Systems Constitutional: Reports: no symptoms, see HPI. Objective Last 24 Hrs of Vital Signs/I&O Vital Signs Date Time Temp Pulse Resp B/P B/P Pulse O2 O2 Flow FiO2 Mean Ox Delivery Rate 10/21 1445 98.0 78 18 122/65 98 Room Air 10/21 0800 98 Nasal 2.0L Cannula 10/21 0718 98.6 54 18 100/50 100 Nasal 2.0L Cannula 10/21 0000 Nasal 2.0L Cannula 10/20 2325 98.6 85 18 130/81 98 Nasal 2.0L Cannula Intake & Output 10/21 1600 10/21 0800 10/21 0000 Intake Total 600 1000 1000 Output Total 200 1000 1750 Balance 400 0 -750 Intake, IV 1000 1000 Intake, Oral 600 Output, 200 150 Emesis Output, Urine 1000 1600 Physical Exam General Appearance: Alert, Oriented X3, Cooperative, No Acute Distress Cardiovascular: Regular Rate, Normal S1, Normal S2, No Murmurs Lungs: Normal Air Movement Abdomen: Soft, No Tenderness, No Hepatospenomegaly Neurological: Strength at 5/5 X4 Ext, Normal Tone, Sensation Intact Current Medications: Current Medications Sig/Chayo Start time Last Medication Dose Route Stop Time Status Admin Acetaminophen 1,000 MG Q6P PRN 10/19 1545 10/19 N/A 1 UNIT IV 1606 Albuterol Sulfate 2 PUF Q4P PRN 10/19 1900 AC INH Azithromycin 500 MG DAILY 10/21 0956 10/21 Sodium Chloride 250 ML IV 1204 Budesonide/ 2 PUF BID 10/19 2330 AC 10/21 Formoterol Fumarate INH 0949 Ceftriaxone Sodium 1,000 MG DAILY 10/21 0955 AC 10/21 IV 1204 Enoxaparin Sodium 40 MG DAILY 10/21 1245 AC 10/21 SC 1539 Folic Acid 1 MG DAILY 10/20 0900 AC 10/21 PO 0948 Hydroxyurea 1,000 MG BID 10/20 1359 AC 10/21 PO 0949 Morphine Sulfate 30 MG BID 10/19 2100 AC 10/21 PO 0949 Morphine Sulfate 4 MG Q4P PRN 10/19 1545 AC 10/21 IV 1204 Omeprazole 40 MG DAILY AC 10/20 0700 AC 10/21 PO 0534 Ondansetron HCl 4 MG .STK-MED ONE 10/20 2302 DC IM 10/20 2303 Ondansetron HCl 4 MG Q8P PRN 10/19 1345 10/20 IV 2303 Sodium Chloride 1,000 ML Q8H 10/19 1545 10/21 IV 0949 Last 24 Hrs of Lab/Joshua Results Last 24 Hrs of Labs/Mics: Laboratory Tests 10/21/17 1003: Urinalysis LIGHT H, Urine Color YEL, Urine Clarity CLEAR, Urine pH 6.0, Ur Specific [place] 1.015, Urine Protein NEG, Urine Ketones NEG, Urine Nitrite NEG, Urine Bilirubin NEG, Urine Urobilinogen 4.0 H, Ur Leukocyte Esterase NEG, Ur Microscopic SEDIMENT EXAMINED, Urine Hemoglobin NEG, Urine Glucose NEG 10/21/17 0728: Anion Gap 8, Estimated GFR > 60, BUN/Creatinine Ratio 13.3, Total Bilirubin 5.8 H, Direct Bilirubin 1.1 H, AST 48, ALT 40, Alkaline Phosphatase 167 H, Total Protein 5.9 L, Albumin 3.2 L, CBC w Diff NO MAN DIFF REQ, RBC 2.47 L, MCV 101.6 H, MCH 34.7 H, MCHC 34.2, RDW 22.8 H, MPV 11.2 H, Gran % 70.4, Lymphocytes % 12.9 L, Monocytes % 12.1 H, Eosinophils % 4.3, Basophils % 0.3, Absolute Granulocytes 9.4 H, Absolute Lymphocytes 1.7, Absolute Monocytes 1.6 H, Absolute Eosinophils 0.6, Absolute Basophils 0 Microbiology 10/20 1735 BLOOD: Blood Culture - RES 10/20 1655 BLOOD: Blood Culture - RES Assessment/Plan Assessment: 27-year-old -[place] with past medical history of sickle cell anemia, stroke, cognitive impairment, hypertension, GI bleed, asthma came to [place] ER with complaints of abdominal, bilateral lower extremity, lower back pain of 8 x 10 in severity. Assessment and plan 1. Sickle cell ijeozq-mcub-jtcnrvhgz painful crisis 2. Transaminitis * Patient is currently managed with IV fluids, oxygen, pain medications * Pain meds-patient is on morphine ER 30 twice a day at home this has been prescribed by his plant electrical engineer at [facility]. We resumed his hydroxyurea. Chest x-ray taken yesterday shows small left pleural effusion-with patchy opacity possibly pulmonary infarct/pneumonia. We will start him on ceftriaxone and azithromycin for the same. We'll get hematology consult. Take a chest CTA to rule out any infarct * Patient hemoglobin is 9.2 over 26.5 with a platelet count of 235, no thrombocytopenia. Patient has reticulocytosis and high LDH giving the chronic hemolytic picture. Pending haptoglobin level. * Transaminitis patient's T bilirubin in August was 12.3. Today his T bilirubin is 5.9. This can be secondary due to hepatobiliary sequestration crisis/ ischemia /cholestasis. PTSD (trending down. His right upper quadrant ultrasound negative. * Asthma-stable patient is on Symbicort and albuterol inhaler. Patient also uses nebuliser at home. Code-full code Diet-regular diet DVT prophylaxis-Lovenox Problem List: 1. Sickle cell pain crisis Pain Ratin Pain Location: none Pain Goal: Remain pain free Pain Plan: tylenol Tomorrow's Labs & Rationales: cbc,bep
[2017-10-21 07:18] VITALS: BP 100/50
--- NOTE | 2017-10-21 08:19 | PN- Student ---
Subjective Subjective: No acute events overnight. Patient resting in bed. Complains of pain in the back , abdomen and legs. Denied headache, palpitation, nausea/vomiting, diarrhea. Objective Objective: Vital Signs Date Time Temp Pulse Resp B/P B/P Pulse O2 O2 Flow FiO2 Mean Ox Delivery Rate 10/21 1445 98.0 78 18 122/65 98 Room Air 10/21 0800 98 Nasal 2.0L Cannula 10/21 0718 98.6 54 18 100/50 100 Nasal 2.0L Cannula 10/21 0000 Nasal 2.0L Cannula 10/20 2325 98.6 85 18 130/81 98 Nasal 2.0L Cannula Intake & Output 10/21 1600 10/21 0800 10/21 0000 Intake Total 600 1000 1000 Output Total 200 1000 1750 Balance 400 0 -750 Intake, IV 1000 1000 Intake, Oral 600 Output, 200 150 Emesis Output, Urine 1000 1600 General: alert and oriented without any distress HEENT: NCAT, anicteric sclera, moist oral mucosa, no exudates CVS: Normal S1 and S2, regular rate and rythm Lungs: symetrical chest expansion, clear breath sounds, no added sound Abdomen: presented bowel sounds, soft, nontender, nondistended, no hepatosplenomegaly Extremities: palpable pulses, no edema Results Results: Laboratory Tests 10/21/17 1003: Urinalysis LIGHT H, Urine Color YEL, Urine Clarity CLEAR, Urine pH 6.0, Ur Specific [place] 1.015, Urine Protein NEG, Urine Ketones NEG, Urine Nitrite NEG, Urine Bilirubin NEG, Urine Urobilinogen 4.0 H, Ur Leukocyte Esterase NEG, Ur Microscopic SEDIMENT EXAMINED, Urine Hemoglobin NEG, Urine Glucose NEG 10/21/17 0728: Anion Gap 8, Estimated GFR > 60, BUN/Creatinine Ratio 13.3, Total Bilirubin 5.8 H, Direct Bilirubin 1.1 H, AST 48, ALT 40, Alkaline Phosphatase 167 H, Total Protein 5.9 L, Albumin 3.2 L, CBC w Diff NO MAN DIFF REQ, RBC 2.47 L, MCV 101.6 H, MCH 34.7 H, MCHC 34.2, RDW 22.8 H, MPV 11.2 H, Gran % 70.4, Lymphocytes % 12.9 L, Monocytes % 12.1 H, Eosinophils % 4.3, Basophils % 0.3, Absolute Granulocytes 9.4 H, Absolute Lymphocytes 1.7, Absolute Monocytes 1.6 H, Absolute Eosinophils 0.6, Absolute Basophils 0 10/20/17 0858: CBC w Diff MAN DIFF ORDERED, RBC 2.67 L, MCV 100.4 H, MCH 35.0 H, MCHC 34.8, RDW 23.5 H, MPV 10.9 H, Gran % 67.3, Lymphocytes % 12.1 L, Monocytes % 13.9 H, Eosinophils % 4.3, Basophils % 2.4 H, Absolute Granulocytes 10.2 H, Segmented Neutrophils 65, Absolute Lymphocytes 1.8, Lymphocytes 15 L, Monocytes 14 H, Absolute Monocytes 2.1 H, Eosinophils 4, Absolute Eosinophils 0.6, Basophils 2, Absolute Basophils 0.4, Nucleated RBCs 6 H, Platelet Estimate VERIFIED BY SMEAR, Polychromasia 1+, Poikilocytosis 2+, Anisocytosis 2+, Macrocytic Cells 1+, Target Cells 1+ Assessment/Plan Assessment: 27 y/o M with PMHx of HTN, GI bleed, sickle cell anemia, stroke, cognitive impairment, asthma came to [place] ER with CC of abdominal pain, bilateral lower extremity pain, and low back pain of 8/10 in severity. Patient was recently discharge, about two weeks ago from [facility] due to similar complains. Admission labs: patient presented with transaminitis of AST 72 and ALT 40, Alkaline phosphatase 218, R, T. bili 5.9 and D. bili 1.6 on the setting of cholecystectomy in the past, WBC of 9.9.Based on history/PE, labs and imagine patient seem to be in sickle crisis. Patient have a reticulocyte count of 12.6 and LDH of 1427. Haptoglobin pending. His transaminitis maybe related to vaso-occlusive state. Plan: Sickle cell anemia: vaso-occlusive painful crisis -No thrombocytopenia -Today CXR showed a small pleural effusion with right lower lung airspace opacity which may represent pneumonia -WBC 13 today with no fever, no tachycardia -Treatment as comunity acquired pneumonia with Azitromycin and Ceftriaxone -O2 to prevent sickling and Folic acid to help make new RBC -Pain management with morphine -Will review records from [facility] and Hemtologist at [place]: will resume hydroxyurea, per [place] records patient take lisinopril. Will hold lisinopril due to BP in lower side. Transaminitis: -F/U LFT -Negative RUQ US Hx of Asthma: -No active asthma at this point -Cont. home meds (symbicort and albuterol inhaler) Code-full code Diet-regular diet DVT prophylaxis-Lovenox
[2017-10-21 08:42] LABS: ABSOLUTE BASOPHIL COUNT 0 /CUMM (0.0-0.2); ABSOLUTE EOSINOPHIL COUNT 0.6 /CUMM (0.0-0.7); ABSOLUTE GRANULOCYTE CT 9.4 /CUMM (1.4-6.5); ABSOLUTE LYMPH COUNT 1.7 /CUMM (1.2-3.4); ABSOLUTE MONOCYTE COUNT 1.6 /CUMM (0.10-0.60); BASOPHIL % 0.3 % (0.0-2.0); EOSINOPHIL % 4.3 % (0-5); HEMATOCRIT 25.1 % (42-52); MEAN CORPUSCULAR HGB 34.7 PG (27.0-31.0); MEAN CORPUSCULAR HGB CONC 34.2 G/DL (33.0-37.0); MEAN CORPUSCULAR VOLUME 101.6 FL (80.0-94.0); MEAN PLATELET VOLUME 11.2 FL (7.4-10.4); RBC DISTRIBUTION WIDTH 22.8 % (11.5-14.5); RED BLOOD CELL CT 2.47 /CUMM (4.70-6.10); WHITE BLOOD CELL COUNT 13.4 /CUMM (4.8-10.8)
[2017-10-21 09:08] LABS: GRANULOCYTE % 70.4 % (42.2-75.2); PLATELET COUNT 248 /CUMM (130-400)
--- NOTE | 2017-10-21 09:27 | RADIOLOGY REPORT ---
EXAMINATION: XR CHEST CLINICAL INFORMATION: Pain in abdomen, arm, and lower back. Sickle cell crisis. COMPARISON: 09/06/2017 TECHNIQUE: 2 views of the chest were obtained. FINDINGS: The lungs are well expanded. There is a focal airspace opacity in the right lower lung, likely within the right lower lobe. Small right pleural effusion. The left lung is clear. No pneumothorax.. The cardiomediastinal silhouette is mildly prominent. No acute osseous abnormality. IMPRESSION: Small right pleural effusion with right lower lung airspace opacity which may represent pneumonia. Mild prominence of the cardiac silhouette. This is similar to previous CT.
--- NOTE | 2017-10-21 12:46 | PN- Att Addend ---
Attending Addendum Attending Brief Note Patient seen and examined, continues complain of pain mostly in the back, abdomen and lower extremities. He said that the pain has not improved at all. Patient's chest x-ray does show possibility of pneumonia. With his history of sickle cell, there is always concern for pulmonary infarct. Vital Signs Date Time Temp Pulse Resp B/P B/P Pulse O2 O2 Flow FiO2 Mean Ox Delivery Rate 10/21 0800 98 Nasal 2.0L Cannula 10/21 0718 98.6 54 18 100/50 100 Nasal 2.0L Cannula 10/21 0000 Nasal 2.0L Cannula 10/20 2325 98.6 85 18 130/81 98 Nasal 2.0L Cannula 10/20 1506 98.2 75 20 100/60 100 Nasal Cannula on exam aox3, nad. cv; s1,s2, rrr resp; clear abd; soft, nt, bs+ ext; no edema Laboratory Tests 10/21 10/21 1003 0728 Chemistry Sodium (137 - 145 mmol/L) 141 Potassium (3.5 - 5.1 mmol/L) 4.0 Chloride (98 - 107 mmol/L) 107 Carbon Dioxide (22 - 30 mmol/L) 26 Anion Gap (5 - 16) 8 BUN (9 - 20 mg/dL) 8 L Creatinine (0.7 - 1.2 mg/dL) 0.6 L Estimated GFR (>60 ml/min) > 60 BUN/Creatinine Ratio (7 - 25 %) 13.3 Total Bilirubin (0.2 - 1.3 mg/dL) 5.8 H Direct Bilirubin (< 0.4 mg/dL) 1.1 H AST (17 - 59 U/L) 48 ALT (21 - 72 U/L) 40 Alkaline Phosphatase (< 127 U/L) 167 H Total Protein (6.3 - 8.2 g/dL) 5.9 L Albumin (3.5 - 5.0 g/dL) 3.2 L Hematology CBC w Diff NO MAN DIFF REQ WBC (4.8 - 10.8 /CUMM) 13.4 H RBC (4.70 - 6.10 /CUMM) 2.47 L Hgb (14.0 - 18.0 G/DL) 8.6 L Hct (42 - 52 %) 25.1 L MCV (80.0 - 94.0 FL) 101.6 H MCH (27.0 - 31.0 PG) 34.7 H MCHC (33.0 - 37.0 G/DL) 34.2 RDW (11.5 - 14.5 %) 22.8 H Plt Count (130 - 400 /CUMM) 248 MPV (7.4 - 10.4 FL) 11.2 H Gran % (42.2 - 75.2 %) 70.4 Lymphocytes % (20.5 - 51.1 %) 12.9 L Monocytes % (1.7 - 9.3 %) 12.1 H Eosinophils % (0 - 5 %) 4.3 Basophils % (0.0 - 2.0 %) 0.3 Absolute Granulocytes (1.4 - 6.5 /CUMM) 9.4 H Absolute Lymphocytes (1.2 - 3.4 /CUMM) 1.7 Absolute Monocytes (0.10 - 0.60 /CUMM) 1.6 H Absolute Eosinophils (0.0 - 0.7 /CUMM) 0.6 Absolute Basophils (0.0 - 0.2 /CUMM) 0 Urines Urinalysis LIGHT H Urine Color (YEL,AMB,STR) YEL Urine Clarity (CLEAR) CLEAR Urine pH (5.0 - 8.0) 6.0 Ur Specific [place] (1.001 - 1.035) 1.015 Urine Protein (NEG,<30 MG/DL) NEG Urine Ketones (NEG) NEG Urine Nitrite (NEG) NEG Urine Bilirubin (NEG) NEG Urine Urobilinogen (0.1 - 1.0 EU/dl) 4.0 H Ur Leukocyte Esterase (NEG) NEG Ur Microscopic SEDIMENT EXAMINED Urine Hemoglobin (NEG) NEG Urine Glucose (N MG/DL) NEG A/P: 27 y/o M with pmh sig for hypertension, GI bleed, sickle cell anemia, asthma admitted with generalized pain specially in his back and his abdomen as well as acute sickle cell crisis. We'll start the patient on antibiotics for pneumonia coverage. We'll obtain CT chest to rule out pulmonary infarct. Hematology consult would be obtained. Patient does have a drop in his H&H this morning. Will repeat levels tonight and if there is further drop then he will need transfusion with RBCs. Continue IV hydration, oxygen. Continue current pain management. We'll follow-up on the urinalysis, urine culture and blood cultures. His hydroxyurea has been resumed. Please add pharmacologic DVt px as plts counts normal.
--- NOTE | 2017-10-21 14:37 | Cons- Hematology ---
General Information and HPI Consulting Request Date of Consult: 10/21/17 Requested By: Marcio FLOWERS,[facility] Reason for Consult: sickle cell crisis Source of Information: patient, old records Exam Limitations: no limitations History of Present Illness: Mr. Pham is a 27-year-old male with history of sickle cell anemia (follows by Dr. Simpson and Lebron previously) currently on hydroxyurea, stroke, cognitive impairment, asthma, GI bleeding, and hypertension who presented with worsening back pain, arm pain, and leg pain. He has no fever or chills. He has no nausea or vomiting. Pain started about 3 days prior to presentation. He states he was at a friend's wedding and was in the area. He denies any recent illness. He has no changes in his vision. He denies any headaches or confusion. He denies any dsyuria. He has no coughing. He denies any shortness of breath. He denies any confusion. He was recently hospitalized at [facility] about 1-2 weeks ago. Since hospitalization, he has been given IVF, oxygen, and started on folic acid. Imaging was concerning for pneumonia and small pleural effusion. Blood work demonstrated hemoglobin of 9.2 with hematocrit of 26.5. Platelet count was 235, 000. WBC was 9,900. Total bilirubin was 5,9 with direct bilirubin was 1.6. LDH was elevated at 1427. Alkaline phosphatase is elevated at 218. He was previously seen by Dr. Simpson in [place] and Dr. Diana at [facility] sickle cell [facility]. He has been on hydroxyurea for all his life. He states he is seeing Dr. Moon now. He has not had a transfusion in 1 year. Allergies/Medications Allergies: Coded Allergies: aspirin (Mild, GI UPSET 10/19/17) hydromorphone (From DILAUDID) (Mild, HIVES AND NAUSEA 10/19/17) ibuprofen (Mild, GI ISSUES 10/19/17) Home Med List: Hydroxyurea 500 MG CAPSULE 2 PO BID sickle cell anemia (Reported) Lisinopril 20 MG TABLET 1 TAB PO DAILY htn (Reported) Morphine Sulfate (Morphine Sulfate ER) 30 MG TABLET.ER 1 TAB PO BIDP PRN PAIN (Reported) Ondansetron (Zofran Odt) 4 MG TAB.RAPDIS 1 TAB SL TID PRN NAUSEA Pantoprazole Sodium (Protonix) 40 MG TABLET. 1 TAB PO DAILY STOMACH BURNING Current Medications: Current Medications Sig/Chayo Start time Last Medication Dose Route Stop Time Status Admin Acetaminophen 1,000 MG Q6P PRN 10/19 1545 AC 10/19 N/A 1 UNIT IV 1606 Albuterol Sulfate 2 PUF Q4P PRN 10/19 1900 AC INH Azithromycin 500 MG DAILY 10/21 0956 AC 10/21 Sodium Chloride 250 ML IV 1204 Budesonide/ 2 PUF BID 10/19 2330 AC 10/21 Formoterol Fumarate INH 0949 Ceftriaxone Sodium 1,000 MG DAILY 10/21 0955 AC 10/21 IV 1204 Enoxaparin Sodium 40 MG DAILY 10/21 1245 AC SC Folic Acid 1 MG DAILY 10/20 0900 AC 10/21 PO 0948 Hydroxyurea 1,000 MG BID 10/20 1359 AC 10/21 PO 0949 Morphine Sulfate 30 MG BID 10/19 2100 AC 10/21 PO 0949 Morphine Sulfate 4 MG Q4P PRN 10/19 1545 AC 10/21 IV 1204 Omeprazole 40 MG DAILY AC 10/20 0700 AC 10/21 PO 0534 Ondansetron HCl 4 MG .STK-MED ONE 10/20 2302 DC IM 10/20 2303 Ondansetron HCl 4 MG Q8P PRN 10/19 1345 AC 10/20 IV 2303 Sodium Chloride 1,000 ML Q8H 10/19 1545 AC 10/21 IV 0949 Review of Systems Review of Systems Constitutional: Denies: chills, fever, weakness. EENTM: Denies: double vision. Cardiovascular: Reports: chest pain. Denies: edema, palpitations, syncope. Respiratory: Denies: cough, short of breath. GI: Denies: diarrhea, distention, nausea, vomiting. Genitourinary: Denies: dysuria. Musculoskeletal: Reports: back pain, joint pain, muscle pain, neck pain. Skin: Denies: rash. Neurological/Psychological: Denies: confusion, depressed. Hematologic/Endocrine: Denies: bruising, bleeding. Immunologic/Allergic: Denies: lymphadenopathy. All Other Systems: Reviewed and Negative Past History Travel History Traveled to [place] past 21 day No Medical History Blood Transfusion Hx: Yes Neurological: STROKE HX EENT: NONE Cardiovascular: hypertension, ENLARGED HEART Respiratory: asthma Gastrointestinal: GERD, GI BLEED HX Hepatic: NONE Renal: NONE Musculoskeletal: NONE Psychiatric: depression Endocrine: hypothyroidism Blood Disorders: SICKLE CELL ANEMIA Cancer(s): NONE BUSINESS SOLUTIONS CONSULTANT/Reproductive: NONE Surgical History Surgical History: cholecystectomy Family History Relations & Conditions If Any: MOTHER (sickle cell carrier). Psychosocial History Where Do You Live? Home Who Do You Live With? self Services at Home: None Primary Language: Hong Konger Smoking Status: Never Smoked ETOH Use: denies use Illicit Drug Use: denies illicit drug use Functional Ability ADLs Independent: dressing, eating, toileting, bathing. Ambulation: independent IADLs Independent: shopping, housework, finances, food prep, telephone, transportation , medication admin. Exam & Diagnostic Data Vital Signs and I&O Vital Signs Date Time Temp Pulse Resp B/P B/P Pulse O2 O2 Flow FiO2 Mean Ox Delivery Rate 10/21 0800 98 Nasal 2.0L Cannula 10/21 0718 98.6 54 18 100/50 100 Nasal 2.0L Cannula 10/21 0000 Nasal 2.0L Cannula 10/20 2325 98.6 85 18 130/81 98 Nasal 2.0L Cannula 10/20 1506 98.2 75 20 100/60 100 Nasal Cannula Intake & Output 10/21 1600 10/21 0800 10/21 0000 Intake Total 600 1000 1000 Output Total 200 1000 1750 Balance 400 0 -750 Intake, IV 1000 1000 Intake, Oral 600 Output, 200 150 Emesis Output, Urine 1000 1600 Physical Exam General Appearance: well developed/nourished, no apparent distress, alert, awake , comfortable, thin Head: normal appearance Eyes: Bilateral: PERRL, EOMI. Ears, Nose, Throat: normal pharynx Respiratory: normal breath sounds, chest non-tender, no respiratory distress, quiet respiration (bases), decreased breath sounds Cardiovascular: regular rate/rhythm Gastrointestinal: normal bowel sounds, soft, non-tender Extremities: no edema Neurologic/Psych: awake, alert, oriented x 3 Cranial Nerves: normal hearing, normal speech, PERRL Lymphatic: no anterior cervical esvin Last 48 Hours of Lab Results: Laboratory Tests 10/21 10/21 1003 0728 Chemistry Sodium (137 - 145 mmol/L) 141 Potassium (3.5 - 5.1 mmol/L) 4.0 Chloride (98 - 107 mmol/L) 107 Carbon Dioxide (22 - 30 mmol/L) 26 Anion Gap (5 - 16) 8 BUN (9 - 20 mg/dL) 8 L Creatinine (0.7 - 1.2 mg/dL) 0.6 L Estimated GFR (>60 ml/min) > 60 BUN/Creatinine Ratio (7 - 25 %) 13.3 Total Bilirubin (0.2 - 1.3 mg/dL) 5.8 H Direct Bilirubin (< 0.4 mg/dL) 1.1 H AST (17 - 59 U/L) 48 ALT (21 - 72 U/L) 40 Alkaline Phosphatase (< 127 U/L) 167 H Total Protein (6.3 - 8.2 g/dL) 5.9 L Albumin (3.5 - 5.0 g/dL) 3.2 L Hematology CBC w Diff NO MAN DIFF REQ WBC (4.8 - 10.8 /CUMM) 13.4 H RBC (4.70 - 6.10 /CUMM) 2.47 L Hgb (14.0 - 18.0 G/DL) 8.6 L Hct (42 - 52 %) 25.1 L MCV (80.0 - 94.0 FL) 101.6 H MCH (27.0 - 31.0 PG) 34.7 H MCHC (33.0 - 37.0 G/DL) 34.2 RDW (11.5 - 14.5 %) 22.8 H Plt Count (130 - 400 /CUMM) 248 MPV (7.4 - 10.4 FL) 11.2 H Gran % (42.2 - 75.2 %) 70.4 Lymphocytes % (20.5 - 51.1 %) 12.9 L Monocytes % (1.7 - 9.3 %) 12.1 H Eosinophils % (0 - 5 %) 4.3 Basophils % (0.0 - 2.0 %) 0.3 Absolute Granulocytes (1.4 - 6.5 /CUMM) 9.4 H Absolute Lymphocytes (1.2 - 3.4 /CUMM) 1.7 Absolute Monocytes (0.10 - 0.60 /CUMM) 1.6 H Absolute Eosinophils (0.0 - 0.7 /CUMM) 0.6 Absolute Basophils (0.0 - 0.2 /CUMM) 0 Urines Urinalysis LIGHT H Urine Color (YEL,AMB,STR) YEL Urine Clarity (CLEAR) CLEAR Urine pH (5.0 - 8.0) 6.0 Ur Specific [place] (1.001 - 1.035) 1.015 Urine Protein (NEG,<30 MG/DL) NEG Urine Ketones (NEG) NEG Urine Nitrite (NEG) NEG Urine Bilirubin (NEG) NEG Urine Urobilinogen (0.1 - 1.0 EU/dl) 4.0 H Ur Leukocyte Esterase (NEG) NEG Ur Microscopic SEDIMENT EXAMINED Urine Hemoglobin (NEG) NEG Urine Glucose (N MG/DL) NEG 10/20 10/20 0858 0300 Hematology CBC w Diff MAN DIFF ORDERED WBC (4.8 - 10.8 /CUMM) 16.9 H RBC (4.70 - 6.10 /CUMM) 2.67 L Hgb (14.0 - 18.0 G/DL) 9.3 L Hct (42 - 52 %) 26.8 L MCV (80.0 - 94.0 FL) 100.4 H MCH (27.0 - 31.0 PG) 35.0 H MCHC (33.0 - 37.0 G/DL) 34.8 RDW (11.5 - 14.5 %) 23.5 H Plt Count (130 - 400 /CUMM) 245 MPV (7.4 - 10.4 FL) 10.9 H Gran % (42.2 - 75.2 %) 67.3 Lymphocytes % (20.5 - 51.1 %) 12.1 L Monocytes % (1.7 - 9.3 %) 13.9 H Eosinophils % (0 - 5 %) 4.3 Basophils % (0.0 - 2.0 %) 2.4 H Absolute Granulocytes (1.4 - 6.5 /CUMM) 10.2 H Segmented Neutrophils (42.2 - 75.2 %) 65 Absolute Lymphocytes (1.2 - 3.4 /CUMM) 1.8 Lymphocytes (20.5 - 51.1 %) 15 L Monocytes (1.7 - 9.3 %) 14 H Absolute Monocytes (0.10 - 0.60 /CUMM) 2.1 H Eosinophils (0 - 5.0 %) 4 Absolute Eosinophils (0.0 - 0.7 /CUMM) 0.6 Basophils (0.0 - 2.0 %) 2 Absolute Basophils (0.0 - 0.2 /CUMM) 0.4 Nucleated RBCs (0.0 - 0.0 /100WBC) 6 H Platelet Estimate (ADEQUATE) VERIFIED BY SMEAR Polychromasia 1+ Poikilocytosis 2+ Anisocytosis 2+ Macrocytic Cells 1+ Target Cells 1+ Toxicology Urine Opiates Screen (>2000 NG/ML) > 4000.00 H Methadone Screen (>300 NG/ML) 43 Barbiturate Screen (>200 NG/ML) < 60 Ur Phencyclidine Scrn (>25 NG/ML) < 6.00 Amphetamines Screen (>1000 NG/ML) < 100 U Benzodiazepines Scrn (>200 NG/ML) < 85 Urine Cocaine Screen (>300 NG/ML) < 50 Urine Cannabis Screen (>50 NG/ML) < 5.00 Imaging/Other Studies: CXR 10/21/2017: The lungs are well expanded. There is a focal airspace opacity in the right lower lung, likely within the right lower lobe. Small right pleural effusion. The left lung is clear. No pneumothorax.. The cardiomediastinal silhouette is mildly prominent. No acute osseous abnormality. IMPRESSION: Small right pleural effusion with right lower lung airspace opacity which may represent pneumonia. Mild prominence of the cardiac silhouette. This is similar to previous CT. Abdominal US 10/20/2017: PANCREAS: Normal. LIVER: Normal. The liver demonstrates normal size, contour and echogenicity. No focal lesion or intrahepatic biliary duct dilatation. GALLBLADDER: Normal. The gallbladder is physiologically distended without evidence of stones, sludge, polyps, wall thickening or pericholecystic fluid. COMMON BILE DUCT: Normal in caliber measuring 0.5 cm in diameter. RIGHT KIDNEY: Normal. No hydronephrosis. No renal calculi or focal parenchymal lesions. The kidney measures 11.2 cm in maximum dimension. FREE FLUID: None. IMPRESSION: Normal exam. Assessment/Plan Assessment: Mr. Pham is a 27-year-old male with history of sickle cell anemia (follows by Dr. Simpson and Lebron previously) currently on hydroxyurea, stroke, cognitive impairment, asthma, GI bleeding, and hypertension who presented with worsening back pain, arm pain, and leg pain. He presents with sickle cell crisis. CXR was notable for possible small pleural effusion. Blood work demonstrated downward trending hemoglobin and hematocrit. His hemoglobin today is 8.6 with hematocrit of 25.1. WBC has improved. Platelet count is normal. He is being treated for pneumonia. His pain is stable and persistent. He continues to be afebrile. He will need to follow up with his second baker as an outpatient (Dr. Simpson or Dr. Diana at [facility]). He will continue on hydroxyurea. Anemia is likely somewhat dilutation. His baseline is around 9-10 for hemoglobin. He is not to far from baseline. He does not need transfusion unless he is symptomatic. Transfusion should be limited unless needed. Recommendations: Sickle cell crisis: -continue IVF -continue nasal canula oxygen -encourage incentive spirometry -encourage ambulation -continue current pain management -continue current antibiotic as per primary -continue folic acid -monitor CBC -transfusion with RBC if symptomatic -continue hydroxyurea -rule out infection -continue DVT prophylaxis -follow up with second baker as previously (Dr. Diana at [facility] or Dr. Simpson in [place]) Problem List: 1. Sickle cell pain crisis Other Findings/Comments: Please call [phone] with any questions or concerns. Consult Acknowledgment - Thank you for your consult request.
[2017-10-21 14:45] VITALS: BP 122/65
--- NOTE | 2017-10-21 17:08 | CT SCAN REPORT ---
EXAMINATION: CT CHEST PE STUDY CLINICAL INFORMATION: Abdominal pain. X-ray shows pleural effusion on the right side. Sickle cell. Looking for pulmonary infarct. COMPARISON: Chest x-ray dated 10/21/2017. Tear of the chest dated 09/06/2017. TECHNIQUE: Prior to contrast administration, localization images were obtained. After the administration of 95 and mL of intravenous Optiray 320, multidetector CT volume acquisition of the chest was performed. 2-D postprocessing was performed with multiplanar reconstructions and MIP images obtained at the acquisition workstation under concurrent physician supervision. DLP: 245.11 mGy-cm. FINDINGS: Pulmonary arteries: The bolus timing on this study was acceptable for visualization of the pulmonary arterial tree. There are no intraluminal pulmonary arterial filling defects present to suggest pulmonary embolism in the main pulmonary artery, right and left main pulmonary artery, lobar and segmental branches. Lungs: Small bilateral pleural effusions are seen. There are patchy parenchymal opacities and volume loss noted in both lower lobes, most likely related to atelectatic changes. In addition, there is an area of dense consolidation in the right upper lobe peripherally, based upon the right major fissure. There are several small nodular densities seen in the right upper lobe, demonstrating irregular margins and surrounded by patchy groundglass opacity, measuring up to 1.5 x 1.0 cm (series 2, image 164). These findings in the right upper lobe may be explained by multifocal pneumonia). Less likely, findings may be related to evolving infarct with multifocal areas of hemorrhage in the right upper lobe. The central airways are patent. Aorta and heart: The heart is markedly enlarged with four-chamber enlargement seen, similar to prior exam. Thoracic aorta is normal in caliber and unremarkable in appearance. No evidence of aortic dissection or periaortic collection seen. Incidental note is made of 2 right renal arteries. There is a small pericardial effusion. Lymphatic structures: There is some amorphous soft tissue density in the anterosuperior mediastinum, consistent with residual thymic tissue, unchanged. There is right hilar and right azygos esophageal recess adenopathy seen, likely reactive to the lung findings. Upper abdomen: The patient is status post cholecystectomy. The spleen is not seen in the left upper quadrant. 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 The liver is enlarged and extends across the midline into the left upper quadrant. Limited evaluation of the upper abdominal viscera demonstrates no other focal abnormality. Bones: Again seen are mixed lytic and sclerotic densities in the humeral heads bilaterally, consistent with bone infarct/osteonecrosis, unchanged. No significant focal findings. IMPRESSION: 1. No evidence of pulmonary embolism. 2. Dense consolidation and multifocal irregular nodular opacities and groundglass opacities in the right upper lobe. Findings are most consistent with multifocal pneumonia. Associated reactive adenopathy is seen in the right hilum and azygous esophageal recess. Pulmonary infarct/pulmonary hemorrhage is felt to be much less likely as no abnormal filling defect is seen within the pulmonary arteries with the right upper lobe. Close clinical correlation and follow-up CT scan is recommended for reassessment. 3. Markedly enlarged heart, suspicious for a dilated cardiomyopathy. Associated small pericardial effusion is seen. 4. Status post cholecystectomy. 5. 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 6. 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
[2017-10-21 20:16] LABS: HEMATOCRIT 25.6 % (42-52); MEAN CORPUSCULAR HGB 34.6 PG (27.0-31.0); MEAN CORPUSCULAR HGB CONC 34.9 G/DL (33.0-37.0); MEAN CORPUSCULAR VOLUME 99.3 FL (80.0-94.0); MEAN PLATELET VOLUME 11.5 FL (7.4-10.4); PLATELET COUNT 236 /CUMM (130-400); RBC DISTRIBUTION WIDTH 21.8 % (11.5-14.5); RED BLOOD CELL CT 2.58 /CUMM (4.70-6.10)
[2017-10-21 20:48] LABS: WHITE BLOOD CELL COUNT 15.6 /CUMM (4.8-10.8)
[2017-10-21 21:06] VITALS: BP 115/67
[2017-10-22 05:47] VITALS: BP 110/64
--- NOTE | 2017-10-22 07:41 | PN- Housestaff ---
Daniel FLOWERS,[place] 10/22/17 0740: Subjective Follow-up For: sickle haroldo anemmia Subjective: Patient seen and examined at bedside. No overnight events. Patient complains of 8 x 10 pain in his lower abdomen, low back, bilateral lower extremity. He denies chest pain/shortness of breath. Review of Systems Constitutional: Reports: no symptoms, see HPI. Objective Last 24 Hrs of Vital Signs/I&O Vital Signs Date Time Temp Pulse Resp B/P B/P Pulse O2 O2 Flow FiO2 Mean Ox Delivery Rate 10/22 0800 Nasal 2.0L Cannula 10/22 0547 98.1 58 20 110/64 97 Nasal 2.0L Cannula 10/22 0000 Nasal 2.0L Cannula 10/21 2106 98.2 63 18 115/67 96 10/21 1445 98.0 78 18 122/65 98 Room Air Intake & Output 10/22 1600 10/22 0800 10/22 0000 Intake Total 240 1200 1200 Output Total 1050 1150 Balance 240 150 50 Intake, IV 1200 1200 Intake, Oral 240 Output, Urine 1050 1150 Physical Exam General Appearance: Alert, Oriented X3, Cooperative, No Acute Distress Cardiovascular: Regular Rate, Normal S1, Normal S2, No Murmurs Lungs: Normal Air Movement Abdomen: Soft, No Tenderness, No Hepatospenomegaly Neurological: Normal Speech, Strength at 5/5 X4 Ext, Normal Tone, Sensation Intact, Cranial Nerves 3-12 NL Current Medications: Current Medications Sig/Chayo Start time Last Medication Dose Route Stop Time Status Admin Acetaminophen 1,000 MG Q6P PRN 10/19 1545 10/21 N/A 1 UNIT IV 1950 Albuterol Sulfate 2 PUF Q4P PRN 10/19 1900 AC INH Azithromycin 500 MG DAILY 10/21 0956 10/22 Sodium Chloride 250 ML IV 0803 Budesonide/ 2 PUF BID 10/19 2330 AC 10/22 Formoterol Fumarate INH 0803 Ceftriaxone Sodium 1,000 MG DAILY 10/21 0955 10/22 IV 0803 Enoxaparin Sodium 40 MG DAILY 10/21 1245 10/22 SC 0802 Folic Acid 1 MG DAILY 10/20 0900 AC 10/22 PO 0802 Hydroxyurea 1,000 MG BID 10/20 1359 AC 10/22 PO 0802 Morphine Sulfate 30 MG BID 10/19 2100 AC 10/22 PO 0802 Morphine Sulfate 4 MG Q4P PRN 10/19 1545 AC 10/22 IV 0323 Omeprazole 40 MG DAILY AC 10/20 0700 AC 10/22 PO 0521 Ondansetron HCl 4 MG Q8P PRN 10/19 1345 AC 10/20 IV 2303 Sodium Chloride 2 SPRAY Q4P PRN 10/22 0800 AC RY Sodium Chloride 1,000 ML Q8H 10/19 1545 AC 10/22 IV 0811 Last 24 Hrs of Lab/Joshua Results Last 24 Hrs of Labs/Mics: Laboratory Tests 10/22/17 0730: Anion Gap 6, Estimated GFR > 60, BUN/Creatinine Ratio 12.0, Iron 38 L, TIBC 192 L, Ferritin Pending, Vitamin B12 Pending, Folate Pending, CBC w Diff NO MAN DIFF REQ, RBC 2.45 L, MCV 101.8 H, MCH 34.0 H, MCHC 33.3, RDW 21.6 H, MPV 11.2 H, Gran % 63.8, Lymphocytes % 20.9, Monocytes % 11.5 H, Eosinophils % 3.4 , Basophils % 0.4, Absolute Granulocytes 8.1 H, Absolute Lymphocytes 2.6, Absolute Monocytes 1.5 H, Absolute Eosinophils 0.4, Absolute Basophils 0.1 10/21/171922: CBC w Diff MAN DIFF ORDERED, RBC 2.58 L, MCV 99.3 H, MCH 34.6 H, MCHC 34.9, RDW 21.8 H, MPV 11.5 H, Segmented Neutrophils 75, Band Neutrophils 3, Lymphocytes 14 L, Monocytes 8, Nucleated RBCs 5 H, Platelet Estimate ADEQUATE, Hypochromic-Microcytic 1+, Poikilocytosis 1+, Anisocytosis 2+, Target Cells 2+ 10/21/17 1003: Urinalysis LIGHT H, Urine Color YEL, Urine Clarity CLEAR, Urine pH 6.0, Ur Specific [place] 1.015, Urine Protein NEG, Urine Ketones NEG, Urine Nitrite NEG, Urine Bilirubin NEG, Urine Urobilinogen 4.0 H, Ur Leukocyte Esterase NEG, Ur Microscopic SEDIMENT EXAMINED, Urine Hemoglobin NEG, Urine Glucose NEG Assessment/Plan Assessment: 27-year-old -[place]er with past medical history of sickle cell anemia, stroke, cognitive impairment, hypertension, GI bleed, asthma came to [place] [facility] with complaints of abdominal, bilateral lower extremity, lower back pain of 8 x 10 in severity. Assessment and plan 1. Sickle cell [id number] painful crisis 2. Transaminitis * Patient is currently managed with IV fluids, oxygen, pain medications * Pain meds-patient is on morphine ER 30 twice a day. Chest x-ray taken shows small left pleural effusion-with patchy opacity possibly pulmonary infarct/ pneumonia. Patient was started on ceftriaxone and azithromycin for the same. Patient also underwent CTA which showed small pericardial effusion with dilated cardiomyopathy and right side consolidation in the lung. This was discussed with the syrup shed supervisor who suggested to continue the current management. * Patient's hemoglobin today 8.3 with a hematocrit of 25. Patient is asymptomatic. If patient becomes symptomatic due to anemia we will give him blood transfusion. Keep a high threshold for blood transfusion. Haptoglobin level is 15. Patient has a low TIBC with low iron level-chronic anemia picture. * Transaminitis -trended down. Ultrasound negative. * Asthma-stable patient is on Symbicort and albuterol inhaler. Patient also uses nebuliser at home. Code-full code Diet-regular diet DVT prophylaxis-Lovenox Problem List: 1. Sickle cell pain crisis 2. Pneumonia Pain Ratin Pain Location: le,abd Pain Goal: Remain pain free Pain Plan: morphine,tylenol Tomorrow's Labs & Rationales: cbc,bep Marcio FLOWERS,[place] 10/22/17 1229: Attending MD Review Statement Attending Statement Attending MD Statement: examined this patient, discuss w/resident/PA/FIXED ROUTE OPERATOR, agreed w/resident/PA/FIXED ROUTE OPERATOR, reviewed EMR data (avail), discussed with nursing, discussed with case mgmt, reviewed images, amended to note Attending Assessment/Plan: Patient seen and examined, claims that he feels the same. Still having pain everywhere. His CT chest shows dense consolidation and multifocal irregular nodular opacities and groundglass opacities in the right upper lobe. Findings are most consistent with multifocal pneumonia. Less likely pulmonary infarct. CT also consistent with Markedly enlarged heart, suspicious for a dilated cardiomyopathy. Associated small pericardial effusion is seen. Patient didn't that he knows about enlarged heart but doesn't remember if he has ever seen a quality assurance assistant for that. Vital Signs Date Time Temp Pulse Resp B/P B/P Pulse O2 O2 Flow FiO2 Mean Ox Delivery Rate 10/22 0800 Nasal 2.0L Cannula 10/22 0547 98.1 58 20 110/64 97 Nasal 2.0L Cannula 10/22 0000 Nasal 2.0L Cannula 10/21 2106 98.2 63 18 115/67 96 10/21 1445 98.0 78 18 122/65 98 Room Air on exam; aox3, nad. cv; s1,s2, rrr resp; clear abd; soft, nt, bs+ ext; no edema Laboratory Tests 10/22 10/21 0730 1923 Chemistry Sodium (137 - 145 mmol/L) 141 Potassium (3.5 - 5.1 mmol/L) 4.2 Chloride (98 - 107 mmol/L) 109 H Carbon Dioxide (22 - 30 mmol/L) 27 Anion Gap (5 - 16) 6 BUN (9 - 20 mg/dL) 6 L Creatinine (0.7 - 1.2 mg/dL) 0.5 L Estimated GFR (>60 ml/min) > 60 BUN/Creatinine Ratio (7 - 25 %) 12.0 Iron (49 - 181 ug/dL) 38 L TIBC (261 - 462 ug/dL) 192 L Ferritin (17.9 - 464 ng/mL) 492.0 H Vitamin B12 (239 - 931 pg/mL) 746 Folate (2.76 - 20.0 ng/mL) 11.9 Hematology CBC w Diff NO MAN DIFF REQ MAN DIFF ORDERED WBC (4.8 - 10.8 /CUMM) 12.6 H 15.6 H RBC (4.70 - 6.10 /CUMM) 2.45 L 2.58 L Hgb (14.0 - 18.0 G/DL) 8.3 L 8.9 L Hct (42 - 52 %) 25.0 L 25.6 L MCV (80.0 - 94.0 FL) 101.8 H 99.3 H MCH (27.0 - 31.0 PG) 34.0 H 34.6 H MCHC (33.0 - 37.0 G/DL) 33.3 34.9 RDW (11.5 - 14.5 %) 21.6 H 21.8 H Plt Count (130 - 400 /CUMM) 224 236 MPV (7.4 - 10.4 FL) 11.2 H 11.5 H Gran % (42.2 - 75.2 %) 63.8 Lymphocytes % (20.5 - 51.1 %) 20.9 Monocytes % (1.7 - 9.3 %) 11.5 H Eosinophils % (0 - 5 %) 3.4 Basophils % (0.0 - 2.0 %) 0.4 Absolute Granulocytes (1.4 - 6.5 /CUMM) 8.1 H Segmented Neutrophils (42.2 - 75.2 %) 75 Band Neutrophils (0.0 - 5.0 %) 3 Absolute Lymphocytes (1.2 - 3.4 /CUMM) 2.6 Lymphocytes (20.5 - 51.1 %) 14 L Monocytes (1.7 - 9.3 %) 8 Absolute Monocytes (0.10 - 0.60 /CUMM) 1.5 H Absolute Eosinophils (0.0 - 0.7 /CUMM) 0.4 Absolute Basophils (0.0 - 0.2 /CUMM) 0.1 Nucleated RBCs (0.0 - 0.0 /100WBC) 5 H Platelet Estimate (ADEQUATE) ADEQUATE Hypochromic-Microcytic 1+ Poikilocytosis 1+ Anisocytosis 2+ Target Cells 2+ A/P; 27 y/o M with pmh sig for hypertension, GI bleed, sickle cell anemia, asthma admitted with generalized pain specially in his back and his abdomen as well as acute sickle cell crisis. Patient currently getting treated for pneumonia. We obtained a CT chest yesterday to rule out any pulmonary infarct and CT findings are dictated above. 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 CT also consistent with cardiac enlargement. We have consulted cardiology. Echocardiogram has been ordered. Continue current antibiotics. We'll follow-up on all the cultures. Continue current pain medications. H&H relatively stable. Patient on Lovenox for DVT prophylaxis.
--- NOTE | 2017-10-22 07:41 | PN- Hematology ---
Subjective Subjective: Patient continues to have same pain. Breathing is about the same. He denies any fever or chills. He has no shortness of breath. Review of Systems: Limited due to somnolence Review of Systems Constitutional: Denies: chills, fever. Cardiovascular: Reports: chest pain. Respiratory: Denies: cough, short of breath. Gastrointestinal: Denies: abdominal pain. Musculoskeletal: Reports: back pain, joint pain, muscle pain. Neurological/Psychological: Denies: confusion. Hematologic/Endocrine: Denies: bruising, bleeding. All Other Systems: Reviewed and Negative Objective Vital Signs and I&Os Vital Signs Date Time Temp Pulse Resp B/P B/P Pulse O2 O2 Flow FiO2 Mean Ox Delivery Rate 10/22 0447 98.1 58 20 110/64 97 Nasal 2.0L Cannula 10/22 0000 Nasal 2.0L Cannula 10/21 2105 98.2 63 18 115/67 96 10/21 1445 98.0 78 18 122/65 98 Room Air 10/21 08 98 Nasal 2.0L Cannula Intake & Output 10/22 0800 10/22 0000 10/21 1600 10/21 0800 10/21 0000 10/20 1600 Intake Total 1200 7693 450 3238 1000 720 Output Total 1050 4833 749 8666 1750 600 Balance 150 50 400 0 -750 120 Intake, IV 1200 1200 1000 1000 Intake, Oral 600 720 Output, 200 150 Emesis Output, Urine 1050 1150 1000 1600 600 Physical Exam General Appearance: no apparent distress, comfortable, sleepy Head: atraumatic, normal appearance Respiratory: normal breath sounds, chest non-tender, no respiratory distress, quiet respiration, decreased breath sounds Extremities: no edema Neurologic/Psychiatric: somnolent Other Physical Findings: on 2L NC Current Medications: Current Medications Sig/Chayo Start time Last Medication Dose Route Stop Time Status Admin Acetaminophen 1,000 MG Q6P PRN 10/19 1545 10/21 N/A 1 UNIT IV 1950 Albuterol Sulfate 2 PUF Q4P PRN 10/19 1900 AC INH Azithromycin 500 MG DAILY 10/21 0956 AC 10/21 Sodium Chloride 250 ML IV 1204 Budesonide/ 2 PUF BID 10/19 2330 AC 10/21 Formoterol Fumarate INH 2055 Ceftriaxone Sodium 1,000 MG DAILY 10/21 0955 AC 10/21 IV 1204 Enoxaparin Sodium 40 MG DAILY 10/21 1245 AC 10/21 SC 1539 Folic Acid 1 MG DAILY 10/20 0900 AC 10/21 PO 0948 Hydroxyurea 1,000 MG BID 10/20 1359 AC 10/21 PO 2054 Morphine Sulfate 30 MG BID 10/19 2100 AC 10/21 PO 205 Morphine Sulfate 4 MG Q4P PRN 10/19 1545 AC 10/22 IV 0323 Omeprazole 40 MG DAILY AC 10/20 0700 AC 10/22 PO 0521 Ondansetron HCl 4 MG Q8P PRN 10/19 1345 AC 10/20 IV 2303 Sodium Chloride 1,000 ML Q8H 10/19 1545 AC 10/22 IV 0320 Results Last 24 Hours of Lab Results: Laboratory Tests 10/21 10/21 1923 1003 Hematology CBC w Diff MAN DIFF ORDERED WBC (4.8 - 10.8 /CUMM) 15.6 H RBC (4.70 - 6.10 /CUMM) 2.58 L Hgb (14.0 - 18.0 G/DL) 8.9 L Hct (42 - 52 %) 25.6 L MCV (80.0 - 94.0 FL) 99.3 H MCH (27.0 - 31.0 PG) 34.6 H MCHC (33.0 - 37.0 G/DL) 34.9 RDW (11.5 - 14.5 %) 21.8 H Plt Count (130 - 400 /CUMM) 236 MPV (7.4 - 10.4 FL) 11.5 H Segmented Neutrophils (42.2 - 75.2 %) 75 Band Neutrophils (0.0 - 5.0 %) 3 Lymphocytes (20.5 - 51.1 %) 14 L Monocytes (1.7 - 9.3 %) 8 Nucleated RBCs (0.0 - 0.0 /100WBC) 5 H Platelet Estimate (ADEQUATE) ADEQUATE Hypochromic-Microcytic 1+ Poikilocytosis 1+ Anisocytosis 2+ Target Cells 2+ Urines Urinalysis LIGHT H Urine Color (YEL,AMB,STR) YEL Urine Clarity (CLEAR) CLEAR Urine pH (5.0 - 8.0) 6.0 Ur Specific [place] (1.001 - 1.035) 1.015 Urine Protein (NEG,<30 MG/DL) NEG Urine Ketones (NEG) NEG Urine Nitrite (NEG) NEG Urine Bilirubin (NEG) NEG Urine Urobilinogen (0.1 - 1.0 EU/dl) 4.0 H Ur Leukocyte Esterase (NEG) NEG Ur Microscopic SEDIMENT EXAMINED Urine Hemoglobin (NEG) NEG Urine Glucose (N MG/DL) NEG Recent Imaging Studies: CTA Chest/abdomen/pelvis 09/06/2017: The heart is enlarged, though stable. There is no pericardial effusion. The great vessels are unremarkable. Specifically, there is no pulmonary arterial filling defect. There is no CT evidence for pulmonary embolism. There are no chest wall masses. Review of lung windows demonstrates that there are neither pleural effusions nor pneumothoraces. There are no consolidations. There is dependent bibasilar atelectasis. There are no pulmonary parenchymal nodules. The liver is of normal size and attenuation without focal lesions nor intrahepatic biliary ductal dilation. The patient is status post cholecystectomy. Surgical clips are identified. The pancreas and adrenal glands are unremarkable. The spleen is not visualized. Both kidneys are of normal size and attenuation without hydronephrosis or nephrolithiasis. Following the administration of IV contrast, prompt symmetric nephrograms are displayed. There is no abdominal free fluid. There is neither mesenteric nor retroperitoneal lymphadenopathy. Normal unopacified loops of small and large bowel are identified. There is no pelvic free fluid. The urinary bladder is unremarkable. There is neither pelvic nor inguinal lymphadenopathy. Bone windows: There is mixed sclerosis within the humeral and femoral heads and both innominate bones indicative of osteonecrosis. IMPRESSION: No CT evidence for pulmonary embolism. No evidence for acute abdominal or pelvic inflammatory or infectious processes. Osseous manifestations of sickle cell disease. CTA Chest 10/21/2017: Pulmonary arteries: The bolus timing on this study was acceptable for visualization of the pulmonary arterial tree. There are no intraluminal pulmonary arterial filling defects present to suggest pulmonary embolism in the main pulmonary artery, right and left main pulmonary artery, lobar and segmental branches. Lungs: Small bilateral pleural effusions are seen. There are patchy parenchymal opacities and volume loss noted in both lower lobes, most likely related to atelectatic changes. In addition, there is an area of dense consolidation in the right upper lobe peripherally, based upon the right major fissure. There are several small nodular densities seen in the right upper lobe, demonstrating irregular margins and surrounded by patchy groundglass opacity, measuring up to 1.5 x 1.0 cm (series 2, image 164). These findings in the right upper lobe may be explained by multifocal pneumonia). Less likely, findings may be related to evolving infarct with multifocal areas of hemorrhage in the right upper lobe. The central airways are patent. Aorta and heart: The heart is markedly enlarged with four-chamber enlargement seen, similar to prior exam. Thoracic aorta is normal in caliber and unremarkable in appearance. No evidence of aortic dissection or periaortic collection seen. Incidental note is made of 2 right renal arteries. There is a small pericardial effusion. Lymphatic structures: There is some amorphous soft tissue density in the anterosuperior mediastinum, consistent with residual thymic tissue, unchanged. There is right hilar and right azygos esophageal recess adenopathy seen, likely reactive to the lung findings. Upper abdomen: The patient is status post cholecystectomy. The spleen is not seen in the left upper quadrant. 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 The liver is enlarged and extends across the midline into the left upper quadrant. Limited evaluation of the upper abdominal viscera demonstrates no other focal abnormality. Bones: Again seen are mixed lytic and sclerotic densities in the humeral heads bilaterally, consistent with bone infarct/osteonecrosis, unchanged. No significant focal findings. IMPRESSION: 1. No evidence of pulmonary embolism. 2. Dense consolidation and multifocal irregular nodular opacities and groundglass opacities in the right upper lobe. Findings are most consistent with multifocal pneumonia. Associated reactive adenopathy is seen in the right hilum and azygous esophageal recess. Pulmonary infarct/pulmonary hemorrhage is felt to be much less likely as no abnormal filling defect is seen within the pulmonary arteries with the right upper lobe. Close clinical correlation and follow-up CT scan is recommended for reassessment. 3. Markedly enlarged heart, suspicious for a dilated cardiomyopathy. Associated small pericardial effusion is seen. 4. Status post cholecystectomy. 5. 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 6. 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 Assessment/Plan Hematology Assessment/Recommendations: Mr. Pham is a 27-year-old male with history of sickle cell anemia (follows by Dr. Simpson and [facility] previously) currently on hydroxyurea, stroke, cognitive impairment, asthma, GI bleeding, and hypertension who presented with worsening back pain, arm pain, and leg pain. He presents with sickle cell crisis. CXR was notable for possible small pleural effusion. CTA demonstrated likely multifocal pneumonia. He has small pericardial effusion. Blood work demonstrated stable hemoglobin yesterday. His baseline hemoglobin is around 9-10. He is being treated for pneumonia with azithromycin and ceftriaxone. Pain is stable. He will need to follow up with his bottler helper as an outpatient (Dr. Simpson or Dr. Diana at [facility]). He will continue on hydroxyurea. Recommendations: Sickle cell crisis: -continue IVF -continue nasal canula oxygen -encourage incentive spirometry -encourage ambulation -continue current pain management -continue folic acid -transfusion with RBC if symptomatic, should limit transfusion as much as possible -continue hydroxyurea -continue DVT prophylaxis -follow up with bottler helper as previously (Dr. Diana at [facility] or Dr. Simpson in [place]) Multifocal pneumonia: -continue antibiotics for pneumonia as per primary Please call [phone] with any questions or concerns. Problem List: 1. Sickle cell anemia 2. Pneumonia
[2017-10-22 08:32] LABS: ABSOLUTE BASOPHIL COUNT 0.1 /CUMM (0.0-0.2); ABSOLUTE EOSINOPHIL COUNT 0.4 /CUMM (0.0-0.7); ABSOLUTE GRANULOCYTE CT 8.1 /CUMM (1.4-6.5); ABSOLUTE LYMPH COUNT 2.6 /CUMM (1.2-3.4); ABSOLUTE MONOCYTE COUNT 1.5 /CUMM (0.10-0.60); BASOPHIL % 0.4 % (0.0-2.0); EOSINOPHIL % 3.4 % (0-5); MEAN CORPUSCULAR HGB CONC 33.3 G/DL (33.0-37.0); MEAN CORPUSCULAR VOLUME 101.8 FL (80.0-94.0); MEAN PLATELET VOLUME 11.2 FL (7.4-10.4); RBC DISTRIBUTION WIDTH 21.6 % (11.5-14.5); RED BLOOD CELL CT 2.45 /CUMM (4.70-6.10); WHITE BLOOD CELL COUNT 12.6 /CUMM (4.8-10.8)
[2017-10-22 09:14] LABS: GRANULOCYTE % 63.8 % (42.2-75.2); PLATELET COUNT 224 /CUMM (130-400)
--- NOTE | 2017-10-22 12:48 | Cons- Cardiology ---
General Information and HPI Consulting Request Date of Consult: 10/22/17 Requested By: Marcio FLOWERS,Erinn Reason for Consult: Cardiomyopathy Source of Information: patient, old records History of Present Illness: This is a 27-year-old male with a past medical history of hypertension, sickle cell anemia, moderate ventricular dilatation followed by cardiology (Dr. Donahue), and asthma who was admitted to [facility] with a chief complaint of diffuse moderate intensity pain similar to prior sickle cell attacks. He denied significant shortness of breath but did report some discomfort when trying to take a deep breath. Denied significant dyspnea. Denied orthopnea or paroxysmal nocturnal dyspnea. Denies increased lower extremity edema. He did recently have outpatient cardiac testing. Denies syncope history. I was consulted due to cardiomegaly noted on CT scan. Allergies/Medications Allergies: Coded Allergies: aspirin (Mild, GI UPSET 10/19/17) hydromorphone (From DILAUDID) (Mild, HIVES AND NAUSEA 10/19/17) ibuprofen (Mild, GI ISSUES 10/19/17) Home Med List: Hydroxyurea 500 MG CAPSULE 2 PO BID sickle cell anemia (Reported) Lisinopril 20 MG TABLET 1 TAB PO DAILY htn (Reported) Morphine Sulfate (Morphine Sulfate ER) 30 MG TABLET.ER 1 TAB PO BIDP PRN PAIN (Reported) Ondansetron (Zofran Odt) 4 MG TAB.RAPDIS 1 TAB SL TID PRN NAUSEA Pantoprazole Sodium (Protonix) 40 MG TABLET.DR 1 TAB PO DAILY STOMACH BURNING Current Medications: Current Medications Sig/Chayo Start time Last Medication Dose Route Stop Time Status Admin Acetaminophen 1,000 MG Q6P PRN 10/19 1545 10/21 N/A 1 UNIT IV 1950 Albuterol Sulfate 2 PUF Q4P PRN 10/19 1900 AC INH Azithromycin 500 MG DAILY 10/21 0956 10/22 Sodium Chloride 250 ML IV 08 Budesonide/ 2 PUF BID 10/19 2330 AC 10/22 Formoterol Fumarate INH 0803 Ceftriaxone Sodium 1,000 MG DAILY 10/21 0955 AC 10/22 IV 0803 Enoxaparin Sodium 40 MG DAILY 10/21 1245 AC 10/22 SC 0802 Folic Acid 1 MG DAILY 10/20 0900 AC 10/22 PO 0802 Hydroxyurea 1,000 MG BID 10/20 1359 10/22 PO 0802 Morphine Sulfate 30 MG BID 10/19 2100 AC 10/22 PO 0802 Morphine Sulfate 4 MG Q4P PRN 10/19 1545 AC 10/22 IV 1124 Omeprazole 40 MG DAILY AC 10/20 0700 AC 10/22 PO 0521 Ondansetron HCl 4 MG Q8P PRN 10/19 1345 AC 10/20 IV 2303 Patient Medication 1 ED ONE ONE 10/22 1145 DC Teaching ED 10/22 1146 Sodium Chloride 2 SPRAY Q4P PRN 10/22 0800 AC RY Sodium Chloride 1,000 ML Q8H 10/19 1545 AC 10/22 IV 0811 Review of Systems Review of Systems: Review of systems as per HPI. The remainder of a 10 point review of systems was reviewed and was otherwise negative. Past History Travel History Traveled to [place] past 21 day No Medical History Blood Transfusion Hx: Yes Neurological: STROKE HX EENT: NONE Cardiovascular: hypertension, ENLARGED HEART Respiratory: asthma Gastrointestinal: GERD, GI BLEED HX Hepatic: NONE Renal: NONE Musculoskeletal: NONE Psychiatric: depression Endocrine: hypothyroidism Blood Disorders: SICKLE CELL ANEMIA Cancer(s): NONE ULTRASOUND TESTER/Reproductive: NONE Surgical History Surgical History: cholecystectomy Family History Relations & Conditions If Any: MOTHER (sickle cell carrier). Psychosocial History Where Do You Live? Home Who Do You Live With? self Services at Home: None Primary Language: Uzbek Smoking Status: Never Smoked ETOH Use: denies use Illicit Drug Use: denies illicit drug use Functional Ability ADLs Independent: dressing, eating, toileting, bathing. Ambulation: independent IADLs Independent: shopping, housework, finances, food prep, telephone, transportation , medication admin. Exam & Diagnostic Data Vital Signs and I&O Vital Signs Date Time Temp Pulse Resp B/P B/P Pulse O2 O2 Flow FiO2 Mean Ox Delivery Rate 10/22 0800 Nasal 2.0L Cannula 10/22 0547 98.1 58 20 110/64 97 Nasal 2.0L Cannula 10/22 0000 Nasal 2.0L Cannula 10/21 2106 98.2 63 18 115/67 96 10/21 1445 98.0 78 18 122/65 98 Room Air Intake & Output 10/22 1600 10/22 0800 10/22 0000 10/21 1600 10/21 0800 10/21 0000 Intake Total 360 1200 4575 751 0317 1000 Output Total 450 1050 7275 114 1216 1750 Balance -90 150 50 400 0 -750 Intake, IV 1200 1200 1000 1000 Intake, Oral 360 600 Output, 200 150 Emesis Output, Urine 450 1050 1150 1000 1600 Physical Exam: General: no apparent distress. Alert. Eyes: No obvious scleral icterus. HEENT: No jugular venous distention or abnormal jugular venous pulsations. Cardiovascular: Normal intensity S1/S2. Regular Respiratory: No rales or rhonchi Abdomen: Soft, Musculoskeletal: No clubbing or cyanosis noted; no edema Skin: warm Labs/Joshua Results: Laboratory Tests 10/22 10/21 0730 1923 Chemistry Sodium (137 - 145 mmol/L) 141 Potassium (3.5 - 5.1 mmol/L) 4.2 Chloride (98 - 107 mmol/L) 109 H Carbon Dioxide (22 - 30 mmol/L) 27 Anion Gap (5 - 16) 6 BUN (9 - 20 mg/dL) 6 L Creatinine (0.7 - 1.2 mg/dL) 0.5 L Estimated GFR (>60 ml/min) > 60 BUN/Creatinine Ratio (7 - 25 %) 12.0 Iron (49 - 181 ug/dL) 38 L TIBC (261 - 462 ug/dL) 192 L Ferritin (17.9 - 464 ng/mL) 492.0 H Vitamin B12 (239 - 931 pg/mL) 746 Folate (2.76 - 20.0 ng/mL) 11.9 Hematology CBC w Diff NO MAN DIFF REQ MAN DIFF ORDERED WBC (4.8 - 10.8 /CUMM) 12.6 H 15.6 H RBC (4.70 - 6.10 /CUMM) 2.45 L 2.58 L Hgb (14.0 - 18.0 G/DL) 8.3 L 8.9 L Hct (42 - 52 %) 25.0 L 25.6 L MCV (80.0 - 94.0 FL) 101.8 H 99.3 H MCH (27.0 - 31.0 PG) 34.0 H 34.6 H MCHC (33.0 - 37.0 G/DL) 33.3 34.9 RDW (11.5 - 14.5 %) 21.6 H 21.8 H Plt Count (130 - 400 /CUMM) 224 236 MPV (7.4 - 10.4 FL) 11.2 H 11.5 H Gran % (42.2 - 75.2 %) 63.8 Lymphocytes % (20.5 - 51.1 %) 20.9 Monocytes % (1.7 - 9.3 %) 11.5 H Eosinophils % (0 - 5 %) 3.4 Basophils % (0.0 - 2.0 %) 0.4 Absolute Granulocytes (1.4 - 6.5 /CUMM) 8.1 H Segmented Neutrophils (42.2 - 75.2 %) 75 Band Neutrophils (0.0 - 5.0 %) 3 Absolute Lymphocytes (1.2 - 3.4 /CUMM) 2.6 Lymphocytes (20.5 - 51.1 %) 14 L Monocytes (1.7 - 9.3 %) 8 Absolute Monocytes (0.10 - 0.60 /CUMM) 1.5 H Absolute Eosinophils (0.0 - 0.7 /CUMM) 0.4 Absolute Basophils (0.0 - 0.2 /CUMM) 0.1 Nucleated RBCs (0.0 - 0.0 /100WBC) 5 H Platelet Estimate (ADEQUATE) ADEQUATE Hypochromic-Microcytic 1+ Poikilocytosis 1+ Anisocytosis 2+ Target Cells 2+ 10/21 10/21 1003 0728 Chemistry Sodium (137 - 145 mmol/L) 141 Potassium (3.5 - 5.1 mmol/L) 4.0 Chloride (98 - 107 mmol/L) 107 Carbon Dioxide (22 - 30 mmol/L) 26 Anion Gap (5 - 16) 8 BUN (9 - 20 mg/dL) 8 L Creatinine (0.7 - 1.2 mg/dL) 0.6 L Estimated GFR (>60 ml/min) > 60 BUN/Creatinine Ratio (7 - 25 %) 13.3 Total Bilirubin (0.2 - 1.3 mg/dL) 5.8 H Direct Bilirubin (< 0.4 mg/dL) 1.1 H AST (17 - 59 U/L) 48 ALT (21 - 72 U/L) 40 Alkaline Phosphatase (< 127 U/L) 167 H Total Protein (6.3 - 8.2 g/dL) 5.9 L Albumin (3.5 - 5.0 g/dL) 3.2 L Hematology CBC w Diff NO MAN DIFF REQ WBC (4.8 - 10.8 /CUMM) 13.4 H RBC (4.70 - 6.10 /CUMM) 2.47 L Hgb (14.0 - 18.0 G/DL) 8.6 L Hct (42 - 52 %) 25.1 L MCV (80.0 - 94.0 FL) 101.6 H MCH (27.0 - 31.0 PG) 34.7 H MCHC (33.0 - 37.0 G/DL) 34.2 RDW (11.5 - 14.5 %) 22.8 H Plt Count (130 - 400 /CUMM) 248 MPV (7.4 - 10.4 FL) 11.2 H Gran % (42.2 - 75.2 %) 70.4 Lymphocytes % (20.5 - 51.1 %) 12.9 L Monocytes % (1.7 - 9.3 %) 12.1 H Eosinophils % (0 - 5 %) 4.3 Basophils % (0.0 - 2.0 %) 0.3 Absolute Granulocytes (1.4 - 6.5 /CUMM) 9.4 H Absolute Lymphocytes (1.2 - 3.4 /CUMM) 1.7 Absolute Monocytes (0.10 - 0.60 /CUMM) 1.6 H Absolute Eosinophils (0.0 - 0.7 /CUMM) 0.6 Absolute Basophils (0.0 - 0.2 /CUMM) 0 Urines Urinalysis LIGHT H Urine Color (YEL,AMB,STR) YEL Urine Clarity (CLEAR) CLEAR Urine pH (5.0 - 8.0) 6.0 Ur Specific [place] (1.001 - 1.035) 1.015 Urine Protein (NEG,<30 MG/DL) NEG Urine Ketones (NEG) NEG Urine Nitrite (NEG) NEG Urine Bilirubin (NEG) NEG Urine Urobilinogen (0.1 - 1.0 EU/dl) 4.0 H Ur Leukocyte Esterase (NEG) NEG Ur Microscopic SEDIMENT EXAMINED Urine Hemoglobin (NEG) NEG Urine Glucose (N MG/DL) NEG Diagnostic Data EKG Results None available CXR Results Small right pleural effusion with right lower lung airspace opacity which may represent pneumonia. Mild prominence of the cardiac silhouette. This is similar to previous CT. Other Results CT scan: 1. No evidence of pulmonary embolism. 2. Dense consolidation and multifocal irregular nodular opacities and groundglass opacities in the right upper lobe. Findings are most consistent with multifocal pneumonia. Associated reactive adenopathy is seen in the right hilum and azygous esophageal recess. Pulmonary infarct/pulmonary hemorrhage is felt to be much less likely as no abnormal filling defect is seen within the pulmonary arteries with the right upper lobe. Close clinical correlation and follow-up CT scan is recommended for reassessment. 3. Markedly enlarged heart, suspicious for a dilated cardiomyopathy. Associated small pericardial effusion is seen. 4. Status post cholecystectomy. 5. 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 6. 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 Assessment/Plan Assessment/Plan 1. Sickle cell anemia with acute sickle cell crisis 2. Known history of moderate left ventricular dilatation with normal left ventricular function and normal right ventricular function along with severe left atrial dilatation; patient had a recent outpatient echocardiogram within the last 30 days 3. P[address] on [address] scan 4. Small pericardial effusion noted on CT scan The patient has a known history of dilated left ventricle and left atria which is followed by his outpatient calender machine operator. He had a recent outpatient echocardiogram within the last 30 days as described above and repeat inpatient echocardiogram is not currently required. His small pericardial effusion on CT scan is likely an incidental finding and can be followed by his outpatient calender machine operator. He may be a candidate for outpatient cardiac MRI in the future. Management of his pneumonia and sickle cell crisis per the medical team and hematology. He does have a normal left and right calculated ejection fraction by recent echocardiogram and recently had an outpatient exercise stress test that was negative for obvious ischemic changes. Please call if any additional inpatient questions or concerns. He should follow closely with his outpatient calender machine operator after discharge. Tino Cedeño MD [facility] Consult Acknowledgment - Thank you for your consult request.
--- NOTE | 2017-10-22 13:19 | PN- Student ---
Subjective Subjective: No acute events overmight. Patient seen and examined. Patient resting in bed. Still complaining of pain. Denied headache, CVS, SOB, nausea/vomiting, diarrhea. Objective Objective: Vital Signs Date Time Temp Pulse Resp B/P B/P Pulse O2 O2 Flow FiO2 Mean Ox Delivery Rate 10/22 0800 Nasal 2.0L Cannula 10/22 0547 98.1 58 20 110/64 97 Nasal 2.0L Cannula 10/22 0000 Nasal 2.0L Cannula 10/21 2106 98.2 63 18 115/67 96 10/21 1445 98.0 78 18 122/65 98 Room Air Intake & Output 10/22 1600 10/22 0800 10/22 0000 Intake Total 360 1200 1200 Output Total 450 1050 1150 Balance -90 150 50 Intake, IV 1200 1200 Intake, Oral 360 Output, Urine 450 1050 1150 PE: General: alert and oriented without any distress HEENT: NCAT, anicteric sclera, moist oral mucosa, no exudates CVS: Normal S1 and S2, regular rate and rythm Lungs: symetrical chest expansion, clear breath sounds, no added sound Abdomen: presented bowel sounds, soft, nontender, nondistended, no hepatosplenomegaly Extremities: palpable pulses, no edema Results Results: Laboratory Tests 10/22/17 0730: Anion Gap 6, Estimated GFR > 60, BUN/Creatinine Ratio 12.0, Iron 38 L, TIBC 192 L, Ferritin 492.0 H, Vitamin B12 746, Folate 11.9, CBC w Diff NO MAN DIFF REQ, RBC 2.45 L, MCV 101.8 H, MCH 34.0 H, MCHC 33.3, RDW 21.6 H, MPV 11.2 H, Gran % 63.8, Lymphocytes % 20.9, Monocytes % 11.5 H, Eosinophils % 3.4, Basophils % 0.4, Absolute Granulocytes 8.1 H, Absolute Lymphocytes 2.6, Absolute Monocytes 1.5 H, Absolute Eosinophils 0.4, Absolute Basophils 0.1 Assessment/Plan Assessment: 27 y/o M with PMHx of HTN, GI bleed, sickle cell anemia, stroke, cognitive impairment, asthma came to [place] [facility] with CC of abdominal pain, bilateral lower extremity pain, and low back pain of 8/10 in severity. Patient was recently discharge, about two weeks ago from [facility] due to similar complains. Admission labs: patient presented with transaminitis of AST 72 and ALT 40, Alkaline phosphatase 218, R, T. bili 5.9 and D. bili 1.6 on the setting of cholecystectomy in the past, WBC of 9.9.Based on history/PE, labs and imagine patient seem to be in sickle crisis. Patient have a reticulocyte count of 12.6 and LDH of 1427. Haptoglobin <15. His transaminitis maybe related to vaso- occlusive state. Plan: Sickle cell anemia: vaso-occlusive painful crisis -No thrombocytopenia -CXR showed a small pleural effusion with right lower lung airspace opacity which may represent pneumonia -WBC 13 today with no fever, no tachycardia -Treatment as comunity acquired pneumonia with Azitromycin and Ceftriaxone -O2 to prevent sickling and Folic acid to help make new RBC -Pain management with morphine -Will review records from [facility] and Hemtologist at [facility]: will resume hydroxyurea, per [facility] records patient take lisinopril. Will hold lisinopril due to BP in lower side. Hx of dilated Cardiomyopaty -CTA: markedly enlarged heart, suspicious for a dilated cardiomyopathy. Associated small pericardial effusion is seen -Cardiology consulted -F/U cardio note and recs -Patient had a ECHO prevously -Repeated ECHO not required -Small pericardial effusion on CT scan- likely an incidental -May be a candidate for outpatient cardiac MRI in the future Transaminitis (resolved) -F/U LFT -Negative RUQ US Hx of Asthma -No active asthma at this point -Cont. home meds (symbicort and albuterol inhaler) Code-full code Diet-regular diet DVT prophylaxis-Lovenox
[2017-10-22 13:59] VITALS: BP 90/60
[2017-10-22 22:56] VITALS: BP 113/66
[2017-10-23 06:43] VITALS: BP 106/64
--- NOTE | 2017-10-23 07:14 | PN- Housestaff ---
Daniel FLOWERS,Marbella 10/23/17 0714: Subjective Follow-up For: sickle cell anemia with pain crisis Review of Systems Constitutional: Reports: no symptoms, see HPI. Objective Last 24 Hrs of Vital Signs/I&O Vital Signs Date Time Temp Pulse Resp B/P B/P Pulse O2 O2 Flow FiO2 Mean Ox Delivery Rate 10/23 0643 97.4 56 18 106/64 100 Nasal 2.0L Cannula 10/23 0000 Nasal 2.0L Cannula 10/22 2256 98.4 65 18 113/66 94 Room Air 10/22 1620 Nasal 2.0L Cannula 10/22 1359 98.1 65 20 90/60 93 Nasal Cannula Intake & Output 10/23 1600 10/23 0800 10/23 0000 Intake Total 1680 2090 Output Total 400 1999 Balance 1280 90 Intake, IV 1200 1050 Intake, Oral 480 1040 Number 0 Bowel Movements Output, Urine 400 1999 Physical Exam General Appearance: Alert, Oriented X3, Cooperative, No Acute Distress Cardiovascular: Regular Rate, Normal S1, Normal S2, No Murmurs Lungs: Clear to Auscultation Abdomen: Soft, No Tenderness, No Hepatospenomegaly Neurological: Strength at 5/5 X4 Ext, Normal Tone, Sensation Intact, Cranial Nerves 3-12 NL Extremities: No Edema Current Medications: Current Medications Sig/Chayo Start time Last Medication Dose Route Stop Time Status Admin Acetaminophen 1,000 MG Q6P PRN 10/19 1545 AC 10/21 N/A 1 UNIT IV 195 Albuterol Sulfate 2 PUF Q4P PRN 10/19 1900 AC INH Azithromycin 500 MG DAILY 10/21 0956 AC 10/22 Sodium Chloride 250 ML IV 0803 Budesonide/ 2 PUF BID 10/19 2330 AC 10/22 Formoterol Fumarate INH 2005 Ceftriaxone Sodium 1,000 MG DAILY 10/21 0955 AC 10/22 IV 0803 Enoxaparin Sodium 40 MG DAILY 10/21 1245 AC 10/22 SC 0802 Folic Acid 1 MG DAILY 10/20 0900 AC 10/22 PO 0802 Hydroxyurea 1,000 MG BID 10/20 1359 AC 10/22 PO 2004 Morphine Sulfate 15 MG TID 10/23 0900 AC PO Morphine Sulfate 30 MG BID 10/19 2100 AC 10/22 PO 2004 Morphine Sulfate 4 MG Q4P PRN 10/19 1545 DC 10/23 IV 0635 Omeprazole 40 MG DAILY AC 10/20 0700 AC 10/23 PO 0635 Ondansetron HCl 4 MG Q8P PRN 10/19 1345 DC 10/23 IV 0219 Patient Medication 1 ED ONE ONE 10/22 1145 DC Teaching ED 10/22 1146 Sodium Chloride 2 SPRAY Q4P PRN 10/22 0800 AC RY Sodium Chloride 1,000 ML Q8H 10/19 1545 AC 10/23 IV 0258 Last 24 Hrs of Lab/Joshua Results Last 24 Hrs of Labs/Mics: Laboratory Tests 10/23/17 0630: Sodium Pending, Potassium Pending, Chloride Pending, Carbon Dioxide Pending, Anion Gap Pending, BUN Pending, Creatinine Pending, BUN/Creatinine Ratio Pending , CBC w Diff MAN DIFF ORDERED, WBC Pending, RBC Pending, Hgb Pending, Hct Pending, MCV Pending, MCH Pending, MCHC Pending, RDW Pending, Plt Count Pending, MPV Pending, Segmented Neutrophils Pending Assessment/Plan Assessment: 27-year-old -[place] with past medical history of sickle cell anemia, stroke, cognitive impairment, hypertension, GI bleed, asthma came to [place] [facility] with complaints of abdominal, bilateral lower extremity, lower back pain of 8 x 10 in severity. Assessment and plan 1. Sickle cell [id number] painful crisis 2. Transaminitis * Patient is currently managed with IV fluids, oxygen, pain medications * Pain meds-patient is on morphine ER 30 twice a day. Chest x-ray taken shows small left pleural effusion-with patchy opacity possibly pulmonary infarct/ pneumonia. Patient was started on ceftriaxone and azithromycin for the same. Patient also underwent CTA which showed small pericardial effusion with dilated cardiomyopathy and right side consolidation in the lung. This was discussed with the supervisor wet end who suggested to continue the current management. Patient was seen by electrical machine builder who suggested to continue the current management and there is no need for echo since he got an echo less than 30 days as outpatient with his electrical machine builder. He also suggested that patient might need an cardiac MRI later. * Patient's hemoglobin today 8.3-stable. Patient is asymptomatic. If patient becomes symptomatic due to anemia we will give him blood transfusion. Keep a high threshold for blood transfusion. Haptoglobin level is 15. Patient has a low TIBC with low iron level-chronic anemia picture. Patient has macrocytosis which can be secondary due to hydroxyurea use. Patient is on hydroxyurea 502 twice daily. * Transaminitis -trended down. Ultrasound negative. * Asthma-stable patient is on Symbicort and albuterol inhaler. Patient also uses nebuliser at home. Code-full code Diet-regular diet DVT prophylaxis-Lovenox Problem List: 1. Pneumonia 2. Sickle cell pain crisis Pain Ratin Pain Location: LE, ABD , LOW BACK Pain Goal: Remain pain free Pain Plan: MORPHINE Tomorrow's Labs & Rationales: Erinn Richard MD 10/23/17 1200: Attending MD Review Statement Attending Statement Attending MD Statement: examined this patient, discuss w/resident/PA/WARRANT CLERK, agreed w/resident/PA/WARRANT CLERK, reviewed EMR data (avail), discussed with nursing, discussed with case mgmt, reviewed images, amended to note Attending Assessment/Plan: Patient seen and examined, claims that he feels the same. This morning we stopped his IV morphine therefore he was somewhat upset. Patient claims that he uses home oxygen 2 L all the time. His white count is back to normal. vss. on exam; aox3, nad. cv; s1,s2, rrr resp; clear abd; soft, nt, bs+ ext; no edema Laboratory Tests 10/23 0630 Chemistry Sodium (137 - 145 mmol/L) 144 Potassium (3.5 - 5.1 mmol/L) 4.4 Chloride (98 - 107 mmol/L) 109 H Carbon Dioxide (22 - 30 mmol/L) 27 Anion Gap (5 - 16) 8 BUN (9 - 20 mg/dL) 7 L Creatinine (0.7 - 1.2 mg/dL) 0.5 L Estimated GFR (>60 ml/min) > 60 BUN/Creatinine Ratio (7 - 25 %) 14.0 Hematology CBC w Diff MAN DIFF ORDERED WBC (4.8 - 10.8 /CUMM) 9.6 RBC (4.70 - 6.10 /CUMM) 2.43 L Hgb (14.0 - 18.0 G/DL) 8.3 L Hct (42 - 52 %) 23.9 L MCV (80.0 - 94.0 FL) 98.3 H MCH (27.0 - 31.0 PG) 34.0 H MCHC (33.0 - 37.0 G/DL) 34.6 RDW (11.5 - 14.5 %) 20.7 H Plt Count (130 - 400 /CUMM) 218 MPV (7.4 - 10.4 FL) 11.7 H Segmented Neutrophils (42.2 - 75.2 %) 44 Lymphocytes (20.5 - 51.1 %) 32 Monocytes (1.7 - 9.3 %) 19 H Eosinophils (0 - 5.0 %) 3 Basophils (0.0 - 2.0 %) 2 Nucleated RBCs (0.0 - 0.0 /100WBC) 5 H Platelet Estimate (ADEQUATE) VERIFIED BY SMEAR Polychromasia 1+ Poikilocytosis 2+ Anisocytosis 2+ Target Cells 1+ A/P; 27 y/o M with pmh sig for hypertension, GI bleed, sickle cell anemia, asthma admitted with generalized pain specially in his back and his abdomen as well as acute sickle cell crisis. Patient currently getting treated for pneumonia. We obtained a CT chest yesterday to rule out any pulmonary infarct and CT findings are dictated above. 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 CT also consistent with cardiac enlargement. Patient has been seen by electrical machine builder and apparently has an outside electrical machine builder and had a recent echo within the last month which shows the same findings. At this point we can switch his antibiotics to oral Augmentin to complete a total of seven-day course. We have switched his IV morphine to oral morphine MSIR. We encouraged the patient to ambulate. H&H remained stable. Continue the rest of the management. Patient continues to improve then he can likely be discharged home in the next 24 hours.
[2017-10-23 08:32] LABS: HEMATOCRIT 23.9 % (42-52); MEAN CORPUSCULAR HGB CONC 34.6 G/DL (33.0-37.0); MEAN CORPUSCULAR VOLUME 98.3 FL (80.0-94.0); MEAN PLATELET VOLUME 11.7 FL (7.4-10.4); PLATELET COUNT 218 /CUMM (130-400); RBC DISTRIBUTION WIDTH 20.7 % (11.5-14.5); RED BLOOD CELL CT 2.43 /CUMM (4.70-6.10)
[2017-10-23 09:35] LABS: WHITE BLOOD CELL COUNT 9.6 /CUMM (4.8-10.8)
--- NOTE | 2017-10-23 10:58 | PN- Student ---
Subjective Subjective: No acute events overnight. Patient seen and examined this morning. Patient had question about changing IV morphine to PO and questions were answered. Still having pain. Patient mentioned that usually take one week to get better. Patient has not been ambulation, encourage was mentioned and he is okay with moving around today. Denied headache, chest pain, SOB, nausea/vomiting. Objective Objective: Vital Signs Date Time Temp Pulse Resp B/P B/P Pulse O2 O2 Flow FiO2 Mean Ox Delivery Rate 10/23 1439 97.9 60 18 110/64 95 Room Air 10/23 0800 99 Room Air 2.0L 10/23 0643 97.4 56 18 106/64 100 Nasal 2.0L Cannula 10/23 0000 Nasal 2.0L Cannula 10/22 2256 98.4 65 18 113/66 94 Room Air 10/22 1620 Nasal 2.0L Cannula Intake & Output 10/23 1600 10/23 0800 10/23 0000 Intake Total 1800 1680 2090 Output Total 551 157 0743 Balance 1075 1280 90 Intake, IV 1200 1200 1050 Intake, Oral 097 322 4829 Number 1 0 Bowel Movements Output, Urine 350 302 5097 PE: General: alert and oriented without any distress HEENT: NCAT, anicteric sclera, moist oral mucosa, no exudates CVS: Normal S1 and S2, regular rate and rythm Lungs: symetrical chest expansion, clear breath sounds, no added sound Abdomen: presented bowel sounds, soft, nontender, nondistended, no hepatosplenomegaly Extremities: palpable pulses, no edema Assessment/Plan Assessment: 27 y/o M with PMHx of HTN, GI bleed, sickle cell anemia, stroke, cognitive impairment, asthma came to [place] [facility] with CC of abdominal pain, bilateral lower extremity pain, and low back pain of 8/10 in severity. Patient was recently discharge, about two weeks ago from [facility] due to similar complains. Admission labs: patient presented with transaminitis of AST 72 and ALT 40, Alkaline phosphatase 218, R, T. bili 5.9 and D. bili 1.6 on the setting of cholecystectomy in the past, WBC of 9.9.Based on history/PE, labs and imagine patient seem to be in sickle crisis. Patient have a reticulocyte count of 12.6 and LDH of 1427. Haptoglobin <15. His transaminitis maybe related to vaso- occlusive state. Plan: Sickle cell anemia: vaso-occlusive painful crisis -No thrombocytopenia, Hgb stable at 8.3 -CXR showed a small pleural effusion with right lower lung airspace opacity which may represent pneumonia -WBC 9 today with no fever, no tachycardia -Treatment as comunity acquired pneumonia: oral Augmentin to complete a total of seven-day -O2 to prevent sickling and Folic acid to help make new RBC -Pain management with morphine:switched his IV morphine to oral morphine MSIR -Records from [facility] and Hemtologist at [place]: will resume hydroxyurea, per [place] records patient take lisinopril. Will hold lisinopril due to BP in lower side. Hx of dilated Cardiomyopaty -CTA: markedly enlarged heart, suspicious for a dilated cardiomyopathy. Associated small pericardial effusion is seen -Cardiology consulted -F/U cardio note and recs -Patient had a ECHO prevously -Repeated ECHO not required -Small pericardial effusion on CT scan- likely an incidental -May be a candidate for outpatient cardiac MRI in the future Transaminitis (resolved) -F/U LFT -Negative RUQ US Hx of Asthma -No active asthma at this point -Cont. home meds (symbicort and albuterol inhaler) Code-full code Diet-regular diet DVT prophylaxis-Lovenox
[2017-10-23 14:39] VITALS: BP 110/64
[2017-10-23 22:57] VITALS: BP 128/65
--- NOTE | 2017-10-24 07:13 | PN- Housestaff ---
Subjective Follow-up For: Sickle cell crisis Subjective: Patient seen and examined at bedside. No overnight events. Patient says he feels much better today. Patient's pain 5 x 10 bilateral lower extremity. He is eager to go home today. Review of Systems Constitutional: Reports: no symptoms, see HPI. Objective Last 24 Hrs of Vital Signs/I&O Vital Signs Date Time Temp Pulse Resp B/P B/P Pulse O2 O2 Flow FiO2 Mean Ox Delivery Rate 10/24 0800 2 Nasal 2.0L Cannula 10/24 0731 97.8 56 20 107/69 100 Nasal 2.0L Cannula 10/24 0000 100 Nasal 2.0L Cannula 10/23 2257 98.7 61 20 128/65 100 Nasal 2.0L Cannula 10/23 1600 94 Nasal 2.0L Cannula Intake & Output 10/24 1600 10/24 0800 10/24 0000 Intake Total 1000 1680 930 Output Total 1000 1100 Balance 1000 680 -170 Intake, IV 500 1200 450 Intake, Oral 500 480 480 Number 1 0 0 Bowel Movements Output, Urine 1000 1100 Physical Exam General Appearance: Alert, Oriented X3, Cooperative Cardiovascular: Regular Rate, Normal S1, Normal S2 Lungs: Clear to Auscultation Abdomen: Normal Bowel Sounds, Soft, No Tenderness Neurological: Normal Speech, Strength at 5/5 X4 Ext, Normal Tone, Sensation Intact Current Medications: Current Medications Sig/Chayo Start time Last Medication Dose Route Stop Time Status Admin Acetaminophen 1,000 MG Q6P PRN 10/19 1545 DCD 10/21 N/A 1 UNIT IV 1950 Albuterol Sulfate 2 PUF Q4P PRN 10/19 1900 DCD INH Amoxicillin/ 875 MG Q12 10/24 09 DCD 10/24 Clavulanate Potassium PO 0857 Budesonide/ 2 PUF BID 10/19 2330 DCD 10/24 Formoterol Fumarate INH 0857 Enoxaparin Sodium 40 MG DAILY 10/21 1245 DCD 10/24 SC 0856 Folic Acid 1 MG DAILY 10/20 09 DCD 10/24 PO 0859 Hydroxyurea 1,000 MG BID 10/20 1359 DCD 10/24 PO 0857 Morphine Sulfate 15 MG TID 10/23 0900 DCD 10/24 PO 1312 Morphine Sulfate 30 MG BID 10/19 2100 DCD 10/24 PO 0858 Omeprazole 40 MG DAILY AC 10/20 0700 DCD 10/24 PO 0455 Ondansetron HCl 4 MG Q8P PRN 10/23 1415 DCD 10/23 IV 1413 Sodium Chloride 2 SPRAY Q4P PRN 10/22 0800 DCD RY Sodium Chloride 1,000 ML Q8H 10/19 1545 DCD 10/24 IV 0455 Last 24 Hrs of Lab/Joshua Results Last 24 Hrs of Labs/Mics: Laboratory Tests 10/24/17 0635: CBC w Diff MAN DIFF ORDERED, RBC 2.40 L, MCV 99.6 H, MCH 34.3 H, MCHC 34.5, RDW 21.5 H, MPV 11.6 H, Segmented Neutrophils 53, Lymphocytes 28, Monocytes 10 H, Eosinophils 9 H, Nucleated RBCs 6 H, Platelet Estimate VERIFIED BY SMEAR, Polychromasia 1+, Hypochromic-Microcytic 1+, Anisocytosis 1+, Target Cells FEW Assessment/Plan Assessment: 27-year-old -[place] with past medical history of sickle cell anemia, stroke, cognitive impairment, hypertension, GI bleed, asthma came to [place] [facility] with complaints of abdominal, bilateral lower extremity, lower back pain of 8 x 10 in severity. Assessment and plan 1. Sickle cell [id number] painful crisis 2. Transaminitis * Patient is currently managed with IV fluids, oxygen, pain medications. Patient pain improved well with morphine. Patient will go home with morphine ER 30 twice a day and few pills of morphine MSIR. Patient advised to follow-up with this family care physician/trombone slide assembler/resident care spec within 1-2 weeks of discharge. Patient was seen by resident care spec who suggested to continue the current management and there is no need for echo since he got an echo less than 30 days as outpatient with his resident care spec. He also suggested that patient might need an cardiac MRI later. * Patient's hemoglobin today 8.3-stable. Patient is asymptomatic. Haptoglobin level is 15. Patient has a low TIBC with low iron level-chronic anemia picture. Patient has macrocytosis which can be secondary due to hydroxyurea use. Patient is on hydroxyurea 502 twice daily. * Transaminitis -trended down. Ultrasound negative. * Asthma-stable patient is on Symbicort and albuterol inhaler. Patient also uses nebuliser at home. Code-full code Diet-regular diet DVT prophylaxis-Lovenox Problem List: 1. Sickle cell pain crisis Pain Ratin Pain Location: none Pain Goal: Remain pain free Pain Plan: tylenol Tomorrow's Labs & Rationales: none
[2017-10-24 07:31] VITALS: BP 107/69
[2017-10-24] MEDS ORDERED: AMOX-CLAV 875-1 EACH PO ×2 (08:00→10:59)
--- NOTE | 2017-10-24 08:04 | PN- Hematology ---
Subjective Subjective: He states his pain is better. He denies any shortness of breath. He denies any new pain. Review of Systems: Constitutional: Denies: chills, fever. Cardiovascular: Reports: chest pain. Respiratory: Denies: cough, short of breath. Gastrointestinal: Denies: abdominal pain. Musculoskeletal: Reports: back pain, joint pain, muscle pain (much improved). Neurological/Psychological: Denies: confusion. Hematologic/Endocrine: Denies: bruising, bleeding. All Other Systems: Reviewed and Negative Objective Vital Signs and I&Os Vital Signs Date Time Temp Pulse Resp B/P B/P Pulse O2 O2 Flow FiO2 Mean Ox Delivery Rate 10/24 0731 97.8 56 20 107/69 100 Nasal 2.0L Cannula 10/24 0000 100 Nasal 2.0L Cannula 10/23 2257 98.7 61 20 128/65 100 Nasal 2.0L Cannula 10/23 1600 94 Nasal 2.0L Cannula 10/23 1439 97.9 60 18 110/64 95 Room Air 10/23 0800 99 Room Air 2.0L Intake & Output 10/24 0800 10/24 0000 10/23 1600 10/23 0800 10/23 0000 10/22 1600 Intake Total 9320 264 1595 1680 2090 2060 Output Total 1000 1100 445 726 3923 1800 Balance 680 -170 1075 1280 90 260 Intake, IV 4542 475 2268 1200 1050 1050 Intake, Oral 480 480 675 451 2856 1010 Number 0 0 1 0 Bowel Movements Output, Urine 1000 1100 831 205 1518 1800 Physical Exam: General Appearance: no apparent distress, comfortable, sleepy Head: atraumatic, normal appearance Respiratory: normal breath sounds, chest non-tender, no respiratory distress, quiet respiration, decreased breath sounds Extremities: no edema Neurologic/Psychiatric: somnolent, not as interactive Current Medications: Current Medications Sig/Chayo Start time Last Medication Dose Route Stop Time Status Admin Acetaminophen 1,000 MG Q6P PRN 10/19 1545 AC 10/21 N/A 1 UNIT IV 1950 Albuterol Sulfate 2 PUF Q4P PRN 10/19 1900 AC INH Amoxicillin/ 875 MG Q12 10/24 0900 AC Clavulanate Potassium PO Azithromycin 500 MG DAILY 10/21 0956 DC 10/23 Sodium Chloride 250 ML IV 0931 Budesonide/ 2 PUF BID 10/19 2330 AC 10/23 Formoterol Fumarate INH 2052 Ceftriaxone Sodium 1,000 MG DAILY 10/21 0955 DC 10/23 IV 09 Enoxaparin Sodium 40 MG DAILY 10/21 1245 AC 10/23 SC 0931 Folic Acid 1 MG DAILY 10/20 0900 AC 10/23 PO 0932 Hydroxyurea 1,000 MG BID 10/20 1359 AC 10/23 PO 2052 Morphine Sulfate 15 MG TID 10/23 0900 AC 10/23 PO 2052 Morphine Sulfate 30 MG BID 10/19 2100 AC 10/23 PO 2052 Omeprazole 40 MG DAILY AC 10/20 0700 AC 10/24 PO 0455 Ondansetron HCl 4 MG Q8P PRN 10/23 1415 AC 10/23 IV 1413 Sodium Chloride 2 SPRAY Q4P PRN 10/22 0800 AC RY Sodium Chloride 1,000 ML Q8H 10/19 1545 AC 10/24 IV 0455 Results Last 24 Hours of Lab Results: Laboratory Tests 10/24 0635 Hematology CBC w Diff Pending WBC Pending RBC Pending Hgb Pending Hct Pending MCV Pending MCH Pending MCHC Pending RDW Pending Plt Count Pending MPV Pending Assessment/Plan Hematology Assessment/Recommendations: Mr. Pham is a 27-year-old male with history of sickle cell anemia (follows by Dr. Simpson and Le[place] previously) currently on hydroxyurea, stroke, cognitive impairment, asthma, GI bleeding, and hypertension who presented with worsening back pain, arm pain, and leg pain. He presents with sickle cell crisis. CXR was notable for possible small pleural effusion. CTA demonstrated likely multifocal pneumonia. He has small pericardial effusion. He is doing well with antibiotics and current management. He has no new symptoms. Clinically improving. He is tentatively being discharge soon. Sickle cell crisis: -continue IVF, nasal canula oxygen prn with pain -encourage incentive spirometry -encourage ambulation -continue current pain management as per primary -continue folic acid and hydroxyurea -transfusion with RBC if symptomatic, should limit transfusion as much as possible -continue DVT prophylaxis -follow up with his previous general merchandise salesperson (Dr. Diana at [facility] or Dr. Simpson in [place]) Multifocal pneumonia: -continue antibiotics for pneumonia as per primary Please call [phone] with any questions or concerns. Problem List: 1. Sickle cell anemia 2. Pneumonia
[2017-10-24 08:15] LABS: HEMATOCRIT 23.9 % (42-52); MEAN CORPUSCULAR HGB 34.3 PG (27.0-31.0); MEAN CORPUSCULAR HGB CONC 34.5 G/DL (33.0-37.0); MEAN CORPUSCULAR VOLUME 99.6 FL (80.0-94.0); MEAN PLATELET VOLUME 11.6 FL (7.4-10.4); PLATELET COUNT 215 /CUMM (130-400); RBC DISTRIBUTION WIDTH 21.5 % (11.5-14.5)
[2017-10-24 09:04] LABS: WHITE BLOOD CELL COUNT 8.1 /CUMM (4.8-10.8)
[2017-10-24] MEDS ORDERED: MORPHINE SULFAT15 M4 PO ×2 (10:29→10:59)
--- NOTE | 2017-10-24 12:10 | PN- Att Addend ---
Attending Addendum Attending Brief Note Patient seen and examined, overall doing better today. His pain is under reasonable control. Patient does use home oxygen. H&H remained relatively stable. White blood cell count has normalized. Patient is otherwise medically stable for discharge and should follow-up with his plastics and composites inspector in [facility]. He should also follow with his primary care doctor and insert cutter in [facility].
[2017-10-24] MEDS ORDERED: FOLIC ACID1 M1 PO (12:36)
--- NOTE | 2017-10-24 14:41 | PN- Student ---
Subjective Subjective: No acute events overnight. Patient seen and examined this morning. Patient feel ready to go home. Objective Objective: Vital Signs Date Time Temp Pulse Resp B/P B/P Pulse O2 O2 Flow FiO2 Mean Ox Delivery Rate 10/24 0800 2 Nasal 2.0L Cannula 10/24 0731 97.8 56 20 107/69 100 Nasal 2.0L Cannula 10/24 0000 100 Nasal 2.0L Cannula 10/23 2257 98.7 61 20 128/65 100 Nasal 2.0L Cannula 10/23 1600 94 Nasal 2.0L Cannula Intake & Output 10/24 1600 10/24 0800 10/24 0000 Intake Total 1000 1680 930 Output Total 1000 1100 Balance 1000 680 -170 Intake, IV 500 1200 450 Intake, Oral 500 480 480 Number 1 0 0 Bowel Movements Output, Urine 1000 1100 PE General: alert and oriented without any distress HEENT: NCAT, anicteric sclera, moist oral mucosa, no exudates CVS: Normal S1 and S2, regular rate and rythm Lungs: symetrical chest expansion, clear breath sounds, no added sound Abdomen: presented bowel sounds, soft, nontender, nondistended, no hepatosplenomegaly Extremities: palpable pulses, no edema Results Results: Laboratory Tests 10/24/17 0635: CBC w Diff MAN DIFF ORDERED, RBC 2.40 L, MCV 99.6 H, MCH 34.3 H, MCHC 34.5, RDW 21.5 H, MPV 11.6 H, Segmented Neutrophils 53, Lymphocytes 28, Monocytes 10 H, Eosinophils 9 H, Nucleated RBCs 6 H, Platelet Estimate VERIFIED BY SMEAR, Polychromasia 1+, Hypochromic-Microcytic 1+, Anisocytosis 1+, Target Cells FEW 10/23/17 0630: Anion Gap 8, Estimated GFR > 60, BUN/Creatinine Ratio 14.0, CBC w Diff MAN DIFF ORDERED, RBC 2.43 L, MCV 98.3 H, MCH 34.0 H, MCHC 34.6, RDW 20.7 H, MPV 11.7 H, Segmented Neutrophils 44, Lymphocytes 32, Monocytes 19 H, Eosinophils 3, Basophils 2, Nucleated RBCs 5 H, Platelet Estimate VERIFIED BY SMEAR, Polychromasia 1+, Poikilocytosis 2+, Anisocytosis 2+, Target Cells 1+ 10/22/17 0730: Anion Gap 6, Estimated GFR > 60, BUN/Creatinine Ratio 12.0, Iron 38 L, TIBC 192 L, Ferritin 492.0 H, Vitamin B12 746, Folate 11.9, CBC w Diff NO MAN DIFF REQ, RBC 2.45 L, MCV 101.8 H, MCH 34.0 H, MCHC 33.3, RDW 21.6 H, MPV 11.2 H, Gran % 63.8, Lymphocytes % 20.9, Monocytes % 11.5 H, Eosinophils % 3.4, Basophils % 0.4, Absolute Granulocytes 8.1 H, Absolute Lymphocytes 2.6, Absolute Monocytes 1.5 H, Absolute Eosinophils 0.4, Absolute Basophils 0.1 10/21/171922: CBC w Diff MAN DIFF ORDERED, RBC 2.58 L, MCV 99.3 H, MCH 34.6 H, MCHC 34.9, RDW 21.8 H, MPV 11.5 H, Segmented Neutrophils 75, Band Neutrophils 3, Lymphocytes 14 L, Monocytes 8, Nucleated RBCs 5 H, Platelet Estimate ADEQUATE, Hypochromic-Microcytic 1+, Poikilocytosis 1+, Anisocytosis 2+, Target Cells 2+ Assessment/Plan Assessment: 27 y/o M with PMHx of HTN, GI bleed, sickle cell anemia, stroke, cognitive impairment, asthma came to [place] ER with CC of abdominal pain, bilateral lower extremity pain, and low back pain of 8/10 in severity. Patient was recently discharge, about two weeks ago from [facility] due to similar complains. Admission labs: patient presented with transaminitis of AST 72 and ALT 40, Alkaline phosphatase 218, R, T. bili 5.9 and D. bili 1.6 on the setting of cholecystectomy in the past, WBC of 9.9.Based on history/PE, labs and imagine patient seem to be in sickle crisis. Patient have a reticulocyte count of 12.6 and LDH of 1427. Haptoglobin <15. His transaminitis maybe related to vaso- occlusive state. Patient is stable to go home today. Plan: Sickle cell anemia: vaso-occlusive painful crisis -No thrombocytopenia, Hgb stable -CXR showed a small pleural effusion with right lower lung airspace opacity which may represent pneumonia which were are treating with Augmentin and he will complete a 7 days course. -Patient mentioned he use 2L oxygen at home, he will cont with it -Cont. Folic acid, hydroxyurea -Pain management with oral morphine MSIR -An apointment with Dr. Morris Diana MD has been made for 10/30/17 at 10:30am * Hx of dilated Cardiomyopaty -CTA: markedly enlarged heart, suspicious for a dilated cardiomyopathy. Associated small pericardial effusion is seen -Cardiology consulted -F/U cardio note and recs -Patient had a ECHO prevously -Repeated ECHO not required -Small pericardial effusion on CT scan- likely an incidental -May be a candidate for outpatient cardiac MRI in the future -An apointment with Dr. Lourdes Donahue MD has been made for 11/07/17 at 02:00pm* Transaminitis (resolved) -F/U LFT -Negative RUQ US Hx of Asthma -No active asthma at this point -Cont. home meds (symbicort and albuterol inhaler) Code-full code Diet-regular diet DVT prophylaxis-Lovenox *Patient was called and mentioned that he don't have access to a pen and piece of paper at the time, and asked for a call back to inform about the apointments. patient has to be call to inform the date and time of both of the apointments. Patient phone number: .
== END 2017-10-24 14:15 | DRG 662 ==
LOC: ERH 07:57 → 2NB 13:24 → ERHI 13:24 → ENRESERV 14:28 → ENTRNSPT 14:56 → EDTRNSPTSTS 15:34 → 2NB 15:39 → CMPTRNSPT 15:53 → 2NB 10-20 07:16 → ENPENDDIS 10-24 10:59 → ENTRNSPT 10-24 14:08 → EDTRNSPTSTS 10-24 14:09 → 2NB 10-24 14:15 → CMPTRNSPT 10-24 14:20
PROVIDERS: Emergency Medicine; Internal Medicine Adolescent Medicine; Student in an Organized Health Care Education/Training Program
DX: D57.00 Hb-SS disease with crisis, unspecified (principal); J18.9 Pneumonia, unspecified organism; R52 Pain, unspecified; I10 Essential (primary) hypertension; E03.9 Hypothyroidism, unspecified; K21.9 Gastro-esophageal reflux disease without esophagitis; J45.909 Unspecified asthma, uncomplicated; Z86.73 Personal history of transient ischemic attack (TIA), and cerebral infarction without residual deficits; R74.0 Nonspecific elevation of levels of transaminase and lactic acid dehydrogenase [LDH]; R70.1 Abnormal plasma viscosity; E80.6 Other disorders of bilirubin metabolism; R41.89 Other symptoms and signs involving cognitive functions and awareness
CPT/HCPCS: 2NBSP; 36415; 36592; 71046; 80307; 81001; 82436; 83010; 87040; 87086; 96361; 96374; 96375; 96376; 99291; J0131; J0456; J0696; J1200; J1650; J2405; J3490; J7040